=== PATIENT | female | born 1965 | race Caucasian/White ===

== ENCOUNTER 2017-07-18 10:08 | Emergency (ER) | payer SELFPAY ==
[2017-07-18] MEDS ORDERED: OXYCODONE-ACETAMINOPHEN 5-325 MG TABLET PO ONE (10:18)
[2017-07-18] MEDS ORDERED: ONDANSETRON 4 MG TAB.RAPDIS SL ONE (10:18)
--- NOTE | 2017-07-18 10:19 | ER Document Report ---
ED Medical Screen (RME) - General Chief Complaint: Abdominal Pain Stated Complaint: ABDOMINAL PAIN Time Seen by Provider: 07/18/17 10:17 Mode of Arrival: Wheelchair Information source: Patient TRAVEL OUTSIDE OF THE [place] IN LAST 30 DAYS: No - HPI Patient complains to provider of: Lower abdominal pain with vomiting and diarrhea Onset: Last week Notes: 07/18/17 10:19 Patient is a 52-year-old female who presents to the emergency room today complaining of 8 day history of vomiting and diarrhea with crampy abdominal pain in the lower portion of her abdomen, consistent with diverticulitis that she has had in the past which has required hospitalization, only abdominal surgery is gastric bypass approximately 16-17 years ago - Related Data Allergies/Adverse Reactions: morphine [Morphine] Allergy (Severe, Verified 10/21/15 17:16) Heart races, severe headache NSAIDS (Non-Steroidal Anti-Inflamma [Nsaids] Allergy (Severe, Verified 10/21/15 17:16) Severe diarrhea Past Medical History - Past Medical History Cardiac Medical History: Reports: Hx Hypertension Denies: Hx Atrial Fibrillation, Hx Congestive Heart Failure, Hx Coronary Artery Disease, Hx Heart Attack, Hx Hypercholesterolemia, Hx Peripheral Vascular Disease, Hx Pulmonary Embolism, Hx Heart Murmur Pulmonary Medical History: Reports: Hx Asthma, Hx Sleep Apnea Denies: Hx Bronchitis, Hx COPD, Hx Pneumonia, Hx Respiratory Failure, Hx Tuberculosis Neurological Medical History: Denies: Hx Cerebrovascular Accident, Hx Seizures Endocrine Medical History: Denies: Hx Graves' Disease, Hx Hyperthyroidism, Hx Hypothyroidism Renal/ Medical History: Reports: Hx Ovarian Cysts, Hx Pelvic Inflammatory Disease. Denies: Hx End Stage Renal Disease, Hx Kidney Stones, Hx Peritoneal Dialysis Malignancy Medical History: Denies: Hx Breast Cancer, Hx Cervical Cancer, Hx Leukemia, Hx Lung Cancer, Hx Ovarian Cancer GI Medical History: Reports: Hx Gastroesophageal Reflux Disease. 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 Denies: Hx Bowel Surgery, Hx Section, Hx Colostomy, Hx Coronary Artery Bypass Graft, Hx Hysterectomy, Hx Mastectomy, Hx Pacemaker, Hx Tubal Ligation - Immunizations Hx Diphtheria, Pertussis, Tetanus Vaccination: Yes Physical Exam - Vital signs Vitals: Temp Pulse Resp BP Pulse Ox 97.5 F 92 18 134/92 H 97 07/18/17 10:11 07/18/17 10:11 07/18/17 10:11 07/18/17 10:11 07/18/17 10:11 Course - Vital Signs Vital signs: Temp Pulse Resp BP Pulse Ox 97.5 F 92 18 134/92 H 97 07/18/17 10:11 07/18/17 10:11 07/18/17 10:11 07/18/17 10:11 07/18/17 10:11
[2017-07-18 11:14] LABS: ABSOLUTE BASOPHILS # (AUTO) 0.1 10^3/uL (0.0-0.2); ABSOLUTE EOSINOPHILS # (AUTO) 0.2 10^3/uL (0.0-0.6); ABSOLUTE LYMPHOCYTES (AUTO) 1.6 10^3/uL (0.5-4.7); ABSOLUTE MONOCYTES (AUTO) 0.4 10^3/uL (0.1-1.4); ABSOLUTE NEUT (AUTO) 10.2 10^3/uL (1.7-8.2); BASOPHILS % (AUTO) 0.9 % (0-2); EOSINOPHILS % (AUTO) 1.7 % (0-6); HEMOGLOBIN 12.5 g/dL (12.0-15.5); HGB HCT DIFFERENCE -1.5; LYMPHOCYTES % (AUTO) 12.5 % (13-45); MEAN CORPUSCULAR HEMOGLOBIN 30.1 pg (27.0-33.4); MEAN CORPUSCULAR VOLUME 94 fl (80-97); RED BLOOD COUNT 4.15 10^6/uL (3.72-5.28); RED CELL DISTRIBUTION WIDTH 14.5 % (11.5-14.0); SEGMENTED NEUTROPHILS % (AUTO) 81.9 % (42-78); WHITE BLOOD COUNT 12.5 10^3/uL (4.0-10.5)
[2017-07-18 11:15] LABS: APPEARANCE,URINE SLIGHTLY-CLOUDY
[2017-07-18 11:16] LABS: BILIRUBIN,URINE MODERATE (NEGATIVE); GLUCOSE, URINE NEGATIVE (NEGATIVE); KETONES,URINE 25 mg/dL (NEGATIVE)
[2017-07-18 11:18] LABS: URINE SPECIFIC GRAVITY 1.032
[2017-07-18 11:19] LABS: LEUKOCYTE ESTERASE,URINE LARGE (NEGATIVE); NITRITE,URINE NEGATIVE (NEGATIVE); PROTEIN,URINE 100 mg/dL (NEGATIVE); UROBILINOGEN,URINE NEGATIVE mg/dL (<2.0)
[2017-07-18 11:21] LABS: BACTERIA,URINE 1+ /HPF
[2017-07-18 11:27] LABS: ALANINE AMINOTRANSFERASE 14 U/L (9-52); ALBUMIN 4.9 g/dL (3.5-5.0); ALKALINE PHOSPHATASE 157 U/L (38-126); ANION GAP 18 (5-19); ASPARTATE AMINO TRANSFERASE 19 U/L (14-36); BILIRUBIN,DIRECT 0.4 mg/dL (0.0-0.4); BILIRUBIN,TOTAL 0.4 mg/dL (0.2-1.3); BLOOD UREA NITROGEN 30 mg/dL (7-20); CALCIUM 10.4 mg/dL (8.4-10.2); CARBON DIOXIDE 13 mmol/L (22-30); CHLORIDE 108 mmol/L (98-107); CREATININE RESULT 2.41 mg/dL (0.52-1.25); GLUCOSE 107 mg/dL (75-110); LIPASE 155.6 U/L (23-300); POTASSIUM 5.8 mmol/L (3.6-5.0); SODIUM 139.3 mmol/L (137-145); TOTAL PROTEIN 8.4 g/dL (6.3-8.2)
[2017-07-18] MEDS: NORMAL SALINE 1000 ML 1,000 ML IV PRN ×2 (12:22→14:05)
--- NOTE | 2017-07-18 12:25 | RADIOLOGY REPORT (SQ) ---
EXAM DESCRIPTION: CT ABD/PELVIS NO ORAL OR IV COMPLETED DATE/TIME: 07/18/2017 12:04 pm REASON FOR STUDY: lower abd pain COMPARISON: 05/27/2014 TECHNIQUE: CT scan of the abdomen and pelvis performed without intravenous or oral contrast. Images reviewed with lung, soft tissue, and bone windows. Reconstructed coronal and sagittal MPR images revi ewed. All images stored on PACS. All CT scanners at this facility use dose modulation, iterative reconstruction, and/or weight based d osing when appropriate to reduce radiation dose to as low as reasonably achievable (ALARA). [facility]: Dose Right [facility]: CareDose [facility]: Dose Right [facility]: Teradose 4D [facility]: Smart Brain Parade RADIATION DOSE: Up-to-date CT equipment and radiation dose reduction techniques were employed. CTDIv ol: 21.1 mGy. DLP: 1114 mGy-cm.mGy. LIMITATIONS: None. FINDINGS: LOWER CHEST: No significant findings. No nodules or infiltrates. NON-CONTRASTED LIVER, SPLEEN, ADRENALS: Evaluation limited by lack of IV contrast. No identified sign ificant masses. PANCREAS: No masses. No peripancreatic inflammatory changes. GALLBLADDER: Surgically absent. RIGHT KIDNEY AND URETER: No suspicious masses. Assessment limited by lack of IV contrast. No signif icant calcifications. No hydronephrosis or hydroureter. LEFT KIDNEY AND URETER: No suspicious masses. Assessment limited by lack of IV contrast. No signifi cant calcifications. No hydronephrosis or hydroureter. AORTA AND RETROPERITONEUM: No aneurysm. No retroperitoneal masses or adenopathy. BOWEL AND PERITONEAL CAVITY: There are postsurgical changes with evidence of prior gastric bypass. T here are clips in the right lower quadrant. APPENDIX: Surgically absent. PELVIS, BLADDER, AND ABDOMINAL WALL:There are anterior abdominal wall defects containing omental fat only. These are stable from prior study. IUD is in place. BONES: No significant findings. OTHER: No other significant finding. IMPRESSION: Anterior abdominal wall defect containing omental fat only. No acute findings in the ab domen or pelvis. COMMENT: Quality ID # [id number]: Final reports with documentation of one or more dose reduction techniques (e.g., Automated exposure control, adjustment of the mA and/or kV according to patient size, use of iterative reconstruction technique) TECHNICAL DOCUMENTATION: JOB ID: [id number]- All Rights Reserved
[2017-07-18] MEDS ORDERED: ONDANSETRON HCL INJ/PF 4 MG/2 ML SDV IV ONE (13:46)
[2017-07-18] MEDS ORDERED: TRAMADOL HCL 50 MG TABLET PO ONE (13:47)
[2017-07-18] MEDS ORDERED: SODIUM POLYSTYRENE SULFONATE 15 GM/60 ML PO ONE ×2 (13:55→15:51)
[2017-07-18 15:08] LABS: ANION GAP 15 (5-19); BLOOD UREA NITROGEN 28 mg/dL (7-20); CALCIUM 9.2 mg/dL (8.4-10.2); CARBON DIOXIDE 13 mmol/L (22-30); CHLORIDE 109 mmol/L (98-107); CREATININE RESULT 2.05 mg/dL (0.52-1.25); GLUCOSE 101 mg/dL (75-110); POTASSIUM 5.6 mmol/L (3.6-5.0); SODIUM 137.1 mmol/L (137-145)
--- NOTE | 2017-07-18 16:07 | ER Document Report ---
ED General - General Chief Complaint: Abdominal Pain Stated Complaint: ABDOMINAL PAIN Time Seen by Provider: 07/18/17 10:17 Mode of Arrival: Wheelchair TRAVEL OUTSIDE OF THE [place] IN LAST 30 DAYS: No - HPI Patient complains to provider of: Periumbilical abdominal pain tooth pain. Notes: Patient coming in patient is obese complaining of abdominal pain around her bellybutton. Patient states ongoing for a few days. Patient also complaining of tooth pain patient states she was recently placed on Bactrim for tooth pain patient states she just recently finished Bactrim patient thinks her pain is related to diverticulitis. Patient denies any fevers chills she does state that she is having some nausea vomiting and diarrhea at this time. Patient upon my evaluation resting comfortably in no obvious distress. - Related Data Allergies/Adverse Reactions: morphine [Morphine] Allergy (Severe, Verified 10/21/15 17:16) Heart races, severe headache NSAIDS (Non-Steroidal Anti-Inflamma [Nsaids] Allergy (Severe, Verified 10/21/15 17:16) Severe diarrhea Past Medical History - General Information source: Patient - Social History Smoking Status: Never Smoker Chew tobacco use (# tins/day): No Frequency of alcohol use: None Drug Abuse: None Family History: Reviewed & Not Pertinent - Past Medical History Cardiac Medical History: Reports: Hx Hypertension Denies: Hx Atrial Fibrillation, Hx Congestive Heart Failure, Hx Coronary Artery Disease, Hx Heart Attack, Hx Hypercholesterolemia, Hx Peripheral Vascular Disease, Hx Pulmonary Embolism, Hx Heart Murmur Pulmonary Medical History: Reports: Hx Asthma, Hx Sleep Apnea Denies: Hx Bronchitis, Hx COPD, Hx Pneumonia, Hx Respiratory Failure, Hx Tuberculosis Neurological Medical History: Denies: Hx Cerebrovascular Accident, Hx Seizures Endocrine Medical History: Reports: Hx Diabetes Mellitus Type 2 - borderline controlled by diet. Denies: Hx Graves' Disease, Hx Hyperthyroidism, Hx Hypothyroidism Renal/ Medical History: Reports: Hx Ovarian Cysts, Hx Pelvic Inflammatory Disease. Denies: Hx End Stage Renal Disease, Hx Kidney Stones, Hx Peritoneal Dialysis Malignancy Medical History: Denies: Hx Breast Cancer, Hx Cervical Cancer, Hx Leukemia, Hx Lung Cancer, Hx Ovarian Cancer GI Medical History: Reports: Hx Gastroesophageal Reflux Disease. 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 Denies: Hx Bowel Surgery, Hx Section, Hx Colostomy, Hx Coronary Artery Bypass Graft, Hx Hysterectomy, Hx Mastectomy, Hx Pacemaker, Hx Tubal Ligation - Immunizations Hx Diphtheria, Pertussis, Tetanus Vaccination: Yes Hx Pneumococcal Vaccination: 11/07/08 Review of Systems - Review of Systems Constitutional: No symptoms reported EENT: No symptoms reported Cardiovascular: No symptoms reported Respiratory: No symptoms reported Gastrointestinal: Abdominal pain, Nausea, Vomiting Genitourinary: No symptoms reported Female Genitourinary: No symptoms reported Musculoskeletal: No symptoms reported Skin: No symptoms reported Hematologic/Lymphatic: No symptoms reported Neurological/Psychological: No symptoms reported -: Yes All other systems reviewed and negative Physical Exam - Vital signs Vitals: Temp Pulse Resp BP Pulse Ox 97.5 F 92 18 134/92 H 97 07/18/17 10:11 07/18/17 10:11 07/18/17 10:11 07/18/17 10:11 07/18/17 10:11 Interpretation: Normal - General General appearance: Appears well, Alert - HEENT Head: Normocephalic, Atraumatic Eyes: Normal Pupils: PERRL Teeth diagram: 1 - Dental carry without signs of abscess or gingival cellulitis - Respiratory Respiratory status: No respiratory distress Chest status: Nontender Breath sounds: Normal Chest palpation: Normal - Cardiovascular Rhythm: Regular Heart sounds: Normal auscultation Murmur: No - Abdominal Inspection: Normal Distension: No distension Bowel sounds: Normal Tenderness: Nontender Organomegaly: No organomegaly - Back Back: Normal, Nontender - Extremities General upper extremity: Normal inspection, Nontender, Normal color, Normal ROM , Normal temperature General lower extremity: Normal inspection, Nontender, Normal color, Normal ROM , Normal temperature, Normal weight bearing. No: Cole's sign - Neurological Neuro grossly intact: Yes Cognition: Normal Orientation: AAOx4 [place] Coma Scale Eye Opening: Spontaneous [place] Coma Scale Verbal: Oriented [place] Coma Scale Motor: Obeys Commands [place] Coma Scale Total: 15 Speech: Normal Motor strength normal: LUE, RUE, LLE, RLE Sensory: Normal - Psychological Associated symptoms: Normal affect, Normal mood - Skin Skin Temperature: Warm Skin Moisture: Dry Skin Color: Normal Course - Re-evaluation Re-evalutation: 07/18/17 18:30 Patient's lab work shows elevated potassium with elevation in her BUN and creatinine. Patient does have underlying renal insufficiency more than likely the elevation is due to recent Bactrim. Patient was given IV fluids and recheck with decrease in the patient's potassium also a improvement of the renal state. EKG does not show any peaked T waves. Patient was given a dose of lactulose. The explained to the patient that she will need to follow-up in 1 week for repeat results to make sure that she drinks plenty of fluids. No sneeze of antibiotics at this time abdominal pain more likely caused by hernia. - Vital Signs Vital signs: Temp Pulse Resp BP Pulse Ox 97.5 F 104 H 18 154/103 H 97 07/18/17 10:11 07/18/17 16:29 07/18/17 16:29 07/18/17 16:29 07/18/17 16:29 - Laboratory Result Diagrams: 07/18/17 10:42 07/18/17 14:30 Laboratory results interpreted by me: 07/18/17 07/18/17 07/18/17 10:42 10:42 10:42 WBC 12.5 H RDW 14.5 H Plt Count 555 H Seg Neutrophils % 81.9 H Lymphocytes % 12.5 L Absolute Neutrophils 10.2 H Potassium 5.8 H Chloride 108 H Carbon Dioxide 13 L BUN 30 H Creatinine 2.41 H Est GFR ( Amer) 25 L Est GFR (Non-Af Amer) 21 L Calcium 10.4 H Alkaline Phosphatase 157 H Total Protein 8.4 H Urine Protein 100 H Urine Ketones 25 H Urine Bilirubin MODERATE H Ur Leukocyte Esterase LARGE H 07/18/17 14:30 WBC RDW Plt Count Seg Neutrophils % Lymphocytes % Absolute Neutrophils Potassium 5.6 H Chloride 109 H Carbon Dioxide 13 L BUN 28 H Creatinine 2.05 H Est GFR ( Amer) 31 L Est GFR (Non-Af Amer) 25 L Calcium Alkaline Phosphatase Total Protein Urine Protein Urine Ketones Urine Bilirubin Ur Leukocyte Esterase Discharge - Discharge Clinical Impression: Renal insufficiency, Abdominal pain from hernia, Dental caries, Serum potassium elevated, Yeast infection Condition: Good Disposition: HOME, SELF-CARE Instructions: Abdominal Pain ([facility]), Dentist Additional Instructions: Your laboratory studies today show signs of elevation in your potassium and your renal function. After IV hydration your renal function has almost improved to her baseline and your potassium has improved as well. Slightly elevated however at this time we can discharge her home. More likely this is due to the antibiotics that you were recently prescribed. I am going to give you a medication called Kayexalate that will help to eliminate the potassium thru her stool. I would highly recommend following up with your primary care physician local urgent care clinic or return to the ER in 1 week for repeat lab draw to make sure that her potassium has returned to a normal level. Your oral examination does reveal a severe dental carry this tooth does not look to have an abscess and at this time no signs of infection. To aid in the pain he will eventually need to have these teeth removed. He may follow-up with the distal clinics provided. Your abdominal pain is more likely due to a fat-containing hernia in the middle of the stomach. Take pain medication as prescribed Return to the ER symptoms worsen. Prescriptions: Metoclopramide HCl [Reglan] 5 mg PO Q6 #30 tablet Ondansetron [Zofran Odt 4 mg Tablet] 1 - 2 tab PO Q4H PRN #15 tab.rapdis PRN Reason: For Nausea/Vomiting Tramadol HCl [Ultram 50 mg Tablet] 50 mg PO ASDIR PRN #20 tablet PRN Reason: Forms: Follow-Up Laboratory Testing Referrals: SIMONA LARA MD [Primary Care Provider] - Follow up as needed
[2017-07-18] MEDS ORDERED: FLUCONAZOLE 100 MG TABLET PO ONE (16:27)
[2017-07-18 17:36] VITALS: BP 154/103
--- NOTE | 2017-07-18 20:31 | EKG REPORT ---
SEVERITY:- BORDERLINE ECG - SINUS RHYTHM CONSIDER ANTERIOR INFARCT : Confirmed by: Linda Sarah 18-Jul-2017 20:30:26
== END 2017-07-18 16:45 | disposition home or self-care (01) ==
LOC: ER 10:08
DX: N28.9 Disorder of kidney and ureter, unspecified (principal); K46.9 Unspecified abdominal hernia without obstruction or gangrene; E87.5 Hyperkalemia; B37.9 Candidiasis, unspecified; R10.33 Periumbilical pain; K08.89 Other specified disorders of teeth and supporting structures
CPT/HCPCS: 93005; 99284; 96361; 96374; 36415; 87086; 83690; 85025; 80048; 80053; 81001; 74176; 93010; S0119; J2405; J7030

== ENCOUNTER 2017-07-30 09:20 | Emergency (ER) | payer SELFPAY ==
[2017-07-30] MEDS ORDERED: ASPIRIN 81 MG TABLET, CHEWABLE PO ONE (09:32)
--- NOTE | 2017-07-30 09:49 | ER Document Report ---
ED Medical Screen (RME) - General Chief Complaint: Chest Pain Stated Complaint: CHEST PAIN Time Seen by Provider: 07/30/17 09:45 Mode of Arrival: Wheelchair Information source: Patient Notes: 52-year-old female history of hypertension presents with complaints of chest pain that started yesterday, patient notes it is sharp pain initially on the right side rating between her shoulder blades now intermittent sharp pain on left side with occasional twinges down the left arm I have greeted and performed a rapid initial assessment of this patient. A comprehensive ED assessment and evaluation of the patient, analysis of test results and completion of the medical decision making process will be conducted by additional ED providers. PHYSICAL EXAMINATION: GENERAL: Well-appearing, well-nourished and in no acute distress. HEAD: Atraumatic, normocephalic. EYES: Pupils equal round extraocular movements intact, conjunctiva are normal. ENT: Nares patent NECK: Normal range of motion LUNGS: No respiratory distress Musculoskeletal: Normal range of motion NEUROLOGICAL: Normal speech, normal gait. PSYCH: Normal mood, normal affect. SKIN: Warm, Dry, normal turgor, no rashes or lesions noted. TRAVEL OUTSIDE OF THE [place] IN LAST 30 DAYS: No - Related Data Allergies/Adverse Reactions: morphine [Morphine] Allergy (Severe, Verified 07/30/17 09:35) Heart races, severe headache NSAIDS (Non-Steroidal Anti-Inflamma [Nsaids] Allergy (Severe, Verified 07/30/17 09:35) Severe diarrhea Past Medical History - Social History Chew tobacco use (# tins/day): No Frequency of alcohol use: None Drug Abuse: None - Past Medical History Cardiac Medical History: Reports: Hx Hypertension Denies: Hx Atrial Fibrillation, Hx Congestive Heart Failure, Hx Coronary Artery Disease, Hx Heart Attack, Hx Hypercholesterolemia, Hx Peripheral Vascular Disease, Hx Pulmonary Embolism, Hx Heart Murmur Pulmonary Medical History: Reports: Hx Asthma, Hx Sleep Apnea Denies: Hx Bronchitis, Hx COPD, Hx Pneumonia, Hx Respiratory Failure, Hx Tuberculosis Neurological Medical History: Denies: Hx Cerebrovascular Accident, Hx Seizures Endocrine Medical History: Reports: Hx Diabetes Mellitus Type 2 - borderline controlled by diet. Denies: Hx Graves' Disease, Hx Hyperthyroidism, Hx Hypothyroidism Renal/ Medical History: Reports: Hx Ovarian Cysts, Hx Pelvic Inflammatory Disease. Denies: Hx End Stage Renal Disease, Hx Kidney Stones, Hx Peritoneal Dialysis Malignancy Medical History: Denies: Hx Breast Cancer, Hx Cervical Cancer, Hx Leukemia, Hx Lung Cancer, Hx Ovarian Cancer GI Medical History: Reports: Hx Gastroesophageal Reflux Disease. 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 Denies: Hx Bowel Surgery, Hx Section, Hx Colostomy, Hx Coronary Artery Bypass Graft, Hx Hysterectomy, Hx Mastectomy, Hx Pacemaker, Hx Tubal Ligation - Immunizations Hx Diphtheria, Pertussis, Tetanus Vaccination: Yes Physical Exam - Vital signs Vitals: Temp Pulse Resp BP Pulse Ox 97.7 F 74 20 154/95 H 97 07/30/17 09:35 07/30/17 09:35 07/30/17 09:35 07/30/17 09:35 07/30/17 09:35 Course - Vital Signs Vital signs: Temp Pulse Resp BP Pulse Ox 97.7 F 74 20 154/95 H 97 07/30/17 09:35 07/30/17 09:35 07/30/17 09:35 07/30/17 09:35 07/30/17 09:35
[2017-07-30 10:36] LABS: ABSOLUTE BASOPHILS # (AUTO) 0.1 10^3/uL (0.0-0.2); ABSOLUTE EOSINOPHILS # (AUTO) 0.4 10^3/uL (0.0-0.6); ABSOLUTE LYMPHOCYTES (AUTO) 1.4 10^3/uL (0.5-4.7); ABSOLUTE MONOCYTES (AUTO) 0.5 10^3/uL (0.1-1.4); BASOPHILS % (AUTO) 0.7 % (0-2); EOSINOPHILS % (AUTO) 5.2 % (0-6); HEMATOCRIT 30.1 % (36.0-47.0); HGB HCT DIFFERENCE -0.1; LYMPHOCYTES % (AUTO) 16.9 % (13-45); MEAN CORPUSCULAR HEMOGLOBIN 30.4 pg (27.0-33.4); MEAN CORPUSCULAR HGB CONC 33.2 g/dL (32.0-36.0); MEAN CORPUSCULAR VOLUME 92 fl (80-97); MONOCYTES % (AUTO) 5.9 % (3-13); RED BLOOD COUNT 3.28 10^6/uL (3.72-5.28); RED CELL DISTRIBUTION WIDTH 14.6 % (11.5-14.0); SEGMENTED NEUTROPHILS % (AUTO) 71.3 % (42-78); WHITE BLOOD COUNT 8.4 10^3/uL (4.0-10.5)
[2017-07-30 10:56] LABS: ALANINE AMINOTRANSFERASE 13 U/L (9-52); ALBUMIN 3.7 g/dL (3.5-5.0); ALKALINE PHOSPHATASE 111 U/L (38-126); ANION GAP 13 (5-19); ASPARTATE AMINO TRANSFERASE 17 U/L (14-36); BILIRUBIN,DIRECT 0.2 mg/dL (0.0-0.4); BILIRUBIN,TOTAL 0.2 mg/dL (0.2-1.3); BLOOD UREA NITROGEN 13 mg/dL (7-20); CALCIUM 9.3 mg/dL (8.4-10.2); CARBON DIOXIDE 17 mmol/L (22-30); CHLORIDE 111 mmol/L (98-107); CREATINE KINASE 80 U/L (30-135); GLUCOSE 93 mg/dL (75-110); POTASSIUM 4.3 mmol/L (3.6-5.0); SODIUM 141.4 mmol/L (137-145); TOTAL PROTEIN 6.5 g/dL (6.3-8.2)
[2017-07-30 11:07] LABS: CREATINE KINASE MB 1.25 ng/mL (<4.55)
[2017-07-30 11:08] LABS: TROPONIN I < 0.012 ng/mL
--- NOTE | 2017-07-30 11:08 | RADIOLOGY REPORT (SQ) ---
EXAM DESCRIPTION: CHEST SINGLE VIEW COMPLETED DATE/TIME: 07/30/2017 10:43 am REASON FOR STUDY: chest pain COMPARISON: Chest films 07/12/2007, 04/20/2012 EXAM PARAMETERS: NUMBER OF VIEWS: One view. TECHNIQUE: Single frontal radiographic view of the chest acquired. RADIATION DOSE: NA LIMITATIONS: Large patient, AP portable technique FINDINGS: LUNGS AND PLEURA: No opacities, masses or pneumothorax. No pleural effusion. MEDIASTINUM AND HILAR STRUCTURES: No masses. Contour normal. HEART AND VASCULAR STRUCTURES: Heart normal in size. Normal vasculature. BONES: No acute findings. HARDWARE: None in the chest. OTHER: No other significant finding. IMPRESSION: NO ACUTE RADIOGRAPHIC FINDING IN THE CHEST. TECHNICAL DOCUMENTATION: JOB ID: [id number]
[2017-07-30] MEDS ORDERED: IPRATROPIUM/ALBUTEROL 0.5-2.5 MG/3 ML AMPUL NEB ONE (11:41)
[2017-07-30 14:30] LABS: APPEARANCE,URINE SLIGHTLY-CLOUDY; BILIRUBIN,URINE NEGATIVE (NEGATIVE); GLUCOSE, URINE NEGATIVE (NEGATIVE); KETONES,URINE NEGATIVE (NEGATIVE); LEUKOCYTE ESTERASE,URINE TRACE (NEGATIVE); NITRITE,URINE NEGATIVE (NEGATIVE); PROTEIN,URINE 30 mg/dL (NEGATIVE); UROBILINOGEN,URINE NEGATIVE mg/dL (<2.0)
[2017-07-30] MEDS ORDERED: ALBUTEROL SULFATE HFA (90 MCG/PUFF) 8 GM MDI (1 MDI/ER DISP) IH ONE (14:44)
[2017-07-30] MEDS ORDERED: PREDNISONE 20 MG TABLET PO ONE (14:44)
--- NOTE | 2017-07-30 14:49 | ER Document Report ---
ED General - General Chief Complaint: Chest Pain Stated Complaint: CHEST PAIN Time Seen by Provider: 07/30/17 09:45 Mode of Arrival: Wheelchair TRAVEL OUTSIDE OF THE [place] IN LAST 30 DAYS: No - HPI Patient complains to provider of: Chest pain Notes: Patient coming in for evaluation of chest pain. PatientStates ongoing since day prior to arrival. Patient states substernal chest pain that goes to the right side. Patient denies any recent trauma patient states slight shortness of breath. Patient denies any sick contacts denies any recent travel. Patient resting comfortably upon my evaluation. - Related Data Allergies/Adverse Reactions: morphine [Morphine] Allergy (Severe, Verified 07/30/17 09:35) Heart races, severe headache NSAIDS (Non-Steroidal Anti-Inflamma [Nsaids] Allergy (Severe, Verified 07/30/17 09:35) Severe diarrhea Past Medical History - General Information source: Patient - Social History Smoking Status: Never Smoker Chew tobacco use (# tins/day): No Frequency of alcohol use: None Drug Abuse: None Family History: Reviewed & Not Pertinent - Past Medical History Cardiac Medical History: Reports: Hx Hypertension Denies: Hx Atrial Fibrillation, Hx Congestive Heart Failure, Hx Coronary Artery Disease, Hx Heart Attack, Hx Hypercholesterolemia, Hx Peripheral Vascular Disease, Hx Pulmonary Embolism, Hx Heart Murmur Pulmonary Medical History: Reports: Hx Asthma, Hx Sleep Apnea Denies: Hx Bronchitis, Hx COPD, Hx Pneumonia, Hx Respiratory Failure, Hx Tuberculosis Neurological Medical History: Denies: Hx Cerebrovascular Accident, Hx Seizures Endocrine Medical History: Reports: Hx Diabetes Mellitus Type 2 - borderline controlled by diet. Denies: Hx Graves' Disease, Hx Hyperthyroidism, Hx Hypothyroidism Renal/ Medical History: Reports: Hx Ovarian Cysts, Hx Pelvic Inflammatory Disease. Denies: Hx End Stage Renal Disease, Hx Kidney Stones, Hx Peritoneal Dialysis Malignancy Medical History: Denies: Hx Breast Cancer, Hx Cervical Cancer, Hx Leukemia, Hx Lung Cancer, Hx Ovarian Cancer GI Medical History: Reports: Hx Gastroesophageal Reflux Disease. 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 Denies: Hx Bowel Surgery, Hx Section, Hx Colostomy, Hx Coronary Artery Bypass Graft, Hx Hysterectomy, Hx Mastectomy, Hx Pacemaker, Hx Tubal Ligation - Immunizations Hx Diphtheria, Pertussis, Tetanus Vaccination: Yes Hx Pneumococcal Vaccination: 11/07/08 Review of Systems - Review of Systems Constitutional: No symptoms reported EENT: No symptoms reported Cardiovascular: Chest pain Respiratory: No symptoms reported Gastrointestinal: No symptoms reported Genitourinary: No symptoms reported Female Genitourinary: No symptoms reported Musculoskeletal: No symptoms reported Skin: No symptoms reported Hematologic/Lymphatic: No symptoms reported Neurological/Psychological: No symptoms reported -: Yes All other systems reviewed and negative Physical Exam - Vital signs Vitals: Temp Pulse Resp BP Pulse Ox 97.7 F 74 20 154/95 H 97 07/30/17 09:35 07/30/17 09:35 07/30/17 09:35 07/30/17 09:35 07/30/17 09:35 Interpretation: Normal - General General appearance: Appears well, Alert - HEENT Head: Normocephalic, Atraumatic Eyes: Normal Pupils: PERRL - Respiratory Respiratory status: No respiratory distress Chest status: Tender Breath sounds: Wheezing Chest palpation: Normal - Cardiovascular Rhythm: Regular Heart sounds: Normal auscultation Murmur: No - Abdominal Inspection: Normal Distension: No distension Bowel sounds: Normal Tenderness: Nontender Organomegaly: No organomegaly - Back Back: Normal, Nontender - Extremities General upper extremity: Normal inspection, Nontender, Normal color, Normal ROM , Normal temperature General lower extremity: Normal inspection, Nontender, Normal color, Normal ROM , Normal temperature, Normal weight bearing. No: Cole's sign - Neurological Neuro grossly intact: Yes Cognition: Normal Orientation: AAOx4 Jose Coma Scale Eye Opening: Spontaneous Jose Coma Scale Verbal: Oriented [place] Coma Scale Motor: Obeys Commands Jose Coma Scale Total: 15 Speech: Normal Motor strength normal: LUE, RUE, LLE, RLE Sensory: Normal - Psychological Associated symptoms: Normal affect, Normal mood - Skin Skin Temperature: Warm Skin Moisture: Dry Skin Color: Normal Course - Re-evaluation Re-evalutation: 07/30/17 14:46 Patient coming in for evaluation of chest pain. Chest x-ray and laboratory studies are negative for any acute pathology. Patient's wheezing did improve that there are no large treatment. More likely pain could be viral etiology patient's vital signs have remained stable while here in the ER. Will discharge patient home will treat for viral URI. - Vital Signs Vital signs: Temp Pulse Resp BP Pulse Ox 97.7 F 74 9 L 135/60 H 97 07/30/17 09:35 07/30/17 09:35 07/30/17 11:11 07/30/17 11:11 07/30/17 11:11 - Laboratory Result Diagrams: 07/30/17 10:02 07/30/17 10:02 Laboratory results interpreted by me: 07/30/17 07/30/17 07/30/17 10:02 10:02 13:53 RBC 3.28 L Hgb 10.0 L Hct 30.1 L RDW 14.6 H Chloride 111 H Carbon Dioxide 17 L Creatinine 1.30 H Est GFR ( Amer) 52 L Est GFR (Non-Af Amer) 43 L Urine Protein 30 H Ur Leukocyte Esterase TRACE H Discharge - Discharge Clinical Impression: Viral URI, Chest wall pain Condition: Good Disposition: HOME, SELF-CARE Instructions: Anti-Inflammatory Medication ([facility]), Chest Wall Pain ([facility]), Upper Respiratory Illness ([facility]) Additional Instructions: Evaluation today reveals no signs of critical pathology. Laboratory studies are negative forAny signs of cardiac ischemia.Your EKG is also normal. Chest x- ray does not show any signs of infection. I do believe that your symptoms are more likely due to a viral cause causing you to wheeze and have myalgias or muscle pain. Take medications as prescribed follow-up with your primary care physician recommend taking the albuterol inhaler 2 puffs every 4 hours as needed for shortness of breath. Prescriptions: Prednisone [Deltasone] 60 mg PO DAILY #24 tablet Forms: Return to Work
[2017-07-30 15:24] VITALS: BP 148/90
--- NOTE | 2017-07-31 08:17 | EKG REPORT ---
SEVERITY:- DEFECTIVE ECG - REGULAR RHYTHM MINIMAL ST DEPRESSION, LATERAL LEADS : Confirmed by: Cb Talbot MD 31-Jul-2017 08:17:13
== END 2017-07-30 15:24 | disposition home or self-care (01) ==
LOC: ER 09:20
DX: J06.9 Acute upper respiratory infection, unspecified (principal); B34.9 Viral infection, unspecified; R07.89 Other chest pain
CPT/HCPCS: 93005; 94640; 99285; 36415; 82553; 82550; 85025; 80053; 81001; 84484; 71010; 93010; J7512; J3490; J7620

== ENCOUNTER 2017-08-07 10:12 | Emergency (ER) | payer SELFPAY ==
[2017-08-07] MEDS ORDERED: DEXAMETHASONE SOD PHOS INJ 10 MG/1 ML VIAL IM ONE (11:03)
[2017-08-07] MEDS ORDERED: ONDANSETRON 4 MG TAB.RAPDIS PO ONE (11:04)
[2017-08-07] MEDS ORDERED: KETOROLAC TROMETHAMINE 60 MG/2 ML SDV IM ONE (11:04)
--- NOTE | 2017-08-07 11:32 | RADIOLOGY REPORT (SQ) ---
EXAM DESCRIPTION: L SPINE WHOLE COMPLETED DATE/TIME: 08/07/2017 11:25 am REASON FOR STUDY: pain increase with movement COMPARISON: None. NUMBER OF VIEWS: Five views including obliques. TECHNIQUE: AP, lateral, oblique, and sacral radiographic images acquired of the lumbar spine. LIMITATIONS: None. FINDINGS: MINERALIZATION: Normal. SEGMENTATION: Normal. No transitional anatomy. ALIGNMENT: Normal. VERTEBRAE: Maintained height. No fracture or worrisome bone lesion. DISCS: Multilevel disc space narrowing with osteophytes. POSTERIOR ELEMENTS: Pedicles and facets are intact. No pars defect or posterior arch defects. Facet arthropathy is present. HARDWARE: Left hip arthroplasty. PARASPINAL SOFT TISSUES: Normal. PELVIS: Intact as visualized. No fractures or worrisome bone lesions. SI joints intact. OTHER: No other significant finding. IMPRESSION: SPONDYLOSIS WITHOUT BONE LESION OR FRACTURE. TECHNICAL DOCUMENTATION: JOB ID: [id number] [employer]- All Rights Reserved
--- NOTE | 2017-08-07 11:34 | RADIOLOGY REPORT (SQ) ---
EXAM DESCRIPTION: HIP RIGHT AP/LATERAL COMPLETED DATE/TIME: 08/07/2017 11:25 am REASON FOR STUDY: pain increase with movement COMPARISON: None. NUMBER OF VIEWS: Two views. TECHNIQUE: AP pelvis and additional AP and frog-leg view of the right hip. LIMITATIONS: Body habitus. FINDINGS: There is joint space narrowing and osteophyte formation in the right hip status post left hip arthroplasty. No evidence of fracture or dislocation. IMPRESSION: Osteoarthritis. No acute findings. TECHNICAL DOCUMENTATION: JOB ID: [id number]- All Rights Reserved
[2017-08-07] MEDS ORDERED: LIDOCAINE 5% (700 MG) TRANSDERMAL ADH..PATCH TP ONE (11:47)
--- NOTE | 2017-08-07 11:47 | ER Document Report ---
ED Neck/Back Problem - General Chief Complaint: Low Back Pain Stated Complaint: BACK PAIN Time Seen by Provider: 08/07/17 10:51 Mode of Arrival: Ambulatory Information source: Patient Notes: 52-year-old female presents to ED for complaint of back pain for the last several years hip and groin pain for the last several months. She states it is progressively getting worse. She has not no loss control of bowel bladder. No loss control of muscles to the legs. No loss of sensation to the groin. She does have increasing diarrhea and nausea which is her normal. She is awake alert and oriented and able to answer all questions. She has pupils equally react to light and speaks in full sentences. She denies any new onset of weakness. TRAVEL OUTSIDE OF THE [place] IN LAST 30 DAYS: No - HPI Patient complains to provider of: Pain, Lower back. No: Injury Onset: Other - Low back for several years right hip and groin for several months Where: Home Onset: Chronic Timing: Still present, Worse Quality of pain: Sharp Pain Level: 4 Recent injury: No Associated symptoms: Like prior neck/back pain, Radiation to leg, Lower back pain. denies: Constipation, Incontinence, Sensory loss, Unable to urinate Exacerbated by: Movement of trunk, Sitting position Relieved by: Nothing Similar symptoms previously: Yes Recently seen / treated by doctor: No - Related Data Allergies/Adverse Reactions: morphine [Morphine] Allergy (Severe, Verified 08/07/17 10:23) Heart races, severe headache NSAIDS (Non-Steroidal Anti-Inflamma [Nsaids] Allergy (Severe, Verified 08/07/17 10:23) Severe diarrhea Past Medical History - General Information source: Patient - Social History Smoking Status: Never Smoker Cigarette use (# per day): No Chew tobacco use (# tins/day): No Smoking Education Provided: No Frequency of alcohol use: None Drug Abuse: None Occupation: None Lives with: Family Family History: Arthritis, CAD, COPD, DM, Hyperlipidemia, Hypertension, Malignancy. denies: CVA, Thyroid Disfunction Patient has suicidal ideation: No Patient has homicidal ideation: No - Past Medical History Cardiac Medical History: Reports: Hx Hypertension Pulmonary Medical History: Reports: Hx Asthma, Hx Bronchitis, Hx Sleep Apnea Neurological Medical History: Reports: Hx Migraine Endocrine Medical History: Reports: Hx Diabetes Mellitus Type 2 - borderline controlled by diet Renal/ Medical History: Reports: Hx End Stage Renal Disease - Stage III, Hx Ovarian Cysts, Hx Pelvic Inflammatory Disease Malignancy Medical History: Reports: None GI Medical History: Reports: Hx Diverticulitis, Hx Gastritis, Hx Gastroesophageal Reflux Disease, Hx Colonoscopy, Hx Endoscopy Musculoskeltal Medical History: Reports Hx Arthritis - 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, Reports Hx Fibromyalgia, Reports Hx Musculoskeletal Deformity, Reports Hx Musculoskeletal Trauma Skin Medical History: Reports Hx Eczema, Reports Hx MRSA Psychiatric Medical History: Reports: Hx Anxiety, Hx Depression Traumatic Medical History: Reports: Hx Fractures - so ankles, thumb Infectious Medical History: Reports: Hx MRSA Past Surgical History: Reports: Hx Appendectomy, Hx Cholecystectomy, Hx Gastric Bypass Surgery, Hx Herniorrhaphy - umbilical, Hx Orthopedic Surgery - Left hip replaced., Hx Tonsillectomy - Immunizations Hx Diphtheria, Pertussis, Tetanus Vaccination: Yes - 2014 Hx Pneumococcal Vaccination: 11/07/08 Review of Systems - Review of Systems Constitutional: No symptoms reported EENT: No symptoms reported Cardiovascular: No symptoms reported Respiratory: No symptoms reported Gastrointestinal: No symptoms reported Genitourinary: No symptoms reported Female Genitourinary: No symptoms reported Musculoskeletal: Back pain, Muscle pain, Muscle stiffness Skin: No symptoms reported Hematologic/Lymphatic: No symptoms reported Neurological/Psychological: No symptoms reported -: Yes All other systems reviewed and negative Physical Exam - Vital signs Vitals: Temp Pulse Resp BP Pulse Ox 97.9 F 67 20 172/98 H 99 08/07/17 10:17 08/07/17 10:17 08/07/17 10:17 08/07/17 10:17 08/07/17 10:17 Interpretation: Normal - General General appearance: Appears well, Alert - HEENT Head: Normocephalic, Atraumatic Eyes: Normal Pupils: PERRL - Respiratory Respiratory status: No respiratory distress Chest status: Nontender Breath sounds: Normal Chest palpation: Normal - Cardiovascular Rhythm: Regular Heart sounds: Normal auscultation Murmur: No - Abdominal Inspection: Normal Distension: No distension Bowel sounds: Normal Tenderness: Nontender Organomegaly: No organomegaly - Back Back: Normal, Tender. No: Deformity/step-off, CVA tenderness, Vertebra tenderness, Scars, Scoliosis, Wounds - Extremities General upper extremity: Normal inspection, Nontender, Normal color, Normal ROM , Normal temperature General lower extremity: Normal inspection, Nontender, Normal color, Normal ROM , Normal temperature, Normal weight bearing. No: Cole's sign - Neurological Neuro grossly intact: Yes Cognition: Normal Orientation: AAOx4 Jose Coma Scale Eye Opening: Spontaneous Jose Coma Scale Verbal: Oriented [place] Coma Scale Motor: Obeys Commands Jose Coma Scale Total: 15 Speech: Normal Motor strength normal: LUE, RUE, LLE, RLE Sensory: Normal - Psychological Associated symptoms: Normal affect, Normal mood - Skin Skin Temperature: Warm Skin Moisture: Dry Skin Color: Normal Course - Re-evaluation Re-evalutation: 08/07/17 11:46 Denies any loss control of bowel bladder, denies any loss control of the muscles to the legs, denies any loss of sensation to the groin, denies any saddle anesthesia, denies any signs or symptoms of cauda equina. Patient states she has had no increase in weakness. She just has had an increase in her pain. She states she does not get up and move around she sits most of the time. Patient denies any fall or injuries. Discussed x-rays with patient will discharge home patient was treated with Toradol Decadron and Lidoderm patch and will be discharged home with a Lidoderm patch. - Vital Signs Vital signs: Temp Pulse Resp BP Pulse Ox 97.9 F 60 20 170/99 H 100 08/07/17 11:57 08/07/17 11:57 08/07/17 11:57 08/07/17 11:57 08/07/17 11:57 - Diagnostic Test Radiology reviewed: Image reviewed, Reports reviewed Discharge - Discharge Clinical Impression: Low back pain Qualifiers: Chronicity: chronic Back pain laterality: bilateral Sciatica presence: with sciatica Sciatica laterality: bilateral sciatica Qualified Code(s): M54.42 - Lumbago with sciatica, left side Condition: Stable Disposition: HOME, SELF-CARE Instructions: Stretching Exercises for the Back ([facility]) Additional Instructions: LOW BACK PAIN: Three out of every four people will have an episode of disabling back pain during their lifetime. Most commonly the pain is due to straining of the muscles and ligaments in the low back. Usual treatment includes: (1) Rest on a firm surface. Avoid lying on your stomach. (2) Ice pack the painful area. After a few days, gentle heat may be used intermittently to relax the area, or ice packs can be continued. (3) Medication may be needed -- muscle relaxers and antiinflammatory medicines are commonly used. (4) As the back improves, exercises are prescribed to strengthen the back and abdominal muscles. Your doctor will advise you on the proper care for your back at each stage in your recovery. You may be better in a few days -- or healing may take several weeks. If new symptoms of a "herniated disc" (radiation of pain, numbness, or tingling down the back of the leg or weakness in the leg) occur, you should be re-examined. Further testing may be necessary. Chronic Pain Control Stress, inactivity, and depression make pain more severe regardless of the cause of the pain. Stress and poor physical condition can cause pain such as headaches and backache. Relaxation: Rest in a quiet place with your eyes closed for 20 minutes twice daily. Concentrate on a pleasant image, or simply "feel" your breathing. Clear your mind. Stress management: Deal with your "stressors." Either take action, or eliminate the stressor from your life. Don't let things hang over you. Accept those things you can't change. Nutrition: Eat small, balanced meals -- don't skip, don't overeat. Meals should be high-carbohydrate, low-sugar, low-fat. Exercise: Exercise helps painful conditions and eases stress. Get 30 minutes of moderate exercise, five days a week. Do an activity that does not flare your pain. Precautions: Pain which continues to disrupt daily activities, or which changes in nature, requires a medical evaluation. Pain Clinic referral is available. We do not manage chronic pain in the Emergency Department. We will try to appropriately help you through an acute flare of your chronic painful condition , but for on-going chronic pain that does not improve, you will need to see your private doctor or picture painter. We do not provide repeated medication management of chronic painful conditions. If you wish, we can provide the name of local pain management physicians. Toradol Injection You have been given an injection of ketorolac tromethamine (Toradol). This is an excellent, safe drug for pain control. It also has potent antiinflammatory action. You should have significant pain relief within about one hour. Toradol is not addicting and is non-sedating. It does not interfere with driving or work. Call or return if you develop itching, hives, shortness of breath, or rash. STEROID MEDICATION: You have been given an injection of medicine of the cortisone/steroid class. This medication is used to control inflammation or allergy. It is often continued as a pill for a short period of time, until the acute process subsides. There are usually no side effects from short-term use of cortisone-like medications. Some persons feel an increased sense of well-being and are not sleepy at bedtime. Long-term use of cortisone medications is best avoided, unless required for a severe condition. If your condition does not remit, or relapses after the course of corticosteroid medication, you should consult your physician. ICE PACKS: Apply ice packs frequently against the painful area. Many different schedules are recommended, such as "20 minutes on, 20 minutes off" or "one hour ice, two hours rest." If you need to work, you may need to go longer between ice treatments. You should plan to have the area ice packed AT LEAST one fourth of the time. The ice should be applied over the wrap, tape, or splint, or over a layer of cloth -- not directly against the skin. Some ice bags have a built-in cloth and can be put directly on the skin. WARM PACKS: After approximately two days, apply gentle heat (such as a heating pad or hot water bottle) for about 20 to 30 minutes about every two hours -- at least four times daily. Warmth and elevation will help you make a more rapid recovery , and will ease the pain considerably. Do not use HOT heat, and never apply heat for longer than 30 minutes. The continuous heat can invisibly damage skin and muscles -- even when no burn is seen on the surface. Damaged muscles can make you MORE sore. If he cannot afford the Lidoderm patches that I prescribed to use Aspercreme it is a lesser strength that the Lidoderm patches. FOLLOW-UP CARE: If you have been referred to a physician for follow-up care, call the physician s office for an appointment as you were instructed or within the next two days. If you experience worsening or a significant change in your symptoms, notify the physician immediately or return to the Emergency Department at any time for re-evaluation. Prescriptions: Lidocaine [Lidoderm 5% (700 mg) Transdermal Patch] 1 patch TP DAILY #30 adh..patch Forms: Elevated Blood Pressure Referrals: SIMONA LARA MD [Primary Care Provider] - Follow up as needed
[2017-08-07 11:59] VITALS: BP 170/99
== END 2017-08-07 11:57 | disposition home or self-care (01) ==
LOC: ER 10:12
DX: M54.42 Lumbago with sciatica, left side (principal); I12.0 Hypertensive chronic kidney disease with stage 5 chronic kidney disease or end stage renal disease; N18.6 End stage renal disease; Z96.642 Presence of left artificial hip joint; Z88.6 Allergy status to analgesic agent; Z86.14 Personal history of Methicillin resistant Staphylococcus aureus infection; Z90.49 Acquired absence of other specified parts of digestive tract; Z98.84 Bariatric surgery status
CPT/HCPCS: 99283; 96372; 73502; 72110; J1885; S0119; J1100

== ENCOUNTER 2018-05-21 07:02 | Emergency (ER) | payer SELFPAY ==
[2018-05-21] MEDS ORDERED: CLINDAMYCIN HCL 150 MG CAPSULE PO ONE ×2 (08:21→09:54)
[2018-05-21 09:45] VITALS: BP 134/86
--- NOTE | 2018-05-21 09:46 | ER Document Report ---
ED General - General Chief Complaint: Skin Problem Stated Complaint: POSSIBLE INFECTION/ARM AND BACK Time Seen by Provider: 05/21/18 07:57 TRAVEL OUTSIDE OF THE [place] IN LAST 30 DAYS: No - HPI Patient complains to provider of: Abscess Notes: Patient coming in for evaluation of the skin infection. Patient states has an abscess in his left arm and located in the back. Patient states she drainage from both of these. Patient denies any fevers chills nausea vomiting diarrhea. States history of MRSA in the past - Related Data Allergies/Adverse Reactions: morphine [Morphine] Allergy (Severe, Verified 05/21/18 07:29) Heart races, severe headache NSAIDS (Non-Steroidal Anti-Inflamma [Nsaids] Allergy (Severe, Verified 05/21/18 07:29) Severe diarrhea Past Medical History - Social History Smoking Status: Never Smoker Chew tobacco use (# tins/day): No Frequency of alcohol use: None Drug Abuse: None Family History: Arthritis, CAD, COPD, DM, Hyperlipidemia, Hypertension, Malignancy. denies: CVA, Thyroid Disfunction Patient has suicidal ideation: No Patient has homicidal ideation: No - Past Medical History Cardiac Medical History: Reports: Hx Hypertension Denies: Hx Atrial Fibrillation, Hx Congestive Heart Failure, Hx Heart Attack , Hx Hypercholesterolemia Pulmonary Medical History: Reports: Hx Asthma, Hx Bronchitis, Hx Sleep Apnea Denies: Hx COPD, Hx Pneumonia, Hx Tuberculosis Neurological Medical History: Reports: Hx Migraine. Denies: Hx Seizures Endocrine Medical History: Reports: Hx Diabetes Mellitus Type 2 - borderline controlled by diet Renal/ Medical History: Reports: Hx End Stage Renal Disease - Stage III, Hx Ovarian Cysts, Hx Pelvic Inflammatory Disease. Denies: Hx Kidney Stones, Hx Peritoneal Dialysis GI Medical History: Reports: Hx Diverticulitis, Hx Gastritis, Hx Gastroesophageal Reflux Disease, Hx Colonoscopy, Hx Endoscopy. 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 Denies: Hx Bowel Surgery, Hx Section, Hx Hysterectomy, Hx Mastectomy, Hx Tubal Ligation - Immunizations Hx Diphtheria, Pertussis, Tetanus Vaccination: Yes - 2014 Hx Pneumococcal Vaccination: 11/07/08 Review of Systems - Review of Systems Constitutional: No symptoms reported EENT: No symptoms reported Cardiovascular: No symptoms reported Respiratory: No symptoms reported Gastrointestinal: No symptoms reported Genitourinary: No symptoms reported Female Genitourinary: No symptoms reported Musculoskeletal: No symptoms reported Skin: Other - Abscess Hematologic/Lymphatic: No symptoms reported Neurological/Psychological: No symptoms reported -: Yes All other systems reviewed and negative Physical Exam - Vital signs Vitals: Temp Pulse Resp BP Pulse Ox 98.4 F 78 18 136/77 H 100 05/21/18 07:20 05/21/18 07:20 05/21/18 07:20 05/21/18 07:20 05/21/18 07:20 Interpretation: Normal - General General appearance: Appears well, Alert - HEENT Head: Normocephalic, Atraumatic Eyes: Normal Pupils: PERRL - Respiratory Respiratory status: No respiratory distress Chest status: Nontender Breath sounds: Normal Chest palpation: Normal - Cardiovascular Rhythm: Regular Heart sounds: Normal auscultation Murmur: No - Abdominal Inspection: Normal Distension: No distension Bowel sounds: Normal Tenderness: Nontender Organomegaly: No organomegaly - Back Back: Normal, Nontender - Extremities General upper extremity: Nontender, Normal color, Normal ROM, Normal temperature. No: Normal inspection - Underneath the left axilla patient has a large area of induration with abscess formation fluctuance with signs of early having some drainage. Patient has a smaller abscess that has a scab on this abscess is not indurated nor is there any fluctuance but there is a erythema possible infectious component that measures approximately 2 cm x 2 cm. General lower extremity: Normal inspection, Nontender, Normal color, Normal ROM , Normal temperature, Normal weight bearing. No: Cole's sign - Neurological Neuro grossly intact: Yes Cognition: Normal Orientation: AAOx4 [place] Coma Scale Eye Opening: Spontaneous Jose Coma Scale Verbal: Oriented [place] Coma Scale Motor: Obeys Commands [place] Coma Scale Total: 15 Speech: Normal Motor strength normal: LUE, RUE, LLE, RLE Sensory: Normal - Psychological Associated symptoms: Normal affect, Normal mood - Skin Skin Temperature: Warm Skin Moisture: Dry Skin Color: Normal Course - Re-evaluation Re-evalutation: 05/21/18 13:49 Bedside ultrasound confirmed no drainable abscess of the small area on the back. Patient does have a large fluid collection on bedside ultrasound underneath the left axilla. Patient underwent I&D. Copious amounts of yellow pus was expressed out packing was applied a noticeable skin defect was made to allow for drainage. Patient records that showed MRSA in the past sensitive to clindamycin will put the patient on clindamycin and wound culture was sent patient will be discharged home - Vital Signs Vital signs: Temp Pulse Resp BP Pulse Ox 98.6 F 74 18 134/86 H 98 05/21/18 09:44 05/21/18 09:44 05/21/18 07:20 05/21/18 09:44 05/21/18 09:44 Procedures - Incision and Drainage Left Arm Type: Simple Anesthetic type: 1% Lidocaine mL's of anesthetic: 3 Blade size: 11 I&D procedure: Betadine prep applied Incision Method: Incision made by scalpel Amount/type of drainage: Approximately 5 cc of pus Notes: 05/21/18 13:52 Wound was flushed to clear with approximately 30 cc of sterile saline packing was placed Discharge - Discharge Clinical Impression: abscess with cellulitis Condition: Good Disposition: HOME, SELF-CARE Admitting Provider: Pediatric Hospitalist Instructions: Abscess ([facility]), Clindamycin ([facility]), Post Incision and Drainage Additional Instructions: Your seen today and underwent incision and drainage of a large abscess underneath her left arm. Please make sure that she take antibiotics as prescribed. Return to ER symptoms worsen follow-up with your primary care physician. Take Tylenol Motrin for pain control the Buckner for severe pain. Prescriptions: Clindamycin HCl [Cleocin HCl] 150 mg PO Q6 #40 capsule Hydrocodone/Acetaminophen [Buckner 5-325 mg Tablet] 1 tab PO Q6 #10 tablet Forms: Return to Work
== END 2018-05-21 10:03 | disposition home or self-care (01) ==
LOC: ER 07:02
PROC: 0H9CXZZ Drainage of Left Upper Arm Skin, External Approach (ICD-10-PCS; principal; 2018-05-21)
DX: L02.414 Cutaneous abscess of left upper limb (principal); I10 Essential (primary) hypertension; L03.114 Cellulitis of left upper limb; J45.909 Unspecified asthma, uncomplicated; E11.9 Type 2 diabetes mellitus without complications
CPT/HCPCS: 87070; 87077; 87186; 87205; 99283

== ENCOUNTER 2018-07-08 08:56 | Inpatient (IN) | payer SELFPAY ==
[2018-07-08] MEDS ORDERED: ACETAMINOPHEN 325 MG TABLET PO ONE (09:40)
[2018-07-08] MEDS ORDERED: PIPERACILLIN/TAZOBACTAM 4.5 GM VIAL IV ONE (09:40)
[2018-07-08] MEDS ORDERED: VANCOMYCIN HCL INJ 1000 MG VIAL IV ONE (09:40)
[2018-07-08] MEDS ORDERED: LIDOCAINE 1%/EPINEPHRINE INJ 20 ML VIAL INJ ONE (09:41)
[2018-07-08] MEDS ORDERED: HYDROMORPHONE HCL INJ/PF 2 MG/ML AMPULE IV ONE (09:41)
[2018-07-08] MEDS ORDERED: ONDANSETRON HCL INJ/PF 4 MG/2 ML SDV IV ONE (09:54)
[2018-07-08] MEDS ORDERED: PIPERACILLIN SODIUM/TAZOBACTAM 4.5 GM in NORMAL SALINE 100 ML IV ONE (10:00)
[2018-07-08 10:31] LABS: INTERNATIONAL RATION (INR) 1.14; PROTHROMBIN TIME 15.2 SEC (11.4-15.4)
[2018-07-08 10:33] LABS: VENOUS BLOOD BASE EXCESS -16.2 mmol/L; VENOUS BLOOD HCO3 10.4 mmol/L (20-32); VENOUS BLOOD PCO2 27.5 mmHg (35-63); VENOUS BLOOD PH 7.2 (7.30-7.42)
[2018-07-08 11:15] LABS: HEMATOCRIT 31.8 % (36.0-47.0); HEMOGLOBIN 10.3 g/dL (12.0-15.5); MEAN CORPUSCULAR HEMOGLOBIN 28.9 pg (27.0-33.4); MEAN CORPUSCULAR HGB CONC 32.3 g/dL (32.0-36.0); MEAN CORPUSCULAR VOLUME 89 fl (80-97); PLATELET COUNT 922 10^3/uL (150-450); RED BLOOD COUNT 3.56 10^6/uL (3.72-5.28); RED CELL DISTRIBUTION WIDTH 16.2 % (11.5-14.0); WHITE BLOOD COUNT 20.2 10^3/uL (4.0-10.5)
--- NOTE | 2018-07-08 11:15 | ER Document Report ---
ED General - General Chief Complaint: Wound Infection Stated Complaint: GENERAL WEAKNESS Time Seen by Provider: 07/08/18 09:39 TRAVEL OUTSIDE OF THE [place] IN LAST 30 DAYS: No - HPI Patient complains to provider of: Abscess Onset: Other - This 53-year-old female presents for evaluation of an abscess which is developed over the last several days between the back shoulder blades with associated fevers malaise at home. She notes that her previously was treated for MRSA and she is concerned that this may represent MRSA. She has not had any abscesses in the past which required any drainage, she does have diabetes which is diet controlled primarily notes she is otherwise fairly healthy. Nothing is seemed to make the swelling any better, she has been placing heat on it to try and help with it and has been actively draining she and her have been trying to squeeze out the pus. On arrival EMS notes that her blood pressure was in the low 70s systolic they initiated treatment with fluids and she was also febrile and tachycardic. - Related Data Allergies/Adverse Reactions: NSAIDS (Non-Steroidal Anti-Inflamma [Nsaids] Allergy (Severe, Verified 05/21/18 07:29) Severe diarrhea Past Medical History - General Information source: Patient, Relative - Social History Smoking Status: Never Smoker Chew tobacco use (# tins/day): No Drug Abuse: None Family History: Arthritis, CAD, COPD, DM, Hyperlipidemia, Hypertension, Malignancy. denies: CVA, Thyroid Disfunction Patient has suicidal ideation: No Patient has homicidal ideation: No - Past Medical History Cardiac Medical History: Reports: Hx Hypertension Denies: Hx Atrial Fibrillation, Hx Congestive Heart Failure, Hx Heart Attack , Hx Hypercholesterolemia Pulmonary Medical History: Reports: Hx Asthma, Hx Bronchitis, Hx Sleep Apnea Denies: Hx COPD, Hx Pneumonia, Hx Tuberculosis Neurological Medical History: Reports: Hx Migraine. Denies: Hx Seizures Endocrine Medical History: Reports: Hx Diabetes Mellitus Type 2 - borderline controlled by diet Renal/ Medical History: Reports: Hx End Stage Renal Disease - Stage III, Hx Ovarian Cysts, Hx Pelvic Inflammatory Disease. Denies: Hx Kidney Stones, Hx Peritoneal Dialysis GI Medical History: Reports: Hx Diverticulitis, Hx Gastritis, Hx Gastroesophageal Reflux Disease, Hx Colonoscopy, Hx Endoscopy. 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 Denies: Hx Bowel Surgery, Hx Section, Hx Hysterectomy, Hx Mastectomy, Hx Tubal Ligation - Immunizations Hx Diphtheria, Pertussis, Tetanus Vaccination: Yes - 2014 Hx Pneumococcal Vaccination: 11/07/08 Review of Systems - Review of Systems -: Yes All other systems reviewed and negative Physical Exam - Vital signs Vitals: Temp Resp BP Pulse Ox 97.2 F 13 111/77 96 07/08/18 09:06 07/08/18 09:06 07/08/18 09:06 07/08/18 09:06 - General General appearance: Anxious In distress: Mild - HEENT Head: Normocephalic Eyes: Normal Conjunctiva: Normal Cornea: Normal Extraocular movements intact: Yes Eyelashes: Normal Pupils: PERRL - Respiratory Respiratory status: No respiratory distress Chest status: Nontender Breath sounds: Normal Chest palpation: Normal - Cardiovascular Rhythm: Regular Heart sounds: Normal auscultation Murmur: No - Abdominal Inspection: Normal Distension: No distension Tenderness: Nontender - Back Back: Other - There is a large erythematous fluctuant region primarily on the left side of the back overlying the scapula in addition it extends medially to the level of the midline with active drainage from 2 purulent pockets - Extremities General upper extremity: Normal inspection, Normal strength General lower extremity: Normal inspection, Normal strength - Neurological Neuro grossly intact: Yes Cognition: Normal Orientation: AAOx4 [place] Coma Scale Eye Opening: Spontaneous [place] Coma Scale Verbal: Oriented [place] Coma Scale Motor: Obeys Commands [place] Coma Scale Total: 15 Speech: Normal Cranial nerves: Normal - Psychological Associated symptoms: Normal affect Course - Re-evaluation Re-evalutation: 07/08/18 16:46 This 53-year-old woman presents for evaluation of abscess on the back, she has been developing this over the last several days until her family finally was concerned and called for an ambulance. She notes that it was worsening and she and her have been draining until she began to feel so ill and fatigued that they had to call for help. On examination she does have an obvious large abscess in between the shoulder blades, initially was contacted by EMS in relation of this patient which time her blood pressure was diminished in the 70 systolic range with some resultant tachycardia. Initiated fluid resuscitation, patient received 2 L of normal saline, initiated broad-spectrum antibiotic treatment including vancomycin as well as Zosyn for this patient. On examination because there is an active large abscess in the posterior back will I&D for source control. Following incision and drainage had copious return of purulent material, debrided region with necrotic fatty tissue. There was a reasonable amount of undermining, there was appreciable D loculating and packing with iodoform gauze. At this time the patient demonstrates a marked leukocytosis however her lactic acid is within a reasonable normal range. We will continue to monitor will defer administration of vasopressors at this time as she has responded well to fluids. Current plan will be for this patient undergo admission to the hospital for continued monitoring and IV antibiotics as well as wound checks. Deferred surgical incision and drainage as this wound was well deloculated and drained at the bedside. - Vital Signs Vital signs: Temp Pulse Resp BP Pulse Ox 97.6 F 97 17 116/75 98 07/08/18 15:38 07/08/18 15:38 07/08/18 15:38 07/08/18 15:38 07/08/18 15:38 - Laboratory Result Diagrams: 07/08/18 09:05 07/08/18 11:42 Laboratory results interpreted by me: 07/08/18 07/08/18 07/08/18 09:05 09:05 09:05 WBC 20.2 H RBC 3.56 L Hgb 10.3 L Hct 31.8 L RDW 16.2 H Plt Count 922 H Seg Neuts % (Manual) 90 H Lymphocytes % (Manual) 8 L Monocytes % (Manual) 2 L Abs Neuts (Manual) 18.2 H VBG pH 7.20 L VBG pCO2 27.5 L VBG HCO3 10.4 L Sodium Potassium Carbon Dioxide Anion Gap BUN Creatinine Est GFR ( Amer) Est GFR (Non-Af Amer) Glucose Hemoglobin A1c % 7.3 H Direct Bilirubin Alkaline Phosphatase Albumin 07/08/18 11:42 WBC RBC Hgb Hct RDW Plt Count Seg Neuts % (Manual) Lymphocytes % (Manual) Monocytes % (Manual) Abs Neuts (Manual) VBG pH VBG pCO2 VBG HCO3 Sodium 135.6 L Potassium 5.1 H Carbon Dioxide 8 L* Anion Gap 21 H BUN 41 H Creatinine 2.09 H Est GFR ( Amer) 30 L Est GFR (Non-Af Amer) 25 L Glucose 123 H Hemoglobin A1c % Direct Bilirubin 0.7 H Alkaline Phosphatase 157 H Albumin 3.1 L Procedures - Incision and Drainage Back Type: Complex Anesthetic type: 1% Lidocaine w/epi mL's of anesthetic: 16 Blade size: 11 I&D procedure: Betadine prep applied, Iodoform packing placed Incision Method: Incision made by scalpel Amount/type of drainage: copious purulent Notes: 07/08/18 11:15 100cc Discharge - Discharge Clinical Impression: Abscess, MRSA (methicillin resistant Staphylococcus aureus) Fever Qualifiers: Fever type: unspecified Qualified Code(s): R50.9 - Fever, unspecified Condition: Stable Disposition: ADMITTED INPATIENT Admitting Provider: Hospitalist
[2018-07-08 11:17] LABS: ABSOLUTE LYMPHOCYTES# (MANUAL) 1.6 10^3/uL (0.5-4.7); ABSOLUTE MONOCYTES # (MANUAL) 0.4 10^3/uL (0.1-1.4); ABSOLUTE NEUTROPHILS# (MANUAL) 18.2 10^3/uL (1.7-8.2); BASOPHILS % (MANUAL) 0 % (0-2); EOSINOPHILS % (MANUAL) 0 % (0-6); LYMPHOCYTES % (MANUAL) 8 % (13-45); MONOCYTES % (MANUAL) 2 % (3-13); SEGMENTED NEUTROPHILS % (MAN) 90 % (42-78); TOTAL CELLS COUNTED 100
[2018-07-08 11:19] LABS: ANISOCYTOSIS 1+; PLATELET COMMENT INCREASED; TOXIC GRANULATION 1+
[2018-07-08 12:14] LABS: ALANINE AMINOTRANSFERASE 14 U/L (9-52); ALBUMIN 3.1 g/dL (3.5-5.0); ALKALINE PHOSPHATASE 157 U/L (38-126); ASPARTATE AMINO TRANSFERASE 21 U/L (14-36); BILIRUBIN,DIRECT 0.7 mg/dL (0.0-0.4); BILIRUBIN,TOTAL 0.7 mg/dL (0.2-1.3); BLOOD UREA NITROGEN 41 mg/dL (7-20); CALCIUM 8.4 mg/dL (8.4-10.2); GLUCOSE 123 mg/dL (75-110); POTASSIUM 5.1 mmol/L (3.6-5.0); TOTAL PROTEIN 6.4 g/dL (6.3-8.2)
[2018-07-08 12:19] LABS: CHLORIDE 107 mmol/L (98-107); SODIUM 135.6 mmol/L (137-145)
[2018-07-08 12:27] LABS: ANION GAP 21 (5-19)
[2018-07-08 12:29] LABS: CARBON DIOXIDE 8 mmol/L (22-30)
[2018-07-08] MEDS ORDERED: VANCOMYCIN HCL 0 MG in DEXTROSE 5%-WATER 250 ML IV NR (12:30)
--- NOTE | 2018-07-08 13:44 | RADIOLOGY REPORT (SQ) ---
EXAM DESCRIPTION: CHEST SINGLE VIEW COMPLETED DATE/TIME: 07/08/2018 1:05 pm REASON FOR STUDY: cough COMPARISON: Chest film 07/30/2017, 04/20/2012, 07/12/2007 EXAM PARAMETERS: NUMBER OF VIEWS: One view. TECHNIQUE: Single frontal radiographic view of the chest acquired. RADIATION DOSE: NA LIMITATIONS: Obese patient, portable technique. FINDINGS: LUNGS AND PLEURA: No opacities, masses or pneumothorax. No pleural effusion. MEDIASTINUM AND HILAR STRUCTURES: No masses. Contour normal. HEART AND VASCULAR STRUCTURES: Heart normal in size. Normal vasculature. BONES: No acute findings. HARDWARE: None in the chest. OTHER: Small amount of left supraclavicular soft tissue air of uncertain clinical significance. IMPRESSION: No acute infiltrates or pleural effusion. Left supraclavicular soft tissue air of uncertain clinical significance. TECHNICAL DOCUMENTATION: JOB ID: [id number] [employer]- All Rights Reserved Reading location - IP/workstation name: [email or web address]
[2018-07-08] MEDS: HEPARIN SOD (PORCINE) 5,000 UNIT/ML 1 ML SYRINGE SUBCUT SCH ×2 (15:05→21:17)
[2018-07-08] MEDS: VANCOMYCIN HCL 1,000 MG in DEXTROSE 5%-WATER 250 ML IV SCH (15:06)
[2018-07-08] MEDS: OXYCODONE HCL IR 5 MG TABLET PO PRN ×2 (15:07→21:16)
[2018-07-08] MEDS: NORMAL SALINE 1000 ML 1,000 ML IV PRN ×2 (15:09→21:23)
[2018-07-08] MEDS ORDERED: DEXTROSE 40% GEL 15 GM TUBE PO PRN (15:43)
[2018-07-08] MEDS ORDERED: DEXTROSE 50%-WATER SYRINGE 12.5 GM/25 ML DOSE IV PRN (15:43)
[2018-07-08] MEDS ORDERED: DEXTROSE 50%-WATER SYRINGE 25 GM/50 ML DOSE IV PRN (15:43)
[2018-07-08] MEDS ORDERED: DEXTROSE 40% GEL 15 GM TUBE X 2 PO PRN (15:43)
[2018-07-08] MEDS ORDERED: GLUCAGON,HUMAN RECOMB 1 MG INJ IM PRN (15:43)
[2018-07-08] MEDS ORDERED: ALBUTEROL SULFATE HFA (90 MCG/PUFF) 200 PUFF/8.5 GM MDI IH PRN (16:02)
[2018-07-08] MEDS ORDERED: TIZANIDINE HCL 4 MG TABLET PO PRN (16:02)
--- NOTE | 2018-07-08 16:24 | PDOC H&P ---
History of Present Illness Admission Date/PCP: SIMONA LARA MD Patient complains of: fever History of Present Illness: REBECCA BRITT is a 53 year old female with a past medical history of diet- controlled diabetes mellitus, history of MRSA colonization, hypertension, asthma , osteoarthritis, depression, GERD and CKD 2 who presented with fever and chills. Patient says that 10 days ago, she initially had 2 pimple-like lesions on the mid upper back and then over the next few days the started to increase in size and started to coalesce to form a big lump. She says the lesion started becoming tender and started oozing purulent discharge. Over the past week, she started having fever and chills. She says that she also started having generalized weakness and was getting easily winded. She says she had chronic on and off shortness of breath and this has also been worsening in the past week. She says her had a recent bad MRSA infection on the thigh muscle. She denies any other sick contacts. Denies recent travel. In the ER, patient was noted to have a large abscess of the left mid upper back. This was incised and drained by the ER physician. Past Medical History Cardiac Medical History: Reports: Hypertension Denies: Atrial Fibrillation, Congestive Heart Failure, Myocardial Infarction , Hyperlipidema Pulmonary Medical History: Reports: Asthma, Bronchitis, Sleep Apnea Denies: Chronic Obstructive Pulmonary Disease (COPD), Pneumonia, Tuberculosis Neurological Medical History: Reports: Migraine Denies: Seizures Endocrine Medical History: Reports: Diabetes Mellitus Type 2 - borderline controlled by diet Renal/ Medical History: Reports: End Stage Renal Disease - Stage III GI Medical History: Reports: Diverticulitis, Gastroesophageal Reflux Disease Denies: Hiatal Hernia Musculoskeltal Medical History: Reports: Arthritis - 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, Fibromyalgia Skin Medical History: Reports: Eczema Psychiatric Medical History: Reports: Depression Denies: Bipolar Disorder Hematology: Reports: Anemia Denies: Hemophilia, Sickle Cell Disease Infectious Medical History: Reports: Methicillin-Resistant Staph Aureus Past Surgical History Past Surgical History: Reports: Appendectomy, Cholecystectomy, Gastric Bypass Surgery, Herniorrhaphy - umbilical, Orthopedic Surgery - Left hip replaced., Tonsillectomy Denies: Amputation, Section, Hysterectomy, Mastectomy, Tubal Ligation Social History Smoking Status: Never Smoker Frequency of Alcohol Use: None Hx Recreational Drug Use: No Hx Prescription Drug Abuse: No Family History Family History: Arthritis, CAD - dad from [place] at 40 yrs old, COPD, DM, Hyperlipidemia, Hypertension, Malignancy. denies: CVA, Thyroid Disfunction Parental Family History Reviewed: Yes - Premature CAD in father who from [place] at 41 years old Children Family History Reviewed: Yes Sibling(s) Family History Reviewed.: Yes Medication/Allergy Home Medications: Albuterol Sulfate [Proair Hfa Inhalation Aerosol 8.5 gm Mdi] 1 puff IH Q6HP PRN 07/08/18 Aspirin [Aspirin EC] 81 mg PO DAILY 07/08/18 Duloxetine HCl [Cymbalta] 60 mg PO Q12 07/08/18 Estazolam [Prosom] 2 mg PO QHS MDD LAST FILLED 04-19-18 07/08/18 Metoprolol Tartrate [Lopressor 100 mg Tablet] 100 mg PO Q12 07/08/18 Omeprazole 20 mg PO DAILY 07/08/18 Tizanidine HCl [Zanaflex 4 Mg Tablet] 4 mg PO Q8HP PRN 07/08/18 Allergies/Adverse Reactions: NSAIDS (Non-Steroidal Anti-Inflamma [Nsaids] Allergy (Severe, Verified 05/21/18 07:29) Severe diarrhea Review of Systems All systems: reviewed and no additional remarkable complaints except as stated - As mentioned in HPI Physical Exam Vital Signs: Temp Pulse Resp BP Pulse Ox 97.2 F 21 H 122/77 100 07/08/18 09:06 07/08/18 09:16 07/08/18 09:16 07/08/18 09:16 Intake & Output 07/07/18 07/08/18 07/09/18 06:59 06:59 06:59 Intake Total 100 Balance 100 General appearance: PRESENT: no acute distress, well-developed, well-nourished Head exam: PRESENT: atraumatic, normocephalic Eye exam: PRESENT: conjunctiva pink, EOMI, PERRLA. ABSENT: scleral icterus Ear exam: PRESENT: normal external ear exam Neck exam: ABSENT: carotid bruit, JVD, lymphadenopathy, thyromegaly Respiratory exam: PRESENT: clear to auscultation so. ABSENT: rales, rhonchi, wheezes Pulses: PRESENT: normal dorsalis pedis pul GI/Abdominal exam: PRESENT: normal bowel sounds, soft. ABSENT: distended, guarding, mass, organolmegaly, rebound, tenderness Rectal exam: PRESENT: deferred Musculoskeletal exam: PRESENT: other - Noted recently drained and incised mass on the left upper back with minimal bloody and lightly yellowish discharge. Neurological exam: PRESENT: alert, awake, oriented to person, oriented to place , oriented to time, oriented to situation, CN II-XII grossly intact. ABSENT: motor sensory deficit Results Laboratory Results: 07/08/18 09:05 07/08/18 07/08/18 07/08/18 09:05 09:05 09:05 WBC 20.2 H RBC 3.56 L Hgb 10.3 L Hct 31.8 L MCV 89 MCH 28.9 MCHC 32.3 RDW 16.2 H Plt Count 922 H Seg Neutrophils % Not Reportable Lymphocytes % Not Reportable Monocytes % Not Reportable Eosinophils % Not Reportable Basophils % Not Reportable Absolute Neutrophils Not Reportable Absolute Lymphocytes Not Reportable Absolute Monocytes Not Reportable Absolute Eosinophils Not Reportable Absolute Basophils Not Reportable VBG pH VBG pCO2 VBG HCO3 VBG Base Excess Sodium Cancelled Potassium Cancelled Chloride Cancelled Carbon Dioxide Cancelled Anion Gap Cancelled BUN Cancelled Creatinine Cancelled Est GFR ( Amer) Cancelled Est GFR (Non-Af Amer) Cancelled Glucose Cancelled Lactic Acid 1.3 Calcium Cancelled Total Bilirubin Cancelled AST Cancelled ALT Cancelled Alkaline Phosphatase Cancelled Total Protein Cancelled Albumin Cancelled 07/08/18 09:05 WBC RBC Hgb Hct MCV MCH MCHC RDW Plt Count Seg Neutrophils % Lymphocytes % Monocytes % Eosinophils % Basophils % Absolute Neutrophils Absolute Lymphocytes Absolute Monocytes Absolute Eosinophils Absolute Basophils VBG pH 7.20 L VBG pCO2 27.5 L VBG HCO3 10.4 L VBG Base Excess -16.2 Sodium Potassium Chloride Carbon Dioxide Anion Gap BUN Creatinine Est GFR ( Amer) Est GFR (Non-Af Amer) Glucose Lactic Acid Calcium Total Bilirubin AST ALT Alkaline Phosphatase Total Protein Albumin Assessment & Plan - Diagnosis (1) Severe sepsis Is this a current diagnosis for this admission?: Yes Plan: Patient reportedly had low systolic blood pressure in the 80s systolic in route to the ER. Upon presentation in the ED, patient's blood pressure was as low as 90 over 60s. She was initially slightly tachypneic at 23. She also presented with significant leukocytosis with a WBC count of 20,000. Sepsis is secondary to left upper back abscess. Continue broad-spectrum IV antibiotics at this time. Will await final results of cultures. Patient has received 2 L of fluid bolus in the ER. Continue IV fluids. (2) Abscess Is this a current diagnosis for this admission?: Yes Plan: Left upper back abscess was incised and drained in the ER. Continue daily dressing as recommended by surgery. (3) MRSA (methicillin resistant Staphylococcus aureus) Is this a current diagnosis for this admission?: Yes Plan: Patient says that she has a history of MRSA infection of the skin. She says that all her family members had to have MRSA. Her was recently discharged from [facility] for MRSA related infection of the thigh and reportedly had a recent debridement of the thigh. We will do an MRSA surveillance patient will likely need decolonization. (4) High anion gap metabolic acidosis Is this a current diagnosis for this admission?: Yes Plan: This is likely secondary to sepsis and acute renal failure. Continue IV fluids. Will continue to monitor renal functions. (5) Acute renal failure Is this a current diagnosis for this admission?: Yes Plan: Patient's creatinine is elevated at 2.09. She is obese in the 1.3-1.4. This is possibly secondary to septic ATN. Continue IV fluids and antibiotics for sepsis. Recheck BMP tomorrow. (6) Diabetes mellitus Qualifiers: Diabetes mellitus type: type 2 Plan: Patient does not take medications for diabetes has been controlled with diet. Will recheck hemoglobin A1c. Continue to monitor blood sugars. We will do sliding scale at the moment. (7) Chronic kidney disease, stage 2, mildly decreased GFR Is this a current diagnosis for this admission?: Yes Plan: Patient has AKA on top of CKD 2. Continue IV fluids. Avoid nephrotoxic agents. Vancomycin being dosed by pharmacy. (8) Thrombocytopenia Is this a current diagnosis for this admission?: Yes Plan: Acute thrombocytopenia is likely reactive secondary to severe sepsis. - Time Time Spent: 30 to 50 Minutes
--- NOTE | 2018-07-08 17:31 | EKG REPORT ---
SEVERITY:- ABNORMAL ECG - SINUS RHYTHM PROBABLE INFERIOR INFARCT, AGE INDETERMINATE : Confirmed by: Cb Talbot MD 08-Jul-2018 17:31:28
[2018-07-08 17:58] LABS: BLOOD UREA NITROGEN 44 mg/dL (7-20); CALCIUM 8.8 mg/dL (8.4-10.2); CHLORIDE 106 mmol/L (98-107); GLUCOSE 120 mg/dL (75-110); POTASSIUM 5.4 mmol/L (3.6-5.0); SODIUM 134.4 mmol/L (137-145)
[2018-07-08 18:04] LABS: ANION GAP 18 (5-19)
[2018-07-08 18:08] LABS: CARBON DIOXIDE 10 mmol/L (22-30)
[2018-07-08] MEDS ORDERED: NORMAL SALINE 1000 ML 1,000 ML IV ONE (18:30)
[2018-07-08] MEDS: ACETAMINOPHEN 325 MG TABLET PO PRN (18:30)
[2018-07-08] MEDS: PIPERACILLIN SODIUM/TAZOBACTAM 3.375 GM in NORMAL SALINE 100 ML IV SCH ×2 (18:30→23:32)
[2018-07-08] MEDS ORDERED: IPRATROPIUM/ALBUTEROL 0.5-2.5 MG/3 ML AMPUL NEB PRN (19:08)
[2018-07-08 20:07] LABS: APPEARANCE,URINE CLOUDY; BILIRUBIN,URINE MODERATE (NEGATIVE); COLOR,URINE YELLOW; GLUCOSE, URINE NEGATIVE (NEGATIVE); KETONES,URINE TRACE mg/dL (NEGATIVE); LEUKOCYTE ESTERASE,URINE NEGATIVE (NEGATIVE); NITRITE,URINE NEGATIVE (NEGATIVE); PROTEIN,URINE 30 mg/dL (NEGATIVE); URINE SPECIFIC GRAVITY 1.027; UROBILINOGEN,URINE NEGATIVE mg/dL (<2.0)
[2018-07-08 20:11] LABS: URINE CREATININE 129.1 mg/dL (15-278)
--- NOTE | 2018-07-08 20:52 | RADIOLOGY REPORT (SQ) ---
EXAM DESCRIPTION: U/S RETROPERITON LTD COMPLETED DATE/TIME: 07/08/2018 6:57 pm REASON FOR STUDY: Assess rising creatinine level COMPARISON: 04/06/2016 bilateral renal ultrasound TECHNIQUE: Dynamic and static grayscale images acquired of the kidneys and bladder and recorded on P ACS. Additional selected color Doppler and spectral images recorded. LIMITATIONS: Morbid obesity. Very limited visualization of the kidneys FINDINGS: Morbid obesity. Very limited visualization of the kidneys. No gross hydronephrosis. Bladder not well seen. IMPRESSION: Morbid obesity. Very limited visualization of the kidneys with ultrasound. No gross hy dronephrosis TECHNICAL DOCUMENTATION: JOB ID: [id number] [employer]- All Rights Reserved Reading location - IP/workstation name: [email or web address]
[2018-07-08] MEDS: DULOXETINE HCL 30 MG CAPSULE.DR PO SCH (21:17)
[2018-07-08] MEDS: METOPROLOL TARTRATE 100 MG TABLET PO SCH (21:35)
[2018-07-08] MEDS: HYDROMORPHONE HCL INJ/PF 2 MG/ML AMPULE IV PRN (23:36)
[2018-07-09] MEDS: HEPARIN SOD (PORCINE) 5,000 UNIT/ML 1 ML SYRINGE SUBCUT SCH ×3 (05:24→21:27)
[2018-07-09] MEDS: LANSOPRAZOLE 15 MG TAB.RAP.DR PO SCH (05:25)
[2018-07-09] MEDS: PIPERACILLIN SODIUM/TAZOBACTAM 3.375 GM in NORMAL SALINE 100 ML IV SCH ×3 (05:25→18:04)
[2018-07-09] MEDS: OXYCODONE HCL IR 5 MG TABLET PO PRN (05:29)
[2018-07-09] MEDS: ACETAMINOPHEN 325 MG TABLET PO PRN (05:30)
[2018-07-09 06:48] LABS: ABSOLUTE BASOPHILS # (AUTO) 0.1 10^3/uL (0.0-0.2); ABSOLUTE EOSINOPHILS # (AUTO) 0.1 10^3/uL (0.0-0.6); ABSOLUTE LYMPHOCYTES (AUTO) 1.3 10^3/uL (0.5-4.7); ABSOLUTE MONOCYTES (AUTO) 0.8 10^3/uL (0.1-1.4); ABSOLUTE NEUT (AUTO) 8.9 10^3/uL (1.7-8.2); BASOPHILS % (AUTO) 0.8 % (0-2); EOSINOPHILS % (AUTO) 1.3 % (0-6); HEMATOCRIT 27.2 % (36.0-47.0); HEMOGLOBIN 8.7 g/dL (12.0-15.5); LYMPHOCYTES % (AUTO) 11.7 % (13-45); MEAN CORPUSCULAR HEMOGLOBIN 28.3 pg (27.0-33.4); MEAN CORPUSCULAR HGB CONC 32.1 g/dL (32.0-36.0); MEAN CORPUSCULAR VOLUME 88 fl (80-97); PLATELET COUNT 619 10^3/uL (150-450); RED BLOOD COUNT 3.08 10^6/uL (3.72-5.28); RED CELL DISTRIBUTION WIDTH 15.6 % (11.5-14.0); SEGMENTED NEUTROPHILS % (AUTO) 79.2 % (42-78); TOTAL CELLS COUNTED % (AUTO) 100 %; WHITE BLOOD COUNT 11.3 10^3/uL (4.0-10.5)
[2018-07-09 06:55] LABS: ANION GAP 16 (5-19); BLOOD UREA NITROGEN 42 mg/dL (7-20); CALCIUM 9.4 mg/dL (8.4-10.2); CARBON DIOXIDE 11 mmol/L (22-30); CHLORIDE 109 mmol/L (98-107); GLUCOSE 121 mg/dL (75-110); POTASSIUM 4.8 mmol/L (3.6-5.0); SODIUM 136.1 mmol/L (137-145)
[2018-07-09] MEDS: NORMAL SALINE 1000 ML 1,000 ML IV PRN ×2 (08:30→18:57)
--- NOTE | 2018-07-09 09:38 | EKG REPORT ---
SEVERITY:- NORMAL ECG - SINUS RHYTHM : Confirmed by: Cb Talbot MD 09-Jul-2018 09:38:04
[2018-07-09] MEDS: METOPROLOL TARTRATE 100 MG TABLET PO SCH (09:51)
[2018-07-09] MEDS: DULOXETINE HCL 30 MG CAPSULE.DR PO SCH ×2 (09:51→21:25)
[2018-07-09] MEDS: ASPIRIN 81 MG TABLET, ENT COATED PO SCH (09:51)
[2018-07-09] MEDS: HYDROMORPHONE HCL INJ/PF 2 MG/ML AMPULE IV PRN ×2 (11:20→16:56)
--- NOTE | 2018-07-09 13:07 | RADIOLOGY REPORT (SQ) ---
EXAM DESCRIPTION: CT ABD/PELVIS NO ORAL OR IV COMPLETED DATE/TIME: 07/09/2018 11:59 am REASON FOR STUDY: Assess for possible kidney obstruction COMPARISON: CT abdomen pelvis 07/18/2017, 05/27/2014 TECHNIQUE: CT scan of the abdomen and pelvis performed without intravenous or oral contrast. Images reviewed with lung, soft tissue, and bone windows. Reconstructed coronal and sagittal MPR images revi ewed. All images stored on PACS. All CT scanners at this facility use dose modulation, iterative reconstruction, and/or weight based d osing when appropriate to reduce radiation dose to as low as reasonably achievable (ALARA). [facility]: Dose Right [facility]: CareDose [facility]: Dose Right [facility]: Teradose 4D [facility]: Smart [employer] RADIATION DOSE: CT Rad equipment meets quality standard of care and radiation dose reduction techniq ues were employed. CTDIvol: 21.1 mGy. DLP: 1148 mGy-cm.mGy. LIMITATIONS: None. FINDINGS: LOWER CHEST: No significant findings. No nodules or infiltrates. NON-CONTRASTED LIVER, SPLEEN, ADRENALS: Evaluation limited by lack of IV contrast. No identified sign ificant masses. PANCREAS: No masses. No peripancreatic inflammatory changes. GALLBLADDER: Surgically absent RIGHT KIDNEY AND URETER: No suspicious masses. Assessment limited by lack of IV contrast. No signif icant calcifications. No hydronephrosis or hydroureter. LEFT KIDNEY AND URETER: No suspicious masses. Assessment limited by lack of IV contrast. No signifi cant calcifications. No hydronephrosis or hydroureter. AORTA AND RETROPERITONEUM: No aneurysm. No retroperitoneal masses or adenopathy. BOWEL AND PERITONEAL CAVITY: Post gastric bypass. No bowel obstruction. No free intraperitoneal air or fluid APPENDIX: Surgically absent PELVIS, BLADDER, AND ABDOMINAL WALL:No abnormal masses. No free fluid. Bladder normal. IUD in the ut erus. There are 2 ventral hernias containing fat along the umbilical and infraumbilical midline abdominal w all. The umbilical hernia is 2.2 cm in greatest diameter. Infraumbilical hernia is 2.3 cm in diamet er. BONES: Degenerative changes lumbar spine, left total hip replacement OTHER: No other significant finding. IMPRESSION: NO SIGNIFICANT OR ACUTE PROCESS IN THE ABDOMEN OR PELVIS. COMMENT: Quality ID # [id number]: Final reports with documentation of one or more dose reduction techniques (e.g., Automated exposure control, adjustment of the mA and/or kV according to patient size, use of iterative reconstruction technique) TECHNICAL DOCUMENTATION: JOB ID: [id number] [employer]- All Rights Reserved Reading location - IP/workstation name: [email or web address]
[2018-07-09] MEDS: VANCOMYCIN HCL 1,000 MG in DEXTROSE 5%-WATER 250 ML IV SCH (14:05)
[2018-07-09] MEDS ORDERED: FENTANYL CITRATE INJ/PF 100 MCG/2 ML AMPUL ONE (14:37)
[2018-07-09] MEDS ORDERED: MIDAZOLAM 2 MG/2 ML INJ ONE (14:38)
[2018-07-09] MEDS ORDERED: ONDANSETRON HCL INJ/PF 4 MG/2 ML SDV ONE (14:38)
[2018-07-09] MEDS ORDERED: PROPOFOL INJ 200 MG/20 ML VIAL IV ONE (14:38)
[2018-07-09] MEDS ORDERED: MORPHINE SULFATE 10 MG/ML INJ ONE (14:38)
[2018-07-09] MEDS: BUPIVACAINE HCL 0.5 % INJ/PF 30 ML SDV ONE ×2 (14:53→15:07)
[2018-07-09] MEDS ORDERED: DIPHENHYDRAMINE HCL 50 MG/ML VIAL IV PRN (15:12)
[2018-07-09] MEDS ORDERED: FENTANYL CITRATE INJ/PF 100 MCG/2 ML AMPUL IV PRN ×3 (15:12)
[2018-07-09] MEDS ORDERED: PROMETHAZINE HCL INJ 25 MG/1 ML VIAL IV PRN ×2 (15:12)
--- NOTE | 2018-07-09 15:40 | Operative Report ---
Operative Report DATE OF SURGERY: 07/09/18 PREOPERATIVE DIAGNOSIS: Large subcutaneous back abscess, status post limited I&D POSTOPERATIVE DIAGNOSIS: Same with large undermined cavity abscess OPERATION: Excisional debridement of skin subcutaneous tissue, fibrotic tissue from upper back abscess SURGEON: ARMANI MERINO ANESTHESIA: LMAC TISSUE REMOVED OR ALTERED: Clot, skin, infected subcutaneous tissue COMPLICATIONS: None ESTIMATED BLOOD LOSS: 1 50 cc INTRAOPERATIVE FINDINGS: See below PROCEDURE: The patient was taken from the holding area to the main operating room where LMAC anesthesia was induced. She was placed in the right lateral decubitus position. The existing mid upper back incision and drainage hole was exposed, and the surrounding tissue prepped and draped in sterile fashion Surgical plan and surgical timeout was conducted The skin at the site of the debridement hole was Tiara 1% plain lidocaine. The 2 x 2 centimeter debridement hole was excised to approximately 3 x 5 cm. We used this as an entry point to excisional debridement subcutaneous tissue and necrotic fat infected fat, and fibrotic tissue all underlying the differential skin flap. This debridement required mechanical manual breakup of loculations, suction irrigation, and electrocautery. At the conclusion of the debridement there was a massive subcutaneous tissue about 12 x 14 cm. We irrigated the wound copiously with saline, and cauterize bleeders as encountered. I did not believe additional counterincisions or debridement was necessary. The wound was packed with 1 Betadine soaked Kerlix roll. 4 x 4's applied and tape. Patient tolerated procedure well. She was taken to recovery room stable condition.
[2018-07-09] MEDS ORDERED: NORMAL SALINE 1000 ML 1,000 ML IV PRN (16:48)
--- NOTE | 2018-07-09 16:55 | PDOC PROGRESS REPORT ---
Subjective Progress Note for:: 07/09/18 Subjective:: This is a 53-year-old female who was admitted for severe sepsis secondary to a large back abscess. Patient says that she is still having some back pain. Per RN, patient had significant slightly bloody and purulent discharge from the wound overnight. Provider was paged by RN to check a recent discharge and patient did have significant purulent material coming out of the incised wound. No recurrence of fever chills. Consulted surgery. Patient is in OR for possible redebridement. Reason For Visit: SEVERE SEPSIS,BACK ABSCESS Physical Exam Vital Signs: Temp Pulse Resp BP Pulse Ox 97.3 F 90 17 116/63 100 07/09/18 14:15 07/09/18 14:15 07/09/18 14:15 07/09/18 14:15 07/09/18 14:15 Intake & Output 07/08/18 07/09/18 07/10/18 06:59 06:59 06:59 Intake Total 2030 2100 Output Total 0 1000 Balance 2030 1100 Weight 290 lb 12.635 oz General appearance: PRESENT: no acute distress, well-developed, well-nourished Head exam: PRESENT: atraumatic, normocephalic Eye exam: PRESENT: conjunctiva pink, EOMI, PERRLA. ABSENT: scleral icterus Ear exam: PRESENT: normal external ear exam Mouth exam: PRESENT: moist, tongue midline Neck exam: ABSENT: carotid bruit, JVD, lymphadenopathy, thyromegaly Respiratory exam: PRESENT: clear to auscultation so. ABSENT: rales, rhonchi, wheezes Cardiovascular exam: PRESENT: RRR. ABSENT: diastolic murmur, rubs, systolic murmur Pulses: PRESENT: normal dorsalis pedis pul GI/Abdominal exam: PRESENT: normal bowel sounds, soft. ABSENT: distended, guarding, mass, organolmegaly, rebound, tenderness Rectal exam: PRESENT: deferred Extremities exam: PRESENT: other - Noted recently drained and incised mass on the left upper back with moderate yellowish, non-bloody discharge. Musculoskeletal exam: PRESENT: ambulatory Neurological exam: PRESENT: alert, awake, oriented to person, oriented to place , oriented to time, oriented to situation, CN II-XII grossly intact. ABSENT: motor sensory deficit Results Laboratory Results: 07/09/18 06:27 07/09/18 06:27 07/08/18 07/08/18 07/09/18 17:40 19:28 06:27 WBC 11.3 H RBC 3.08 L Hgb 8.7 L Hct 27.2 L MCV 88 MCH 28.3 MCHC 32.1 RDW 15.6 H Plt Count 619 H Seg Neutrophils % 79.2 H Lymphocytes % 11.7 L Monocytes % 7.0 Eosinophils % 1.3 Basophils % 0.8 Absolute Neutrophils 8.9 H Absolute Lymphocytes 1.3 Absolute Monocytes 0.8 Absolute Eosinophils 0.1 Absolute Basophils 0.1 Sodium 134.4 L Potassium 5.4 H Chloride 106 Carbon Dioxide 10 L* Anion Gap 18 BUN 44 H Creatinine 2.20 H Est GFR ( Amer) 28 L Est GFR (Non-Af Amer) 23 L Glucose 120 H Calcium 8.8 Urine Color YELLOW Urine Appearance CLOUDY Urine pH 5.0 Ur Specific Surrency 1.027 Urine Protein 30 H Urine Glucose (UA) NEGATIVE Urine Ketones TRACE H Urine Blood NEGATIVE Urine Nitrite NEGATIVE Ur Leukocyte Esterase NEGATIVE Urine WBC (Auto) 2 Urine RBC (Auto) 2 Blood Type Antibody Screen 07/09/18 07/09/18 06:27 14:06 WBC RBC Hgb Hct MCV MCH MCHC RDW Plt Count Seg Neutrophils % Lymphocytes % Monocytes % Eosinophils % Basophils % Absolute Neutrophils Absolute Lymphocytes Absolute Monocytes Absolute Eosinophils Absolute Basophils Sodium 136.1 L Potassium 4.8 Chloride 109 H Carbon Dioxide 11 L Anion Gap 16 BUN 42 H Creatinine 2.67 H Est GFR ( Amer) 22 L Est GFR (Non-Af Amer) 19 L Glucose 121 H Calcium 9.4 Urine Color Urine Appearance Urine pH Ur Specific Surrency Urine Protein Urine Glucose (UA) Urine Ketones Urine Blood Urine Nitrite Ur Leukocyte Esterase Urine WBC (Auto) Urine RBC (Auto) Blood Type O POSITIVE Antibody Screen NEGATIVE Impressions: Chest X-Ray 07/08/18 00:00 IMPRESSION: No acute infiltrates or pleural effusion. Left supraclavicular soft tissue air of uncertain clinical significance. Renal Ultrasound 07/08/18 00:00 IMPRESSION: Morbid obesity. Very limited visualization of the kidneys with ultrasound. No gross hydronephrosis Abdomen/Pelvis CT 07/09/18 00:00 IMPRESSION: NO SIGNIFICANT OR ACUTE PROCESS IN THE ABDOMEN OR PELVIS. Assessment & Plan - Diagnosis (1) Severe sepsis Is this a current diagnosis for this admission?: Yes Plan: Patient reportedly had low systolic blood pressure in the 80s systolic in route to the ER. Upon presentation in the ED, patient's blood pressure was as low as 90 over 60s. She was initially slightly tachypneic at 23. She also presented with significant leukocytosis with a WBC count of 20,000. Sepsis is secondary to left upper back abscess. Continue broad-spectrum IV antibiotics at this time. Final results of cultures are pending. Patient has received 2 L of fluid bolus in the ER. Continue IV fluids. (2) Abscess Is this a current diagnosis for this admission?: Yes Plan: Left upper back abscess was incised and drained in the ER. Surgery consulted and patient is currently in OR for possible re-debridement. (3) MRSA (methicillin resistant Staphylococcus aureus) Is this a current diagnosis for this admission?: Yes Plan: Patient says that she has a history of MRSA infection of the skin. She says that all her family members had MRSA. Her was recently discharged from [facility] for MRSA related infection of the thigh and reportedly had a recent debridement of the thigh. MRSA surveillance pending. Patient will likely need decolonization. (4) High anion gap metabolic acidosis Is this a current diagnosis for this admission?: Yes Plan: Slightly improved. This is likely secondary to severe sepsis and acute renal failure. Continue IV fluids. Will continue to monitor renal functions. (5) Acute renal failure Is this a current diagnosis for this admission?: Yes Plan: Patient's creatinine has trended up to 2.2. She has a baseline creatinine of 1.3-1.4. FENA is 0.4% which suggest pre renal IVORY. But this is likely more of a combination of pre renal IVORY from dehydration, severe sepsis and septic ATN. Imaging has ruled out obstructive uropathy. Continue IV fluids and antibiotics for sepsis. Will give another bolus of normal saline. Caution with vancomycin due to acute renal failure. Pharmacy dosing vanco. Will consult nephrology for further recommendations. (6) Diabetes mellitus Qualifiers: Diabetes mellitus type: type 2 Is this a current diagnosis for this admission?: Yes Plan: Hemoglobin A1c is 7.3. Continue to monitor blood sugars. Continue sliding scale at the moment. (7) Thrombocytosis Is this a current diagnosis for this admission?: Yes Plan: Platelet count is improved today. Thrombocytosis is likely reactive secondary to severe sepsis. (8) Chronic kidney disease, stage 3 Is this a current diagnosis for this admission?: Yes Plan: Patient has CKD 3 possibly from diabetes mellitus. She currently has acute renal failure on top of CKD. We will continue to closely monitor monitor renal functions. Await recommendations from nephrology. - Time Time Spent with patient: 35 or more minutes
[2018-07-09 17:10] LABS: BLOOD UREA NITROGEN 41 mg/dL (7-20); CALCIUM 8.8 mg/dL (8.4-10.2); CHLORIDE 110 mmol/L (98-107); GLUCOSE 128 mg/dL (75-110); POTASSIUM 4.8 mmol/L (3.6-5.0); SODIUM 136.4 mmol/L (137-145)
[2018-07-09 17:16] LABS: ANION GAP 16 (5-19)
[2018-07-09 17:22] LABS: CARBON DIOXIDE 10 mmol/L (22-30)
[2018-07-09] MEDS ORDERED: RINGERS SOLUTION,LACTATED 1,000 ML IV PRN (17:55)
[2018-07-09] MEDS ORDERED: DAPTOMYCIN INJ 500 MG VIAL IV SCH (18:00)
[2018-07-09] MEDS ORDERED: DAPTOMYCIN INJ 500 MG VIAL ONE (18:36)
[2018-07-09 18:43] LABS: ARTERIAL BLOOD BASE EXCESS -16.5 mmol/L; ARTERIAL BLOOD H2CO3 0.91 mmol/L (1.05-1.35); ARTERIAL BLOOD HCO3 10.7 mmol/L (20-24); ARTERIAL BLOOD PCO2 30.1 mmHg (35-45); ARTERIAL BLOOD PO2 100.2 mmHg (80-100); ARTERIAL BLOOD TOTAL CO2 11.6 mmol/L (21-25)
[2018-07-09 18:44] LABS: ARTERIAL BLOOD FIO2 21%
[2018-07-09 18:46] LABS: ARTERIAL BLOOD PH 7.17 (7.35-7.45)
[2018-07-09] MEDS ORDERED: DEXTROSE 5%-WATER 1000 ML 1,000 ML with SODIUM BICARBONATE 150 MEQ IV PRN ×2 (20:10)
[2018-07-09] MEDS ORDERED: SODIUM BICARBONATE 8.4% INJ 50 MEQ/50 ML DISP.SYRIN ONE ×3 (20:48→20:51)
[2018-07-09] MEDS: OXYCODONE HCL SR 40 MG TABLET PO SCH (21:25)
[2018-07-09] MEDS: INSULIN LISPRO 100 UNIT/ML 3 ML VIAL SUBCUT PRN (23:39)
[2018-07-10] MEDS: PIPERACILLIN SODIUM/TAZOBACTAM 3.375 GM in NORMAL SALINE 100 ML IV SCH ×5 (00:41→23:30)
[2018-07-10] MEDS: HEPARIN SOD (PORCINE) 5,000 UNIT/ML 1 ML SYRINGE SUBCUT SCH ×3 (05:09→21:28)
[2018-07-10] MEDS: LANSOPRAZOLE 15 MG TAB.RAP.DR PO SCH (05:10)
[2018-07-10 05:31] LABS: ABSOLUTE BASOPHILS # (AUTO) 0.1 10^3/uL (0.0-0.2); ABSOLUTE EOSINOPHILS # (AUTO) 0.1 10^3/uL (0.0-0.6); ABSOLUTE LYMPHOCYTES (AUTO) 1.3 10^3/uL (0.5-4.7); ABSOLUTE MONOCYTES (AUTO) 0.7 10^3/uL (0.1-1.4); ABSOLUTE NEUT (AUTO) 7.1 10^3/uL (1.7-8.2); BASOPHILS % (AUTO) 0.9 % (0-2); EOSINOPHILS % (AUTO) 1.5 % (0-6); HEMATOCRIT 21.4 % (36.0-47.0); LYMPHOCYTES % (AUTO) 13.8 % (13-45); MEAN CORPUSCULAR HEMOGLOBIN 29.6 pg (27.0-33.4); MEAN CORPUSCULAR HGB CONC 33.9 g/dL (32.0-36.0); MEAN CORPUSCULAR VOLUME 87 fl (80-97); MONOCYTES % (AUTO) 7.3 % (3-13); PLATELET COUNT 514 10^3/uL (150-450); RED BLOOD COUNT 2.46 10^6/uL (3.72-5.28); RED CELL DISTRIBUTION WIDTH 15.6 % (11.5-14.0); SEGMENTED NEUTROPHILS % (AUTO) 76.5 % (42-78); TOTAL CELLS COUNTED % (AUTO) 100 %; WHITE BLOOD COUNT 9.3 10^3/uL (4.0-10.5)
[2018-07-10 05:34] LABS: HEMOGLOBIN 7.3 g/dL (12.0-15.5)
[2018-07-10 05:47] LABS: ANION GAP 18 (5-19); BLOOD UREA NITROGEN 40 mg/dL (7-20); CALCIUM 8.5 mg/dL (8.4-10.2); CARBON DIOXIDE 11 mmol/L (22-30); CHLORIDE 109 mmol/L (98-107); CREATINE KINASE 48 U/L (30-135); GLUCOSE 140 mg/dL (75-110); POTASSIUM 4.1 mmol/L (3.6-5.0); SODIUM 137.9 mmol/L (137-145)
[2018-07-10] MEDS ORDERED: NORMAL SALINE 1000 ML 1,000 ML IV ONE (06:07)
[2018-07-10] MEDS ORDERED: CLINDAMYCIN 900 MG/D5W RTU 900 MG/50 ML RTUPB IV ONE ×2 (06:15→06:21)
[2018-07-10 06:25] LABS: ABSOLUTE RETICS # 0.034 10^6/uL (0.028-0.122)
[2018-07-10 07:06] LABS: IRON(TIBC) 63.7 ug/dL (37-170)
--- NOTE | 2018-07-10 08:05 | RADIOLOGY REPORT (SQ) ---
EXAM DESCRIPTION: CHEST SINGLE VIEW COMPLETED DATE/TIME: 07/10/2018 7:56 am REASON FOR STUDY: reassess volume status COMPARISON: AP chest 07/08/2018, AP chest 07/30/2017 EXAM PARAMETERS: NUMBER OF VIEWS: One view. TECHNIQUE: Single frontal radiographic view of the chest acquired. RADIATION DOSE: NA LIMITATIONS: None. FINDINGS: LUNGS AND PLEURA: No opacities, masses or pneumothorax. No pleural effusion. MEDIASTINUM AND HILAR STRUCTURES: No masses. Contour normal. HEART AND VASCULAR STRUCTURES: Heart normal in size. Normal vasculature. BONES: No acute findings. HARDWARE: None in the chest. OTHER: Abnormal soft tissue gas is seen over the left supraclavicular and axillary region, similar co mpared to 03/07/2018, of uncertain etiology. IMPRESSION: Abnormal soft tissue gas is seen over the left supraclavicular and axillary region. Otherwise unremarkable study TECHNICAL DOCUMENTATION: JOB ID: [id number] [employer]- All Rights Reserved Reading location - IP/workstation name: [email or web address]
[2018-07-10 08:16] LABS: FOLATE 7.33 ng/mL (>2.76)
[2018-07-10] MEDS: NORMAL SALINE 1000 ML 1,000 ML IV PRN ×2 (08:31→17:39)
[2018-07-10] MEDS: INSULIN LISPRO 100 UNIT/ML 3 ML VIAL SUBCUT PRN ×3 (08:31→21:29)
[2018-07-10 08:36] LABS: ARTERIAL BLOOD H2CO3 0.86 mmol/L (1.05-1.35); ARTERIAL BLOOD HCO3 12.8 mmol/L (20-24); ARTERIAL BLOOD O2 SATURATION 97.3 % (94-98); ARTERIAL BLOOD PCO2 28.7 mmHg (35-45); ARTERIAL BLOOD PH 7.27 (7.35-7.45); ARTERIAL BLOOD PO2 107.2 mmHg (80-100); ARTERIAL BLOOD TOTAL CO2 13.6 mmol/L (21-25)
[2018-07-10 08:39] LABS: ARTERIAL BLOOD FIO2 ROOM AIR
--- NOTE | 2018-07-10 09:55 | PDOC PROGRESS REPORT ---
Subjective Progress Note for:: 07/10/18 Subjective:: Pains at the I&D site Reason For Visit: SEVERE SEPSIS,BACK ABSCESS Physical Exam Vital Signs: Temp Pulse Resp BP Pulse Ox 98.1 F 116 H 18 105/70 100 07/10/18 07:14 07/10/18 08:40 07/10/18 08:40 07/10/18 07:14 07/10/18 08:40 Intake & Output 07/09/18 07/10/18 07/11/18 06:59 06:59 06:59 Intake Total 1 5508 1999 Output Total 0 1525 Balance 1 3983 1999 Weight 131.9 kg 133.2 kg Exam: Packing was removed. It is a big abscess cavity but no more drainge . Results Laboratory Results: 07/10/18 05:08 07/10/18 05:08 07/09/18 07/09/18 07/09/18 14:06 16:29 18:20 WBC RBC Hgb Hct MCV MCH MCHC RDW Plt Count Seg Neutrophils % Lymphocytes % Monocytes % Eosinophils % Basophils % Absolute Neutrophils Absolute Lymphocytes Absolute Monocytes Absolute Eosinophils Absolute Basophils Retic Count (auto) Absolute Retic Carbonic Acid HCO3/H2CO3 Ratio ABG pH ABG pCO2 ABG pO2 ABG HCO3 ABG O2 Saturation ABG Base Excess FiO2 Sodium 136.4 L Potassium 4.8 Chloride 110 H Carbon Dioxide 10 L* Anion Gap 16 BUN 41 H Creatinine 2.70 H Est GFR ( Amer) 22 L Est GFR (Non-Af Amer) 18 L Glucose 128 H Lactic Acid 1.4 Calcium 8.8 Iron TIBC % Saturation Ferritin Vitamin B12 Folate Blood Type O POSITIVE Antibody Screen NEGATIVE 07/09/18 07/10/18 07/10/18 18:26 05:08 05:08 WBC 9.3 RBC 2.46 L Hgb 7.3 L Hct 21.4 L MCV 87 MCH 29.6 MCHC 33.9 RDW 15.6 H Plt Count 514 H Seg Neutrophils % 76.5 Lymphocytes % 13.8 Monocytes % 7.3 Eosinophils % 1.5 Basophils % 0.9 Absolute Neutrophils 7.1 Absolute Lymphocytes 1.3 Absolute Monocytes 0.7 Absolute Eosinophils 0.1 Absolute Basophils 0.1 Retic Count (auto) Absolute Retic Carbonic Acid 0.91 L HCO3/H2CO3 Ratio 11:1 ABG pH 7.17 L* ABG pCO2 30.1 L ABG pO2 100.2 H ABG HCO3 10.7 L ABG O2 Saturation 96.0 ABG Base Excess -16.5 FiO2 21% Sodium 137.9 Potassium 4.1 Chloride 109 H Carbon Dioxide 11 L Anion Gap 18 BUN 40 H Creatinine 3.34 H Est GFR ( Amer) 17 L Est GFR (Non-Af Amer) 14 L Glucose 140 H Lactic Acid Calcium 8.5 Iron TIBC % Saturation Ferritin Vitamin B12 Folate Blood Type Antibody Screen 07/10/18 07/10/18 07/10/18 05:08 05:08 08:11 WBC RBC Hgb Hct MCV MCH MCHC RDW Plt Count Seg Neutrophils % Lymphocytes % Monocytes % Eosinophils % Basophils % Absolute Neutrophils Absolute Lymphocytes Absolute Monocytes Absolute Eosinophils Absolute Basophils Retic Count (auto) 1.40 Absolute Retic 0.034 Carbonic Acid 0.86 L HCO3/H2CO3 Ratio 14:1 ABG pH 7.27 L ABG pCO2 28.7 L ABG pO2 107.2 H ABG HCO3 12.8 L ABG O2 Saturation 97.3 ABG Base Excess -13.0 FiO2 ROOM AIR Sodium Potassium Chloride Carbon Dioxide Anion Gap BUN Creatinine Est GFR ( Amer) Est GFR (Non-Af Amer) Glucose Lactic Acid Calcium Iron 63.7 TIBC 290 % Saturation 22 Ferritin 550.00 H Vitamin B12 821.0 Folate 7.33 Blood Type Antibody Screen 07/09/18 07/10/18 18:20 05:08 Creatine Kinase 44 48 Impressions: Renal Ultrasound 07/08/18 00:00 IMPRESSION: Morbid obesity. Very limited visualization of the kidneys with ultrasound. No gross hydronephrosis Abdomen/Pelvis CT 07/09/18 00:00 IMPRESSION: NO SIGNIFICANT OR ACUTE PROCESS IN THE ABDOMEN OR PELVIS. Chest X-Ray 07/10/18 06:00 IMPRESSION: Abnormal soft tissue gas is seen over the left supraclavicular and axillary region. Otherwise unremarkable study Assessment & Plan - Time Time Spent with patient: 15-24 minutes - Inpatient Certification Medical Necessity: Need for Pain Control, Need for IV Antibiotics - Plan Summary Plan Summary: A new packing using whole bottle of 1/4 inch iodoform gauze was placed. Continue IV antibiotics and daily packing changes. Maybe discharge in 24-48 hrs once C/S obtained for appropriate antibiotics. Follow up with visiting nurse for daily wound check and packing. Arrange follow up at the surgical clinic in 2 weeks
[2018-07-10] MEDS: DULOXETINE HCL 30 MG CAPSULE.DR PO SCH ×2 (10:04→21:29)
[2018-07-10] MEDS: ASPIRIN 81 MG TABLET, ENT COATED PO SCH (10:05)
[2018-07-10] MEDS: OXYCODONE HCL SR 40 MG TABLET PO SCH ×2 (10:05→21:29)
[2018-07-10] MEDS: SENNOSIDES/DOCUSATE 8.6-50 MG 1 EACH TABLET PO SCH (10:05)
[2018-07-10] MEDS: DEXTROSE 5%-WATER 1000 ML 1,000 ML with SODIUM BICARBONATE 150 MEQ IV PRN ×2 (11:28)
--- NOTE | 2018-07-10 13:34 | PDOC PROGRESS REPORT ---
Subjective Progress Note for:: 07/10/18 Subjective:: This is a 53-year-old female who was admitted for severe sepsis secondary to a large back abscess which was initially drained in the ER upon admission.. Patient underwent a repeat debridement on 07/09/18 by surgery. Patient came in with severe metabolic acidosis likely from severe sepsis and acute on chronic renal failure. Patient has received multiple fluid boluses. She was persistently having severe metabolic acidosis and was eventually started on bicarb drip yesterday. She did have initially acidotic breathing but these appeared to improve overnight. No acute event overnight. No significant purulent discharge from the incised wound. No fever or chills. She is breathing more comfortably today she denies any chest pain or shortness of breath. Reason For Visit: SEVERE SEPSIS,BACK ABSCESS Physical Exam Vital Signs: Temp Pulse Resp BP Pulse Ox 98.2 F 126 H 20 133/66 H 99 07/10/18 11:54 07/10/18 11:54 07/10/18 11:54 07/10/18 11:54 07/10/18 11:54 Intake & Output 07/09/18 07/10/18 07/11/18 06:59 06:59 06:59 Intake Total 2031 5508 2100 Output Total 0 1525 Balance 2031 3983 2100 Weight 290 lb 12.635 oz 293 lb 10.491 oz General appearance: PRESENT: no acute distress, well-developed, well-nourished Head exam: PRESENT: atraumatic, normocephalic Eye exam: PRESENT: conjunctiva pink, EOMI, PERRLA. ABSENT: scleral icterus Ear exam: PRESENT: normal external ear exam Mouth exam: PRESENT: moist, tongue midline Neck exam: ABSENT: carotid bruit, JVD, lymphadenopathy, thyromegaly Respiratory exam: PRESENT: clear to auscultation so. ABSENT: rales, rhonchi, wheezes Cardiovascular exam: PRESENT: RRR. ABSENT: diastolic murmur, rubs, systolic murmur Pulses: PRESENT: normal dorsalis pedis pul GI/Abdominal exam: PRESENT: normal bowel sounds, soft. ABSENT: distended, guarding, mass, organolmegaly, rebound, tenderness Rectal exam: PRESENT: deferred Musculoskeletal exam: PRESENT: other - Packed and recently re-debrided wound from abscess on the left upper back with no significant discharge Neurological exam: PRESENT: alert, awake, oriented to person, oriented to place , oriented to time, oriented to situation, CN II-XII grossly intact. ABSENT: motor sensory deficit Results Laboratory Results: 07/10/18 05:08 07/10/18 05:08 07/09/18 07/09/18 07/09/18 14:06 16:29 18:20 WBC RBC Hgb Hct MCV MCH MCHC RDW Plt Count Seg Neutrophils % Lymphocytes % Monocytes % Eosinophils % Basophils % Absolute Neutrophils Absolute Lymphocytes Absolute Monocytes Absolute Eosinophils Absolute Basophils Retic Count (auto) Absolute Retic Carbonic Acid HCO3/H2CO3 Ratio ABG pH ABG pCO2 ABG pO2 ABG HCO3 ABG O2 Saturation ABG Base Excess FiO2 Sodium 136.4 L Potassium 4.8 Chloride 110 H Carbon Dioxide 10 L* Anion Gap 16 BUN 41 H Creatinine 2.70 H Est GFR ( Amer) 22 L Est GFR (Non-Af Amer) 18 L Glucose 128 H Lactic Acid 1.4 Calcium 8.8 Iron TIBC % Saturation Ferritin Vitamin B12 Folate Blood Type O POSITIVE Antibody Screen NEGATIVE 07/09/18 07/10/18 07/10/18 18:26 05:08 05:08 WBC 9.3 RBC 2.46 L Hgb 7.3 L Hct 21.4 L MCV 87 MCH 29.6 MCHC 33.9 RDW 15.6 H Plt Count 514 H Seg Neutrophils % 76.5 Lymphocytes % 13.8 Monocytes % 7.3 Eosinophils % 1.5 Basophils % 0.9 Absolute Neutrophils 7.1 Absolute Lymphocytes 1.3 Absolute Monocytes 0.7 Absolute Eosinophils 0.1 Absolute Basophils 0.1 Retic Count (auto) Absolute Retic Carbonic Acid 0.91 L HCO3/H2CO3 Ratio 11:1 ABG pH 7.17 L* ABG pCO2 30.1 L ABG pO2 100.2 H ABG HCO3 10.7 L ABG O2 Saturation 96.0 ABG Base Excess -16.5 FiO2 21% Sodium 137.9 Potassium 4.1 Chloride 109 H Carbon Dioxide 11 L Anion Gap 18 BUN 40 H Creatinine 3.34 H Est GFR ( Amer) 17 L Est GFR (Non-Af Amer) 14 L Glucose 140 H Lactic Acid Calcium 8.5 Iron TIBC % Saturation Ferritin Vitamin B12 Folate Blood Type Antibody Screen 07/10/18 07/10/18 07/10/18 05:08 05:08 08:11 WBC RBC Hgb Hct MCV MCH MCHC RDW Plt Count Seg Neutrophils % Lymphocytes % Monocytes % Eosinophils % Basophils % Absolute Neutrophils Absolute Lymphocytes Absolute Monocytes Absolute Eosinophils Absolute Basophils Retic Count (auto) 1.40 Absolute Retic 0.034 Carbonic Acid 0.86 L HCO3/H2CO3 Ratio 14:1 ABG pH 7.27 L ABG pCO2 28.7 L ABG pO2 107.2 H ABG HCO3 12.8 L ABG O2 Saturation 97.3 ABG Base Excess -13.0 FiO2 ROOM AIR Sodium Potassium Chloride Carbon Dioxide Anion Gap BUN Creatinine Est GFR ( Amer) Est GFR (Non-Af Amer) Glucose Lactic Acid Calcium Iron 63.7 TIBC 290 % Saturation 22 Ferritin 550.00 H Vitamin B12 821.0 Folate 7.33 Blood Type Antibody Screen 07/09/18 07/10/18 18:20 05:08 Creatine Kinase 44 48 Impressions: Renal Ultrasound 07/08/18 00:00 IMPRESSION: Morbid obesity. Very limited visualization of the kidneys with ultrasound. No gross hydronephrosis Abdomen/Pelvis CT 07/09/18 00:00 IMPRESSION: NO SIGNIFICANT OR ACUTE PROCESS IN THE ABDOMEN OR PELVIS. Chest X-Ray 07/10/18 06:00 IMPRESSION: Abnormal soft tissue gas is seen over the left supraclavicular and axillary region. Otherwise unremarkable study Assessment & Plan - Diagnosis (1) Severe sepsis Is this a current diagnosis for this admission?: Yes Plan: Patient reportedly had low systolic blood pressure in the 80s systolic in route to the ER. Upon presentation in the ED, patient's blood pressure was as low as 90 over 60s. She was initially slightly tachypneic at 23. She also presented with significant leukocytosis with a WBC count of 20,000. Sepsis is secondary to a large left upper back abscess. Continue broad-spectrum IV antibiotics at this time. Culture from the abscess grew MRSA. Blood culture initially grew gram positive cocci in clusters. Patient has received a total of 5 L of fluid bolus. Vancomycin was switched to daptomycin on 07/09/18 due to worsening renal functions. Baseline CPK has been obtained prior to daptomycin administration. Will discontinue Zosyn today. (2) Abscess Is this a current diagnosis for this admission?: Yes Plan: Left upper back abscess was incised and drained in the ER. Patient underwent re -debridement by surgery on 07/09/18. Appreciate surgery recommendations. (3) MRSA (methicillin resistant Staphylococcus aureus) Is this a current diagnosis for this admission?: Yes Plan: Patient says that she has a history of MRSA infection of the skin. She says that all her family members had MRSA. Her was recently discharged from [facility] for MRSA related infection of the thigh and reportedly had a recent debridement of the thigh. MRSA surveillance pending. Patient will likely need decolonization. Will consult ID for further recommendations. (4) High anion gap metabolic acidosis Is this a current diagnosis for this admission?: Yes Plan: Slightly improved. This is likely secondary to severe sepsis and acute on chronic renal failure. Continue IV fluids. Patient was started on bicarb drip yesterday. Conferred with nephrology today who recommended continuing bicarb for another day. Repeat ABG today has shown improvement of metabolic acidosis. Creatinine continues to significantly trend up. We will follow-up on further nephro recommendations. Will continue to closely monitor renal functions. (5) Acute renal failure Is this a current diagnosis for this admission?: Yes Plan: Patient's creatinine continues to trend up and is up to 3.34 today. She has a baseline creatinine of 1.3-1.4. FENA is 0.4% which suggest pre renal IVORY. But this is likely more of a combination of pre renal IVORY from dehydration, severe sepsis and septic ATN. Imaging has ruled out obstructive uropathy. Continue IV fluids and antibiotics for sepsis. Patient has received a total of 5 L of fluid boluses so far. Continue IV fluids. Currently on bicarb drip. Will follow -up on further nephro recommendations. Will continue to closely monitor renal functions. (6) Diabetes mellitus Qualifiers: Diabetes mellitus type: type 2 Is this a current diagnosis for this admission?: Yes Plan: Hemoglobin A1c is 7.3. Continue to monitor blood sugars. Continue sliding scale at the moment. (7) Thrombocytosis Is this a current diagnosis for this admission?: Yes Plan: Improving. Thrombocytosis is likely reactive secondary to severe sepsis. (8) Chronic kidney disease, stage 3 Is this a current diagnosis for this admission?: Yes Plan: Patient has CKD 3 possibly from chronic hypertension and diabetes mellitus. She currently has acute renal failure on top of CKD. We will continue to closely monitor monitor renal functions. Await further recommendations from nephrology. - Time Time Spent with patient: 35 or more minutes
[2018-07-10] MEDS ORDERED: CLINDAMYCIN 900 MG/D5W RTU 900 MG/50 ML RTUPB IV SCH (14:00)
[2018-07-10] MEDS ORDERED: DEXTROSE 5%-WATER 1000 ML 1,000 ML with SODIUM BICARBONATE 50 MEQ IV ONE ×2 (14:00)
--- NOTE | 2018-07-10 16:44 | PDOC CONSULTATION ---
Consultation Consult Date: 07/10/18 Consult reason:: IVORY on CKD 2/3, Severe gap metabolic acidosis. History of Present Illness Admission Date/PCP: 07/08/18 12:31 SIMONA LARA MD History of Present Illness: REBECCA BRITT is a 53 year old female with a history of long-standing diabetes mellitus apparently poorly controlled now currently on diet as she has no primary care physician to manage her diabetes now that she has lost insurance , hypertension COPD and CKD stage II/III with base creatinine between 1.5-2 admitted with history of large abscess on the back with fever chills in septic shock. She was found to have a large abscess with MRSA that was has been incised and drained. Blood pressure has been stabilized with introduction of IV antibiotics along with the surgical procedure. Patient currently feeling a whole lot better. She has been known to have recurrent abscess in the past with MRSA. Unfortunately her blood sugars have been improperly controlled because she has no insurance to take care of her doctor visits and medications. She is making good amounts of urine output. She denies any such chest pain or shortness of breath. No more fever or chills. Labs and medications were reviewed with the patient. Past Medical History Cardiac Medical History: Reports: Hypertension-primary Denies: Atrial Fibrillation, Hyperlipidemia, Myocardial Infarction Pulmonary Medical History: Reports: Asthma, Bronchitis, Sleep Apnea Denies: Chronic Obstructive Pulmonary Disease (COPD), Pneumonia, Tuberculosis Neurological Medical History: Reports: Migraine Denies: Seizures Endocrine Medical History: Reports: Diabetes Mellitus Type 2 - borderline controlled by diet Renal/ Medical History: Reports: Chronic Kidney Disease Stage III Denies: Benign Prostatic Hyperplasia GI Medical History: Reports: Diverticulitis, Gastroesophageal Reflux Disease Denies: Hiatal Hernia Musculoskeltal Medical History: Reports: Arthritis - 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, Fibromyalgia Denies: Rheumatoid Arthritis, Systemic Lupus Erythematosus Skin Medical History: Reports: Eczema Psychiatric Medical History: Reports: Depression Denies: Bipolar Disorder Infectious Medical History: Reports: Methicillin-resist Staph Aureus Past Surgical History Past Surgical History: Reports: Appendectomy, Cholecystectomy, Gastric Bypass Surgery, Herniorrhaphy - umbilical, Orthopedic Surgery - Left hip replaced., Tonsillectomy Denies: Section, Hysterectomy, Mastectomy, Tubal Ligation Social History Smoking Status: Never Smoker Number of Years Smokin Frequency of Alcohol Use: None Hx Recreational Drug Use: No Drugs: None Hx Prescription Drug Abuse: No - Advance Directive Resuscitation Status: Full Code Family History Parental Family History Reviewed: Yes - Denies any history of ESRD. Children Family History Reviewed: No Sibling(s) Family History Reviewed.: No Medication/Allergy Home Medications: Albuterol Sulfate [Proair Hfa Inhalation Aerosol 8.5 gm Mdi] 1 puff IH Q6HP PRN 07/08/18 Aspirin [Aspirin EC] 81 mg PO DAILY 07/08/18 Duloxetine HCl [Cymbalta] 60 mg PO Q12 07/08/18 Estazolam [Prosom] 2 mg PO QHS MDD LAST FILLED 04-19-18 07/08/18 Metoprolol Tartrate [Lopressor 100 mg Tablet] 100 mg PO Q12 07/08/18 Omeprazole 20 mg PO DAILY 07/08/18 Tizanidine HCl [Zanaflex 4 Mg Tablet] 4 mg PO Q8HP PRN 07/08/18 Allergies/Adverse Reactions: NSAIDS (Non-Steroidal Anti-Inflamma [Nsaids] Allergy (Severe, Verified 05/21/18 07:29) Severe diarrhea Review of Systems Constitutional: PRESENT: chills, fatigue, fever(s), weakness. ABSENT: anorexia , headache(s), night sweats Nose, Mouth, and Throat: ABSENT: mouth pain, sore throat Cardiovascular: PRESENT: edema. ABSENT: chest pain, orthropnea Respiratory: PRESENT: dyspnea - on and off and chronic.. ABSENT: cough Gastrointestinal: ABSENT: abdominal pain, diarrhea, dysphagia, heartburn, hematemesis, hematochezia, nausea, vomiting Integumentary: PRESENT: lesions. ABSENT: pruritus Neurological: ABSENT: abnormal movements, abnormal speech, focal weakness, frequent falls Psychiatric: PRESENT: anxiety, depression. ABSENT: homidical ideation, suicidal ideation Hematologic/Lymphatic: ABSENT: easy bleeding, easy bruising, lymphadenopathy Physical Exam Vital Signs: Temp Pulse Resp BP Pulse Ox 97.4 F 122 H 16 112/85 95 07/10/18 15:30 07/10/18 15:30 07/10/18 15:30 07/10/18 15:30 07/10/18 15:30 Intake & Output 07/09/18 07/10/18 07/11/18 06:59 06:59 06:59 Intake Total 2030 5508 3700 Output Total 0 1525 Balance 2031 3983 3700 Weight 131.9 kg 133.2 kg General appearance: PRESENT: no acute distress Eye exam: PRESENT: conjunctiva pink, EOMI, PERRLA. ABSENT: scleral icterus Mouth exam: PRESENT: moist, neck supple Neck exam: ABSENT: lymphadenopathy, meningismus, tenderness, thyromegaly, tracheal deviation Respiratory exam: PRESENT: clear to auscultation so. ABSENT: crackles Cardiovascular exam: PRESENT: +S1, +S2 GI/Abdominal exam: PRESENT: normal bowel sounds, soft. ABSENT: organomegaly, tenderness Extremities exam: PRESENT: pedal edema Neurological exam: PRESENT: alert, awake, oriented to person, oriented to place Skin exam: ABSENT: rash Results Laboratory Results: 07/10/18 05:08 07/10/18 05:08 07/09/18 07/09/18 07/09/18 16:29 18:20 18:26 WBC RBC Hgb Hct MCV MCH MCHC RDW Plt Count Seg Neutrophils % Lymphocytes % Monocytes % Eosinophils % Basophils % Absolute Neutrophils Absolute Lymphocytes Absolute Monocytes Absolute Eosinophils Absolute Basophils Retic Count (auto) Absolute Retic Carbonic Acid 0.91 L HCO3/H2CO3 Ratio 11:1 ABG pH 7.17 L* ABG pCO2 30.1 L ABG pO2 100.2 H ABG HCO3 10.7 L ABG O2 Saturation 96.0 ABG Base Excess -16.5 FiO2 21% Sodium 136.4 L Potassium 4.8 Chloride 110 H Carbon Dioxide 10 L* Anion Gap 16 BUN 41 H Creatinine 2.70 H Est GFR ( Amer) 22 L Est GFR (Non-Af Amer) 18 L Glucose 128 H Lactic Acid 1.4 Calcium 8.8 Iron TIBC % Saturation Ferritin Vitamin B12 Folate 07/10/18 07/10/18 07/10/18 05:08 05:08 05:08 WBC 9.3 RBC 2.46 L Hgb 7.3 L Hct 21.4 L MCV 87 MCH 29.6 MCHC 33.9 RDW 15.6 H Plt Count 514 H Seg Neutrophils % 76.5 Lymphocytes % 13.8 Monocytes % 7.3 Eosinophils % 1.5 Basophils % 0.9 Absolute Neutrophils 7.1 Absolute Lymphocytes 1.3 Absolute Monocytes 0.7 Absolute Eosinophils 0.1 Absolute Basophils 0.1 Retic Count (auto) 1.40 Absolute Retic 0.034 Carbonic Acid HCO3/H2CO3 Ratio ABG pH ABG pCO2 ABG pO2 ABG HCO3 ABG O2 Saturation ABG Base Excess FiO2 Sodium 137.9 Potassium 4.1 Chloride 109 H Carbon Dioxide 11 L Anion Gap 18 BUN 40 H Creatinine 3.34 H Est GFR ( Amer) 17 L Est GFR (Non-Af Amer) 14 L Glucose 140 H Lactic Acid Calcium 8.5 Iron TIBC % Saturation Ferritin Vitamin B12 Folate 07/10/18 07/10/18 05:08 08:11 WBC RBC Hgb Hct MCV MCH MCHC RDW Plt Count Seg Neutrophils % Lymphocytes % Monocytes % Eosinophils % Basophils % Absolute Neutrophils Absolute Lymphocytes Absolute Monocytes Absolute Eosinophils Absolute Basophils Retic Count (auto) Absolute Retic Carbonic Acid 0.86 L HCO3/H2CO3 Ratio 14:1 ABG pH 7.27 L ABG pCO2 28.7 L ABG pO2 107.2 H ABG HCO3 12.8 L ABG O2 Saturation 97.3 ABG Base Excess -13.0 FiO2 ROOM AIR Sodium Potassium Chloride Carbon Dioxide Anion Gap BUN Creatinine Est GFR ( Amer) Est GFR (Non-Af Amer) Glucose Lactic Acid Calcium Iron 63.7 TIBC 290 % Saturation 22 Ferritin 550.00 H Vitamin B12 821.0 Folate 7.33 07/08/18 19:28 Clean Catch Midstream Urine Culture - Final Yeast, Not Patti Albicans 07/09/18 07/10/18 18:20 05:08 Creatine Kinase 44 48 Impressions: Renal Ultrasound 07/08/18 00:00 IMPRESSION: Morbid obesity. Very limited visualization of the kidneys with ultrasound. No gross hydronephrosis Abdomen/Pelvis CT 07/09/18 00:00 IMPRESSION: NO SIGNIFICANT OR ACUTE PROCESS IN THE ABDOMEN OR PELVIS. Chest X-Ray 07/10/18 06:00 IMPRESSION: Abnormal soft tissue gas is seen over the left supraclavicular and axillary region. Otherwise unremarkable study Assessment & Plan - Diagnosis (1) Acute renal failure Is this a current diagnosis for this admission?: Yes Plan: Nonoliguric. Septic ATN. Electrolytes stable but for gap acidosis. Patient on bicarb infusion. We will also add bolus bicarb. Otherwise continue rest of current medical management. (2) High anion gap metabolic acidosis Is this a current diagnosis for this admission?: Yes Plan: Secondary to AK I with additional involvement from septic shock. Lactic acid was normal though. Continue bicarb infusion along with the bolus and monitoring. We will monitor. No indications for renal replacements. (3) Septic shock Plan: Resolved and stable now. (4) MRSA (methicillin resistant Staphylococcus aureus) Is this a current diagnosis for this admission?: Yes Plan: Acute on top of chronic and recurrent. Has had a history of recurrent abscesses in the past. Apparently multiple family members are carriers of MRSA. (5) Chronic kidney disease, stage 3 Is this a current diagnosis for this admission?: Yes (6) Diabetes mellitus Qualifiers: Diabetes mellitus type: type 2 Is this a current diagnosis for this admission?: Yes Plan: Advised him the need for tight diabetic control.
[2018-07-10 18:05] LABS: ANION GAP 16 (5-19); BLOOD UREA NITROGEN 37 mg/dL (7-20); CARBON DIOXIDE 13 mmol/L (22-30); CHLORIDE 106 mmol/L (98-107); GLUCOSE 127 mg/dL (75-110); POTASSIUM 3.5 mmol/L (3.6-5.0); SODIUM 135.4 mmol/L (137-145)
[2018-07-10] MEDS: ACETAMINOPHEN 325 MG TABLET PO PRN (18:22)
[2018-07-10] MEDS ORDERED: POTASSIUM CHLORIDE 10 MEQ CAPSULE.ER PO ONE (19:00)
[2018-07-11] MEDS ORDERED: METOPROLOL TARTRATE PF/INJ 5 MG/5 ML SDV IV ONE (03:00)
[2018-07-11] MEDS: NORMAL SALINE 1000 ML 1,000 ML IV PRN ×2 (04:18→12:28)
[2018-07-11] MEDS: HEPARIN SOD (PORCINE) 5,000 UNIT/ML 1 ML SYRINGE SUBCUT SCH ×3 (06:05→21:51)
[2018-07-11] MEDS: LANSOPRAZOLE 15 MG TAB.RAP.DR PO SCH (06:05)
[2018-07-11] MEDS: PIPERACILLIN SODIUM/TAZOBACTAM 3.375 GM in NORMAL SALINE 100 ML IV SCH (06:06)
[2018-07-11 06:31] LABS: ARTERIAL BLOOD BASE EXCESS -9.1 mmol/L; ARTERIAL BLOOD FIO2 ROOM AIR; ARTERIAL BLOOD H2CO3 1.02 mmol/L (1.05-1.35); ARTERIAL BLOOD HCO3 16.4 mmol/L (20-24); ARTERIAL BLOOD O2 SATURATION 96.8 % (94-98); ARTERIAL BLOOD PCO2 33.8 mmHg (35-45); ARTERIAL BLOOD TOTAL CO2 17.4 mmol/L (21-25)
[2018-07-11] MEDS: DEXTROSE 5%-WATER 1000 ML 1,000 ML with SODIUM BICARBONATE 150 MEQ IV PRN ×2 (07:42)
[2018-07-11] MEDS: INSULIN LISPRO 100 UNIT/ML 3 ML VIAL SUBCUT PRN ×3 (08:21→23:44)
[2018-07-11] MEDS: METOPROLOL TARTRATE 100 MG TABLET PO SCH ×2 (09:01→21:52)
[2018-07-11] MEDS: ASPIRIN 81 MG TABLET, ENT COATED PO SCH (09:01)
[2018-07-11] MEDS: OXYCODONE HCL SR 40 MG TABLET PO SCH ×2 (09:01→21:51)
[2018-07-11] MEDS: DULOXETINE HCL 30 MG CAPSULE.DR PO SCH ×2 (09:01→21:52)
[2018-07-11] MEDS: SENNOSIDES/DOCUSATE 8.6-50 MG 1 EACH TABLET PO SCH (09:02)
--- NOTE | 2018-07-11 10:00 | PDOC PROGRESS REPORT ---
Subjective Reason For Visit: SEVERE SEPSIS,BACK ABSCESS Physical Exam Vital Signs: Temp Pulse Resp BP Pulse Ox 97.9 F 117 H 17 121/69 99 07/11/18 07:43 07/11/18 07:43 07/11/18 07:43 07/11/18 07:43 07/11/18 07:43 Intake & Output 07/10/18 07/11/18 07/12/18 06:59 06:59 06:59 Intake Total 5508 7580 100 Output Total 1525 0 Balance 3983 7580 100 Weight 133.2 kg 133 kg Results Laboratory Results: 07/10/18 05:08 07/10/18 17:24 07/10/18 07/11/18 17:24 06:20 Carbonic Acid 1.02 L HCO3/H2CO3 Ratio 16:1 ABG pH 7.30 L ABG pCO2 33.8 L ABG pO2 96.0 ABG HCO3 16.4 L ABG O2 Saturation 96.8 ABG Base Excess -9.1 FiO2 ROOM AIR Sodium 135.4 L Potassium 3.5 L Chloride 106 Carbon Dioxide 13 L Anion Gap 16 BUN 37 H Creatinine 3.24 H Est GFR ( Amer) 18 L Est GFR (Non-Af Amer) 15 L Glucose 127 H Calcium 8.0 L 07/08/18 19:28 Clean Catch Midstream Urine Culture - Final Yeast, Not Patti Albicans 07/09/18 07/10/18 18:20 05:08 Creatine Kinase 44 48 Impressions: Renal Ultrasound 07/08/18 00:00 IMPRESSION: Morbid obesity. Very limited visualization of the kidneys with ultrasound. No gross hydronephrosis Abdomen/Pelvis CT 07/09/18 00:00 IMPRESSION: NO SIGNIFICANT OR ACUTE PROCESS IN THE ABDOMEN OR PELVIS. Chest X-Ray 07/10/18 06:00 IMPRESSION: Abnormal soft tissue gas is seen over the left supraclavicular and axillary region. Otherwise unremarkable study Assessment & Plan - Diagnosis (1) Abscess Is this a current diagnosis for this admission?: Yes - Plan Summary Plan Summary: This is a 53-year-old female status post incision and drainage of a back abscess. I have changed the packing today. There is still fibrino-purulent discharge. Damp to dry dressing changes twice daily. Continue antibiotics.
[2018-07-11 11:02] LABS: ALANINE AMINOTRANSFERASE 23 U/L (9-52); ALBUMIN 3.1 g/dL (3.5-5.0); ALKALINE PHOSPHATASE 104 U/L (38-126); ANION GAP 16 (5-19); ASPARTATE AMINO TRANSFERASE 20 U/L (14-36); BILIRUBIN,DIRECT 0.4 mg/dL (0.0-0.4); BILIRUBIN,TOTAL 0.4 mg/dL (0.2-1.3); BLOOD UREA NITROGEN 34 mg/dL (7-20); CALCIUM 8.1 mg/dL (8.4-10.2); CARBON DIOXIDE 14 mmol/L (22-30); CHLORIDE 105 mmol/L (98-107); GLUCOSE 166 mg/dL (75-110); POTASSIUM 3.7 mmol/L (3.6-5.0); SODIUM 134.6 mmol/L (137-145); TOTAL PROTEIN 6.3 g/dL (6.3-8.2)
[2018-07-11 11:06] LABS: ABSOLUTE BASOPHILS # (AUTO) 0.1 10^3/uL (0.0-0.2); ABSOLUTE EOSINOPHILS # (AUTO) 0.2 10^3/uL (0.0-0.6); ABSOLUTE LYMPHOCYTES (AUTO) 1.4 10^3/uL (0.5-4.7); ABSOLUTE MONOCYTES (AUTO) 0.9 10^3/uL (0.1-1.4); ABSOLUTE NEUT (AUTO) 7.3 10^3/uL (1.7-8.2); BASOPHILS % (AUTO) 0.8 % (0-2); EOSINOPHILS % (AUTO) 2.2 % (0-6); HEMATOCRIT 19.4 % (36.0-47.0); LYMPHOCYTES % (AUTO) 14.1 % (13-45); MEAN CORPUSCULAR HEMOGLOBIN 29.2 pg (27.0-33.4); MEAN CORPUSCULAR HGB CONC 33.7 g/dL (32.0-36.0); MEAN CORPUSCULAR VOLUME 87 fl (80-97); MONOCYTES % (AUTO) 8.8 % (3-13); PLATELET COUNT 497 10^3/uL (150-450); RED BLOOD COUNT 2.24 10^6/uL (3.72-5.28); SEGMENTED NEUTROPHILS % (AUTO) 74.1 % (42-78); TOTAL CELLS COUNTED % (AUTO) 100 %; WHITE BLOOD COUNT 9.9 10^3/uL (4.0-10.5)
[2018-07-11 11:12] LABS: HEMOGLOBIN 6.5 g/dL (12.0-15.5)
--- NOTE | 2018-07-11 12:55 | PDOC PROGRESS REPORT ---
Subjective Progress Note for:: 07/11/18 Subjective:: This is a 53-year-old female who was admitted for severe sepsis secondary to a large back abscess which was initially drained in the ER upon admission, status post I&D 07/09/2018. Patient came in with severe metabolic acidosis likely from severe sepsis and acute on chronic renal failure. She was persistently having severe metabolic acidosis and was eventually started on bicarb drip 07/10/2018. Patient states she has multiple family members who has had abscesses caused by MRSA. Acute events overnight patient states she is feeling better than yesterday. She denies fever, chills, shortness of breath, chest pain, abdominal pain, nausea, vomiting, diarrhea, constipation, or any urinary symptoms Reason For Visit: SEVERE SEPSIS,BACK ABSCESS Physical Exam Vital Signs: Temp Pulse Resp BP Pulse Ox 97.2 F 91 18 91/53 L 95 07/11/18 11:13 07/11/18 11:13 07/11/18 11:13 07/11/18 11:13 07/11/18 11:13 Intake & Output 07/10/18 07/11/18 07/12/18 06:59 06:59 06:59 Intake Total 5508 7580 100 Output Total 1525 0 Balance 3983 7580 100 Weight 133.2 kg 133 kg General appearance: PRESENT: no acute distress, morbidly obese, well-developed, well-nourished Head exam: PRESENT: atraumatic, normocephalic Eye exam: PRESENT: conjunctiva pink, EOMI, PERRLA. ABSENT: scleral icterus Ear exam: PRESENT: normal external ear exam Mouth exam: PRESENT: moist, tongue midline Neck exam: ABSENT: carotid bruit, JVD, lymphadenopathy, thyromegaly Respiratory exam: PRESENT: clear to auscultation so. ABSENT: rales, rhonchi, wheezes Cardiovascular exam: PRESENT: RRR. ABSENT: diastolic murmur, rubs, systolic murmur Pulses: PRESENT: normal dorsalis pedis pul Vascular exam: PRESENT: normal capillary refill GI/Abdominal exam: PRESENT: normal bowel sounds, soft. ABSENT: distended, guarding, mass, organolmegaly, rebound, tenderness Rectal exam: PRESENT: deferred Extremities exam: PRESENT: full ROM. ABSENT: calf tenderness, clubbing, pedal edema Musculoskeletal exam: PRESENT: other - Status post I&D of right upper back abscess. Dressing intact. No tenderness. Surgery following Neurological exam: PRESENT: alert, awake, oriented to person, oriented to place , oriented to time, oriented to situation, CN II-XII grossly intact. ABSENT: motor sensory deficit Psychiatric exam: PRESENT: appropriate affect, normal mood. ABSENT: homicidal ideation, suicidal ideation Skin exam: PRESENT: dry, intact, warm. ABSENT: cyanosis, rash Results Laboratory Results: 07/11/18 09:55 07/11/18 09:55 07/09/18 07/10/18 07/11/18 14:06 17:24 06:20 WBC RBC Hgb Hct MCV MCH MCHC RDW Plt Count Seg Neutrophils % Lymphocytes % Monocytes % Eosinophils % Basophils % Absolute Neutrophils Absolute Lymphocytes Absolute Monocytes Absolute Eosinophils Absolute Basophils Carbonic Acid 1.02 L HCO3/H2CO3 Ratio 16:1 ABG pH 7.30 L ABG pCO2 33.8 L ABG pO2 96.0 ABG HCO3 16.4 L ABG O2 Saturation 96.8 ABG Base Excess -9.1 FiO2 ROOM AIR Sodium 135.4 L Potassium 3.5 L Chloride 106 Carbon Dioxide 13 L Anion Gap 16 BUN 37 H Creatinine 3.24 H Est GFR ( Amer) 18 L Est GFR (Non-Af Amer) 15 L Glucose 127 H Calcium 8.0 L Total Bilirubin AST ALT Alkaline Phosphatase Total Protein Albumin Blood Type O POSITIVE Antibody Screen NEGATIVE 07/11/18 07/11/18 09:55 09:55 WBC 9.9 RBC 2.24 L Hgb 6.5 L Hct 19.4 L MCV 87 MCH 29.2 MCHC 33.7 RDW 15.0 H Plt Count 497 H Seg Neutrophils % 74.1 Lymphocytes % 14.1 Monocytes % 8.8 Eosinophils % 2.2 Basophils % 0.8 Absolute Neutrophils 7.3 Absolute Lymphocytes 1.4 Absolute Monocytes 0.9 Absolute Eosinophils 0.2 Absolute Basophils 0.1 Carbonic Acid HCO3/H2CO3 Ratio ABG pH ABG pCO2 ABG pO2 ABG HCO3 ABG O2 Saturation ABG Base Excess FiO2 Sodium 134.6 L Potassium 3.7 Chloride 105 Carbon Dioxide 14 L Anion Gap 16 BUN 34 H Creatinine 2.86 H Est GFR ( Amer) 21 L Est GFR (Non-Af Amer) 17 L Glucose 166 H Calcium 8.1 L Total Bilirubin 0.4 AST 20 ALT 23 Alkaline Phosphatase 104 Total Protein 6.3 Albumin 3.1 L Blood Type Antibody Screen 07/08/18 19:28 Clean Catch Midstream Urine Culture - Final Yeast, Not Patti Albicans 07/09/18 07/10/18 18:20 05:08 Creatine Kinase 44 48 Impressions: Renal Ultrasound 07/08/18 00:00 IMPRESSION: Morbid obesity. Very limited visualization of the kidneys with ultrasound. No gross hydronephrosis Abdomen/Pelvis CT 07/09/18 00:00 IMPRESSION: NO SIGNIFICANT OR ACUTE PROCESS IN THE ABDOMEN OR PELVIS. Chest X-Ray 07/10/18 06:00 IMPRESSION: Abnormal soft tissue gas is seen over the left supraclavicular and axillary region. Otherwise unremarkable study Assessment & Plan - Diagnosis (1) Sepsis Is this a current diagnosis for this admission?: Yes Plan: Improving. Sepsis is likely secondary to a large left upper back abscess. Culture from the abscess grew MRSA. Blood culture positive for staph epidermidis. Patient has received a total of 5 L of fluid bolus. Vancomycin was switched to daptomycin on 07/09/18 due to worsening renal functions. Baseline CPK has been obtained prior to daptomycin administration. DC [employer] today (2) Staphylococcus epidermidis bacteremia Is this a current diagnosis for this admission?: Yes Plan: Continue daptomycin. Pending ID recommendations. (3) Abscess Is this a current diagnosis for this admission?: Yes Plan: Status post I&D on 07/09/2018. Cultures growing MRSA. Continue daptomycin. Pending nasal swab for staph aureus. Positive will start decolonization with mupirocin. Surgery on board (4) High anion gap metabolic acidosis Is this a current diagnosis for this admission?: Yes Plan: Improving pH 7.3 anion gap 16. This is likely secondary to severe sepsis and acute on chronic renal failure. Continue bicarb drip. ABG tomorrow. Continue treatment for underlying sepsis. (5) Acute renal failure Is this a current diagnosis for this admission?: Yes Plan: Creatinine improving electrolytes within normal limits. Baseline creatinine of 1.3-1.4. FENA is 0.4% which suggest pre renal IVORY. But this is likely more of a combination of pre renal IVORY from dehydration, severe sepsis and septic ATN. Imaging has ruled out obstructive uropathy. Continue IV fluids and antibiotics for sepsis and. Currently on bicarb drip. Nephrology following. CMP tomorrow (6) Chronic kidney disease, stage 3 Is this a current diagnosis for this admission?: Yes Plan: Possibly from chronic hypertension and diabetes mellitus. We will continue to closely monitor monitor renal functions. Nephrology following (7) Diabetes mellitus Qualifiers: Diabetes mellitus type: type 2 Is this a current diagnosis for this admission?: Yes Plan: Hemoglobin A1c is 7.3. Continue to monitor blood sugars. Continue sliding scale. Diabetic diet. 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 Her was recently discharged from [facility] for MRSA related infection of the thigh and reportedly had a recent debridement of the thigh. MRSA surveillance pending. Patient will likely need decolonization. Will consult ID for further recommendations. (9) Thrombocytosis Is this a current diagnosis for this admission?: Yes Plan: Likely due to underlying sepsis. Improving. (10) Anemia Is this a current diagnosis for this admission?: Yes Plan: Likely hemodiluted. Patient has 6 L of IV fluids since admission. Admission hemoglobin 10.3 which suggest that patient may have had chronic anemia due to her underlying kidney disease. Pending guaiac and iron panel vitamin B12 and folic acid levels. Transfuse 1 PRBC, H&H 2 hours post transfusion. CBC tomorrow
[2018-07-11] MEDS: ACETAMINOPHEN 325 MG TABLET PO PRN (14:35)
[2018-07-11] MEDS ORDERED: NORMAL SALINE 500 ML IV ONE (15:15)
--- NOTE | 2018-07-11 16:29 | PDOC PROGRESS REPORT ---
Subjective Progress Note for:: 07/11/18 Subjective:: patient was sitting up in bed at the time of examination. Hemoglobin is rapidly dropping and she is set to have a blood transfusion. She denies blood in her stool or dark tarry stools. At the time she denied chest pain or SOB. Reason For Visit: SEVERE SEPSIS,BACK ABSCESS Physical Exam Vital Signs: Temp Pulse Resp BP Pulse Ox 98.2 F 83 20 104/58 L 100 07/11/18 15:45 07/11/18 15:45 07/11/18 15:45 07/11/18 15:45 07/11/18 15:45 Intake & Output 07/10/18 07/11/18 07/12/18 06:59 06:59 06:59 Intake Total 5508 7580 1175 Output Total 1525 0 Balance 3983 7580 1175 Weight 133.2 kg 133 kg General appearance: PRESENT: no acute distress, well-developed, well-nourished Mouth exam: PRESENT: moist, neck supple Neck exam: PRESENT: full ROM. ABSENT: JVD Respiratory exam: PRESENT: clear to auscultation so. ABSENT: accessory muscle use, crackles, rales, stridor, wheezes Cardiovascular exam: PRESENT: RRR, +S1, +S2 GI/Abdominal exam: PRESENT: normal bowel sounds, soft. ABSENT: tenderness Extremities exam: ABSENT: pedal edema, tenderness, +1 edema, +2 edema Musculoskeletal exam: PRESENT: normal inspection. ABSENT: tenderness Neurological exam: PRESENT: alert, awake, oriented to person, oriented to place , oriented to time, oriented to situation Psychiatric exam: PRESENT: appropriate affect, normal mood Skin exam: PRESENT: dry, erythema, intact, warm Results Laboratory Results: 07/11/18 09:55 07/11/18 09:55 07/09/18 07/10/18 07/11/18 14:06 17:24 06:20 WBC RBC Hgb Hct MCV MCH MCHC RDW Plt Count Seg Neutrophils % Lymphocytes % Monocytes % Eosinophils % Basophils % Absolute Neutrophils Absolute Lymphocytes Absolute Monocytes Absolute Eosinophils Absolute Basophils Carbonic Acid 1.02 L HCO3/H2CO3 Ratio 16:1 ABG pH 7.30 L ABG pCO2 33.8 L ABG pO2 96.0 ABG HCO3 16.4 L ABG O2 Saturation 96.8 ABG Base Excess -9.1 FiO2 ROOM AIR Sodium 135.4 L Potassium 3.5 L Chloride 106 Carbon Dioxide 13 L Anion Gap 16 BUN 37 H Creatinine 3.24 H Est GFR ( Amer) 18 L Est GFR (Non-Af Amer) 15 L Glucose 127 H Calcium 8.0 L Total Bilirubin AST ALT Alkaline Phosphatase Total Protein Albumin Blood Type O POSITIVE Antibody Screen NEGATIVE 07/11/18 07/11/18 09:55 09:55 WBC 9.9 RBC 2.24 L Hgb 6.5 L Hct 19.4 L MCV 87 MCH 29.2 MCHC 33.7 RDW 15.0 H Plt Count 497 H Seg Neutrophils % 74.1 Lymphocytes % 14.1 Monocytes % 8.8 Eosinophils % 2.2 Basophils % 0.8 Absolute Neutrophils 7.3 Absolute Lymphocytes 1.4 Absolute Monocytes 0.9 Absolute Eosinophils 0.2 Absolute Basophils 0.1 Carbonic Acid HCO3/H2CO3 Ratio ABG pH ABG pCO2 ABG pO2 ABG HCO3 ABG O2 Saturation ABG Base Excess FiO2 Sodium 134.6 L Potassium 3.7 Chloride 105 Carbon Dioxide 14 L Anion Gap 16 BUN 34 H Creatinine 2.86 H Est GFR ( Amer) 21 L Est GFR (Non-Af Amer) 17 L Glucose 166 H Calcium 8.1 L Total Bilirubin 0.4 AST 20 ALT 23 Alkaline Phosphatase 104 Total Protein 6.3 Albumin 3.1 L Blood Type Antibody Screen 07/08/18 19:28 Clean Catch Midstream Urine Culture - Final Yeast, Not Patti Albicans 07/09/18 07/10/18 18:20 05:08 Creatine Kinase 44 48 Impressions: Renal Ultrasound 07/08/18 00:00 IMPRESSION: Morbid obesity. Very limited visualization of the kidneys with ultrasound. No gross hydronephrosis Abdomen/Pelvis CT 07/09/18 00:00 IMPRESSION: NO SIGNIFICANT OR ACUTE PROCESS IN THE ABDOMEN OR PELVIS. Chest X-Ray 07/10/18 06:00 IMPRESSION: Abnormal soft tissue gas is seen over the left supraclavicular and axillary region. Otherwise unremarkable study Assessment & Plan - Diagnosis (1) Acute renal failure Is this a current diagnosis for this admission?: Yes Plan: continuing normal saline at current rate, patient had slight improvement in her creatinine. Also continue bicarb at current rate. No indication for TRANSPLANT IMMUNOLOGIST. (2) Abscess Is this a current diagnosis for this admission?: Yes Plan: currently being treated with clindamycin (3) Anemia Is this a current diagnosis for this admission?: Yes Plan: per hospitalist services (4) High anion gap metabolic acidosis Is this a current diagnosis for this admission?: Yes Plan: continue bicarb drip at current rate, currently trending up. (5) Chronic kidney disease, stage 3 Is this a current diagnosis for this admission?: Yes Plan: continue with IV fluids, baseline is 1.3 to 1.4 (6) Diabetes mellitus Qualifiers: Diabetes mellitus type: type 2 Is this a current diagnosis for this admission?: Yes (7) MRSA (methicillin resistant Staphylococcus aureus) Is this a current diagnosis for this admission?: Yes Plan: on clindamycin - Notes Notes: case was discussed with Dr. Leggett
[2018-07-11] MEDS ORDERED: DAPTOMYCIN 500 MG in NORMAL SALINE 50 ML IV SCH (18:00)
--- NOTE | 2018-07-11 18:04 | Progress Note ---
Provider Note Provider Note: ID Consult Note Asked to review patient's chart and discussed via telephone with Dr Rocha. Pt not seen or examined. Ms. Rhodes is a 53 year old woman with morbid obesity, DM, HTN, COPD, and CKD who was admitted on 07/08/18 for skin abscess that developed on her back between her shoulder blades, associated with fevers, chills and malaise at home. This began as two pimple-like lesions that coalesced to form a big lump, became tender and started to drain pus. Pt was noted to be febrile, tachycardic and hypotensive per EMS. On presentation to [facility] pt was afebrile. On ED provider's exam, she had large erythematous fluctuant region L side of back overlying scapula and extending medially with active drainage, which was incised at bedside with return of purulent material and some necrotic fatty tissue encountered. A culture from the wound was sent, which grew 4+ MRSA (sensitive to clindamycin, daptomycin, vancomycin, Bactrim, tetracycline). Her labs revealed leukocytosis of 20k initially with reactive thrombocytosis and elevated serum creatinine of around 2.1. Blood cultures drawn on admission ultimately yielded no growth from 1 set (x3 days) and Staphylococcus epidermidis from the other set. Pt was seen in consultation by Surgery and taken to the OR for adequate source control with excisional debridement of the large subcutaneous back abscess on 07/09/18. Empiric vancomycin and Zosyn was changed in light of culture results and worsening IVORY to daptomycin IV on 07/09/18. Pt has some fibrino-purulent discharge on wound change but endorses improvement overall. WBC count has normalized. Creatinine continues to be elevated at 2.9 but improved from the day prior. She has had no recurrent fever. Impression/Recommendations 1. large skin/subcutaneous abscess due to MRSA, s/p I&D - continue IV daptomycin; if creatinine clearance improves to >30, adjust frequency from q48h to daily - duration of therapy should be individualized depending on severity of infection, adequacy of drainage/debridement and overall response to treatment; generally, duration of antibiotics is in the range of 5-10 days, consider up to 14 days if extensive and slow response. - transition to PO antibiotics when pt has improved and is ready for discharge home is acceptable as pt has no MRSA bacteremia, only skin/soft tissue infection - Options for PO transition when pt is ready for discharge include Bactrim ( consult Pharmacy for renal dose adjustment based on creatinine when ready for discharge home) or clindamycin (suggest higher end of dosing range considering patient's obesity, such as 450 mg TID or QID clindamycin PO) - Pt has hx of prior purulent skin infections with MRSA documented over the years. Although the nose is the highest colonization site, Sometimes patients can be colonized at other sites (e.g. axilla or groin) or only intermittently have nasal colonization. Sensitivity of culture is lower than that of PCR and potentially could be hampered also by antibiotic therapy that started the day prior to culture. How effective is decolonization in real life over the moth exterminator (vs in hospital, preoperative) is not well established, but considering that the patient and her have had recurrent MRSA skin/soft tissue infections, I think that standard decolonization methods (involving mupirocin BID intranasal ointment topically and concurrent daily CHG washes for 5-7 days) could be considered to try to reduce future risk. Household contacts like pt's should also also attempt decolonization with the patient if this is attempted to try to avoid spread within the family. 2. Pseudobacteremia with Staphylococcus epidermidis - Growth from a single set of blood cultures drawn emergently in pt whose presentation with sepsis is entirely explained by large MRSA skin/soft tissue infection. Pt lacks endovascular/cardiac device, indwelling CVL or prosthetic valve to suggest greater risk for true infection. She lacks repeated isolation of the organism to suggest true bacteremia. Coagulase negative Staph are frequent skin contaminants of blood cultures and clinically the scenario is not consistent with true bacteremia with this organism. - This is likely contamination rather than actual bloodstream infection. No intervention required. Constantin Hyatt MD [facility] Infectious Diseases pager [phone]
[2018-07-11 19:18] LABS: ARTERIAL BLOOD BASE EXCESS -8.3 mmol/L; ARTERIAL BLOOD H2CO3 1.08 mmol/L (1.05-1.35); ARTERIAL BLOOD HCO3 17.3 mmol/L (20-24); ARTERIAL BLOOD O2 SATURATION 98.1 % (94-98); ARTERIAL BLOOD PCO2 35.8 mmHg (35-45); ARTERIAL BLOOD PO2 122.9 mmHg (80-100); ARTERIAL BLOOD TOTAL CO2 18.4 mmol/L (21-25)
[2018-07-11 19:20] LABS: ARTERIAL BLOOD FIO2 ROOM AIR
[2018-07-11 20:17] LABS: HEMATOCRIT 22.1 % (36.0-47.0); MEAN CORPUSCULAR HGB CONC 33.9 g/dL (32.0-36.0); MEAN CORPUSCULAR VOLUME 85 fl (80-97); PLATELET COUNT 512 10^3/uL (150-450); RED BLOOD COUNT 2.59 10^6/uL (3.72-5.28); RED CELL DISTRIBUTION WIDTH 14.5 % (11.5-14.0); WHITE BLOOD COUNT 6.9 10^3/uL (4.0-10.5)
[2018-07-11 20:24] LABS: HEMOGLOBIN 7.5 g/dL (12.0-15.5)
[2018-07-12] MEDS: DEXTROSE 5%-WATER 1000 ML 1,000 ML with SODIUM BICARBONATE 150 MEQ IV PRN ×2 (02:43)
[2018-07-12 03:56] LABS: ABSOLUTE BASOPHILS # (AUTO) 0.1 10^3/uL (0.0-0.2); ABSOLUTE EOSINOPHILS # (AUTO) 0.2 10^3/uL (0.0-0.6); ABSOLUTE LYMPHOCYTES (AUTO) 1.8 10^3/uL (0.5-4.7); ABSOLUTE MONOCYTES (AUTO) 0.8 10^3/uL (0.1-1.4); ABSOLUTE NEUT (AUTO) 5.4 10^3/uL (1.7-8.2); BASOPHILS % (AUTO) 0.9 % (0-2); EOSINOPHILS % (AUTO) 2.9 % (0-6); HEMATOCRIT 25.5 % (36.0-47.0); HEMOGLOBIN 8.5 g/dL (12.0-15.5); MEAN CORPUSCULAR HEMOGLOBIN 29.1 pg (27.0-33.4); MEAN CORPUSCULAR HGB CONC 33.4 g/dL (32.0-36.0); MEAN CORPUSCULAR VOLUME 87 fl (80-97); MONOCYTES % (AUTO) 9.8 % (3-13); PLATELET COUNT 544 10^3/uL (150-450); RED BLOOD COUNT 2.93 10^6/uL (3.72-5.28); SEGMENTED NEUTROPHILS % (AUTO) 64.4 % (42-78); TOTAL CELLS COUNTED % (AUTO) 100 %; WHITE BLOOD COUNT 8.4 10^3/uL (4.0-10.5)
[2018-07-12] MEDS: ACETAMINOPHEN 325 MG TABLET PO PRN ×2 (04:24→21:18)
[2018-07-12] MEDS: HEPARIN SOD (PORCINE) 5,000 UNIT/ML 1 ML SYRINGE SUBCUT SCH ×3 (05:06→21:18)
[2018-07-12] MEDS: LANSOPRAZOLE 15 MG TAB.RAP.DR PO SCH (05:07)
[2018-07-12] MEDS: OXYCODONE HCL SR 40 MG TABLET PO SCH (10:10)
[2018-07-12] MEDS: ASPIRIN 81 MG TABLET, ENT COATED PO SCH (10:10)
[2018-07-12] MEDS: DULOXETINE HCL 30 MG CAPSULE.DR PO SCH ×2 (10:10→21:19)
[2018-07-12] MEDS: SENNOSIDES/DOCUSATE 8.6-50 MG 1 EACH TABLET PO SCH (10:11)
[2018-07-12] MEDS: METOPROLOL TARTRATE 100 MG TABLET PO SCH ×2 (10:15→21:19)
[2018-07-12] MEDS: NORMAL SALINE 1000 ML 1,000 ML IV PRN (10:15)
--- NOTE | 2018-07-12 11:08 | XCELERA REPORT ---
[address] [address] Transthoracic Echocardiogram Report Name: REBECCA BRITT Age: 53 yrs Gender: Female : 1965 Patient Status: Inpatient Patient Location: [address] [place] [address] Study Date: 07/11/2018 09:04 AM Procedure: A complete two-dimensional transthoracic echocardiogram was performed (2D, M-mode, spectral and color flow Doppler). The study was technically difficult with many images being suboptimal in quality. Reason For Study: chronic SOB Ordering Physician: JANINE MCCARTHY Performed By: Belgica Uribe Interpretation Summary The study was technically difficult with many images being suboptimal in quality. The left ventricular ejection fraction is preserved. Consider additional methods to assess LVEF such as MUGA scan, CTA heart, cardiac MRI, KELLEY, etc. if clinically indicated. There is mild concentric left ventricular hypertrophy. The left ventricle is grossly normal size. LV diastolic function could not be adequately assessed. Right ventricular function cannot be assessed due to poor image quality. The left atrium is mildly dilated. The right atrium is normal in size There is a trace amount of mitral regurgitation There is no mitral valve stenosis. No aortic regurgitation is present. There is no aortic valve stenosis The aortic root is not well visualized. The inferior vena cava was not well visualized Minimal pericardial effusion. Consider alternative methods to evaluate LVEF such as MUGA scan, cardiac MRI, or cardiac CTA. MMode/2D Measurements & Calculations RVDd: 3.6 cm LVIDd: 5.4 cm FS: 37.7 % Ao root diam: 3.2 cm IVSd: 1.1 cm LVIDs: 3.4 cm EDV(Teich): 142.1 ml Ao root area: 8.2 cm2 LVPWd: 1.0 cm ESV(Teich): 46.5 ml EF(Teich): 67.3 % Doppler Measurements & Calculations Ao V2 max: 191.5 cm/sec LV V1 max P.8 mmHg PA V2 max: 155.4 cm/sec Ao max P.7 mmHg LV V1 max: 164.1 cm/sec PA max P.7 mmHg Left Ventricle The left ventricle is grossly normal size. There is mild concentric left ventricular hypertrophy. The left ventricular ejection fraction is preserved. Consider additional methods to assess LVEF such as MUGA scan, CTA heart, cardiac MRI, KELLEY, etc. if clinically indicated. LV diastolic function could not be adequately assessed. Right Ventricle The right ventricle is grossly normal size. Right ventricular function cannot be assessed due to poor image quality. Atria The right atrium is normal in size. The left atrium is mildly dilated. Mitral Valve The mitral valve is grossly normal. There is no mitral valve stenosis. There is a trace amount of mitral regurgitation. Aortic Valve The aortic valve opens well. The aortic valve is not well visualized secondary to technical limitations. There is no aortic valve stenosis. No aortic regurgitation is present. Tricuspid Valve The tricuspid valve is not well visualized secondary to technical limitations. Pulmonic Valve The pulmonic valve is not well visualized. Great Vessels The aortic root is not well visualized. The inferior vena cava was not well visualized. Effusions Minimal pericardial effusion. Incidental Findings Consider alternative methods to evaluate LVEF such as MUGA scan, cardiac MRI, or cardiac CTA. : JANINE MCCARTHY > Linda Sarah
[2018-07-12 12:47] LABS: ANION GAP 18 (5-19); BLOOD UREA NITROGEN 29 mg/dL (7-20); CALCIUM 7.7 mg/dL (8.4-10.2); CARBON DIOXIDE 15 mmol/L (22-30); CHLORIDE 103 mmol/L (98-107); GLUCOSE 127 mg/dL (75-110); POTASSIUM 3.3 mmol/L (3.6-5.0); SODIUM 136.2 mmol/L (137-145)
[2018-07-12] MEDS ORDERED: POTASSIUM CHLORIDE 10 MEQ CAPSULE.ER PO ONE (13:33)
--- NOTE | 2018-07-12 13:44 | PDOC PROGRESS REPORT ---
Subjective Progress Note for:: 07/12/18 Subjective:: This is a 53-year-old female who was admitted for severe sepsis secondary to a large back abscess which was initially drained in the ER upon admission, status post I&D 07/09/2018. Patient came in with severe metabolic acidosis likely from severe sepsis and acute on chronic renal failure. She was persistently having severe metabolic acidosis and was eventually started on bicarb drip 07/10/2018. Patient states she has multiple family members who has had abscesses caused by MRSA. No acute events overnight yesterday patient was mildly lethargic and sleepy which could have been due to narcotics that she received for pain here. Today she is alert oriented x3 she is sitting on the bed with supplemental oxygen does not show any sign of acute distress. Denies any fever chills nausea vomiting shortness of breath chest pain diarrhea constipation or any urinary symptoms Reason For Visit: SEVERE SEPSIS,BACK ABSCESS Physical Exam Vital Signs: Temp Pulse Resp BP Pulse Ox 97.8 F 100 17 116/72 96 07/12/18 11:16 07/12/18 11:16 07/12/18 11:16 07/12/18 11:16 07/12/18 11:16 Intake & Output 07/11/18 07/12/18 07/13/18 06:59 06:59 06:59 Intake Total 7580 4825 550 Output Total 0 Balance 7580 4825 550 Weight 133 kg 144.1 kg General appearance: PRESENT: no acute distress, morbidly obese, well-developed, well-nourished Head exam: PRESENT: atraumatic, normocephalic Eye exam: PRESENT: conjunctiva pink, EOMI, PERRLA. ABSENT: scleral icterus Ear exam: PRESENT: normal external ear exam Mouth exam: PRESENT: moist, tongue midline Neck exam: ABSENT: carotid bruit, JVD, lymphadenopathy, thyromegaly Respiratory exam: PRESENT: clear to auscultation so. ABSENT: rales, rhonchi, wheezes Cardiovascular exam: PRESENT: RRR. ABSENT: diastolic murmur, rubs, systolic murmur Pulses: PRESENT: normal dorsalis pedis pul Vascular exam: PRESENT: normal capillary refill GI/Abdominal exam: PRESENT: normal bowel sounds, soft. ABSENT: distended, guarding, mass, organolmegaly, rebound, tenderness Rectal exam: PRESENT: deferred Extremities exam: PRESENT: full ROM, +1 edema. ABSENT: calf tenderness, clubbing, pedal edema Musculoskeletal exam: PRESENT: other - Right upper back abscess status post I& D. Wound looks clean no sign of active infection or drainage no tenderness to palpation. Neurological exam: PRESENT: alert, awake, oriented to person, oriented to place , oriented to time, oriented to situation, CN II-XII grossly intact. ABSENT: motor sensory deficit Psychiatric exam: PRESENT: appropriate affect, normal mood. ABSENT: homicidal ideation, suicidal ideation Skin exam: PRESENT: dry, intact, warm. ABSENT: cyanosis, rash Results Laboratory Results: 07/12/18 03:30 07/12/18 12:10 07/09/18 07/11/18 07/11/18 14:06 18:55 20:09 WBC 6.9 RBC 2.59 L Hgb 7.5 L Hct 22.1 L MCV 85 MCH 29.0 MCHC 33.9 RDW 14.5 H Plt Count 512 H Seg Neutrophils % Lymphocytes % Monocytes % Eosinophils % Basophils % Absolute Neutrophils Absolute Lymphocytes Absolute Monocytes Absolute Eosinophils Absolute Basophils Carbonic Acid 1.08 HCO3/H2CO3 Ratio 16:1 ABG pH 7.30 L ABG pCO2 35.8 ABG pO2 122.9 H ABG HCO3 17.3 L ABG O2 Saturation 98.1 H ABG Base Excess -8.3 FiO2 ROOM AIR Sodium Potassium Chloride Carbon Dioxide Anion Gap BUN Creatinine Est GFR ( Amer) Est GFR (Non-Af Amer) Glucose Calcium Blood Type O POSITIVE Antibody Screen NEGATIVE 07/12/18 07/12/18 03:30 12:10 WBC 8.4 RBC 2.93 L Hgb 8.5 L Hct 25.5 L MCV 87 MCH 29.1 MCHC 33.4 RDW 15.0 H Plt Count 544 H Seg Neutrophils % 64.4 Lymphocytes % 22.0 Monocytes % 9.8 Eosinophils % 2.9 Basophils % 0.9 Absolute Neutrophils 5.4 Absolute Lymphocytes 1.8 Absolute Monocytes 0.8 Absolute Eosinophils 0.2 Absolute Basophils 0.1 Carbonic Acid HCO3/H2CO3 Ratio ABG pH ABG pCO2 ABG pO2 ABG HCO3 ABG O2 Saturation ABG Base Excess FiO2 Sodium 136.2 L Potassium 3.3 L Chloride 103 Carbon Dioxide 15 L Anion Gap 18 BUN 29 H Creatinine 2.56 H Est GFR ( Amer) 24 L Est GFR (Non-Af Amer) 19 L Glucose 127 H Calcium 7.7 L Blood Type Antibody Screen 07/09/18 19:15 Nasophary (Mrsa Only) MRSA Surveillance Culture - Final MRSA RECOVERED 07/09/18 07/10/18 18:20 05:08 Creatine Kinase 44 48 Impressions: Renal Ultrasound 07/08/18 00:00 IMPRESSION: Morbid obesity. Very limited visualization of the kidneys with ultrasound. No gross hydronephrosis Abdomen/Pelvis CT 07/09/18 00:00 IMPRESSION: NO SIGNIFICANT OR ACUTE PROCESS IN THE ABDOMEN OR PELVIS. Chest X-Ray 07/10/18 06:00 IMPRESSION: Abnormal soft tissue gas is seen over the left supraclavicular and axillary region. Otherwise unremarkable study Assessment & Plan - Diagnosis (1) Sepsis Is this a current diagnosis for this admission?: Yes Plan: Improving. Sepsis is likely secondary to a large left upper back abscess. Culture from the abscess grew MRSA. Blood culture positive for staph epidermidis. Vancomycin was switched to daptomycin on 07/09/18 due to worsening renal functions. Baseline CPK has been obtained prior to daptomycin administration. Zosyn was DC'd yesterday. We will continue daptomycin and switch to p.o. once clinically appropriate. As per ID note positive blood cultures for staph epidermidis may have been a contamination. (2) Staphylococcus epidermidis bacteremia Is this a current diagnosis for this admission?: Yes Plan: Most likely contamination. Please refer to ID note (3) Abscess Is this a current diagnosis for this admission?: Yes Plan: Status post I&D on 07/09/2018. Cultures growing MRSA. Continue daptomycin. Negative nasal swab for staph aureus. We will continue decolonization with topical mupirocin over the anterior nares bilateral groin and axilla. Even though nasal swab was negative patient may still benefit from decolonization due to the fact that all her family has history of MRSA abscesses. (4) High anion gap metabolic acidosis Is this a current diagnosis for this admission?: Yes Plan: This is likely secondary to severe sepsis and acute on chronic renal failure. Continue bicarb drip. ABG tomorrow. Continue treatment for underlying sepsis. (5) Acute renal failure Is this a current diagnosis for this admission?: Yes Plan: Creatinine improving electrolytes within normal limits. Baseline creatinine of 1.3-1.4. FENA is 0.4% which suggest pre renal IVORY. But this is likely more of a combination of pre renal IVORY from dehydration, severe sepsis and septic ATN. Imaging has ruled out obstructive uropathy. Hold IV fluids to volume overload, continue bicarb drip and ntibiotics for sepsis. Currently on bicarb drip. Nephrology following. CMP tomorrow (6) Chronic kidney disease, stage 3 Is this a current diagnosis for this admission?: Yes Plan: Possibly from chronic hypertension and diabetes mellitus. We will continue to closely monitor monitor renal functions. Nephrology following (7) Diabetes mellitus Qualifiers: Diabetes mellitus type: type 2 Is this a current diagnosis for this admission?: Yes Plan: Hemoglobin A1c is 7.3. Continue to monitor blood sugars. Continue sliding scale. Diabetic diet. 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 Her was recently discharged from [facility] for MRSA related infection of the thigh and reportedly had a recent debridement of the thigh. MRSA surveillance pending. Started on mupirocin decolonization (9) Thrombocytosis Is this a current diagnosis for this admission?: Yes Plan: Likely due to underlying sepsis. CBC tomorrow (10) Anemia Is this a current diagnosis for this admission?: Yes Plan: Likely hemodiluted due to aggressive volume resuscitation for underlying sepsis. Admission hemoglobin 10.3 which suggest that patient may have had chronic anemia due to her underlying kidney disease. Hemoglobin 8.5 today. Normal iron stores, folic acid and vitamin B12 levels. Pending guaiac. CBC tomorrow. (11) Morbid obesity Is this a current diagnosis for this admission?: Yes Plan: Diet and lifestyle modification. Outpatient PCP follow-up. Patient may benefit from gastric bypass due to her BMI 56.3
--- NOTE | 2018-07-12 13:47 | PDOC PROGRESS REPORT ---
Subjective Progress Note for:: 07/12/18 Subjective:: Patient was seen today sitting in her chair. At the time she was denied chest pain, SOB, fevers, chills, n/v/d/c. She ended up receive 2L of packed red blood cells yesterday. Reason For Visit: SEVERE SEPSIS,BACK ABSCESS Physical Exam Vital Signs: Temp Pulse Resp BP Pulse Ox 97.8 F 100 17 116/72 96 07/12/18 11:16 07/12/18 11:16 07/12/18 11:16 07/12/18 11:16 07/12/18 11:16 Intake & Output 07/11/18 07/12/18 07/13/18 06:59 06:59 06:59 Intake Total 7580 4825 550 Output Total 0 Balance 7580 4825 550 Weight 133 kg 144.1 kg General appearance: PRESENT: no acute distress, well-developed, well-nourished Mouth exam: PRESENT: moist, neck supple Neck exam: PRESENT: full ROM. ABSENT: JVD Respiratory exam: PRESENT: clear to auscultation so. ABSENT: accessory muscle use, crackles, rales, rhonchi, wheezes Cardiovascular exam: PRESENT: RRR, +S1, +S2 Extremities exam: PRESENT: pedal edema - -trace+. ABSENT: +1 edema, +2 edema Musculoskeletal exam: PRESENT: normal inspection. ABSENT: tenderness Neurological exam: PRESENT: alert, awake, oriented to person, oriented to place , oriented to time, oriented to situation Psychiatric exam: PRESENT: appropriate affect, normal mood Skin exam: PRESENT: dry, intact, warm. ABSENT: cyanosis Results Laboratory Results: 07/12/18 03:30 07/12/18 12:10 07/09/18 07/11/18 07/11/18 14:06 18:55 20:09 WBC 6.9 RBC 2.59 L Hgb 7.5 L Hct 22.1 L MCV 85 MCH 29.0 MCHC 33.9 RDW 14.5 H Plt Count 512 H Seg Neutrophils % Lymphocytes % Monocytes % Eosinophils % Basophils % Absolute Neutrophils Absolute Lymphocytes Absolute Monocytes Absolute Eosinophils Absolute Basophils Carbonic Acid 1.08 HCO3/H2CO3 Ratio 16:1 ABG pH 7.30 L ABG pCO2 35.8 ABG pO2 122.9 H ABG HCO3 17.3 L ABG O2 Saturation 98.1 H ABG Base Excess -8.3 FiO2 ROOM AIR Sodium Potassium Chloride Carbon Dioxide Anion Gap BUN Creatinine Est GFR ( Amer) Est GFR (Non-Af Amer) Glucose Calcium Blood Type O POSITIVE Antibody Screen NEGATIVE 07/12/18 07/12/18 03:30 12:10 WBC 8.4 RBC 2.93 L Hgb 8.5 L Hct 25.5 L MCV 87 MCH 29.1 MCHC 33.4 RDW 15.0 H Plt Count 544 H Seg Neutrophils % 64.4 Lymphocytes % 22.0 Monocytes % 9.8 Eosinophils % 2.9 Basophils % 0.9 Absolute Neutrophils 5.4 Absolute Lymphocytes 1.8 Absolute Monocytes 0.8 Absolute Eosinophils 0.2 Absolute Basophils 0.1 Carbonic Acid HCO3/H2CO3 Ratio ABG pH ABG pCO2 ABG pO2 ABG HCO3 ABG O2 Saturation ABG Base Excess FiO2 Sodium 136.2 L Potassium 3.3 L Chloride 103 Carbon Dioxide 15 L Anion Gap 18 BUN 29 H Creatinine 2.56 H Est GFR ( Amer) 24 L Est GFR (Non-Af Amer) 19 L Glucose 127 H Calcium 7.7 L Blood Type Antibody Screen 07/09/18 19:15 Nasophary (Mrsa Only) MRSA Surveillance Culture - Final MRSA RECOVERED 07/09/18 07/10/18 18:20 05:08 Creatine Kinase 44 48 Impressions: Renal Ultrasound 07/08/18 00:00 IMPRESSION: Morbid obesity. Very limited visualization of the kidneys with ultrasound. No gross hydronephrosis Abdomen/Pelvis CT 07/09/18 00:00 IMPRESSION: NO SIGNIFICANT OR ACUTE PROCESS IN THE ABDOMEN OR PELVIS. Chest X-Ray 07/10/18 06:00 IMPRESSION: Abnormal soft tissue gas is seen over the left supraclavicular and axillary region. Otherwise unremarkable study Assessment & Plan - Diagnosis (1) Acute renal failure Is this a current diagnosis for this admission?: Yes Plan: continuing stopping normal saline to prevent fluid overload, patient had slight improvement in her creatinine. Will try transitioning to PO bicarb. 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 (2) Abscess Is this a current diagnosis for this admission?: Yes Plan: currently being treated with clindamycin (3) Anemia Is this a current diagnosis for this admission?: Yes Plan: Anemia could be due to CKD, will need to get a couple more labs before determining if Procrit is what the patient needs. If baseline is around 1.2 to 1.3 then it is less likely to be do to CKD. Recommend checking for occult blood in stool. (4) High anion gap metabolic acidosis Is this a current diagnosis for this admission?: Yes Plan: transitioning to PO bicarb (5) Chronic kidney disease, stage 3 Is this a current diagnosis for this admission?: Yes Plan: continue with oral rehydration, baseline is 1.2 to 1.3 (6) Diabetes mellitus Qualifiers: Diabetes mellitus type: type 2 Is this a current diagnosis for this admission?: Yes (7) MRSA (methicillin resistant Staphylococcus aureus) Is this a current diagnosis for this admission?: Yes Plan: on clindamycin
[2018-07-12] MEDS: SODIUM BICARBONATE 650 MG TABLET PO SCH ×2 (14:04→21:19)
[2018-07-12] MEDS: MUPIROCIN 2% OINTMENT 22 GM TP SCH (17:42)
[2018-07-12] MEDS: INSULIN LISPRO 100 UNIT/ML 3 ML VIAL SUBCUT PRN (17:43)
[2018-07-12] MEDS ORDERED: DAPTOMYCIN 500 MG in NORMAL SALINE 50 ML IV SCH (18:00)
--- NOTE | 2018-07-12 21:31 | PDOC PROGRESS REPORT ---
Subjective Progress Note for:: 07/12/18 Subjective:: pains at the operative site on the back Reason For Visit: SEVERE SEPSIS,BACK ABSCESS Physical Exam Vital Signs: Temp Pulse Resp BP Pulse Ox 97.2 F 114 H 18 121/64 100 07/12/18 19:46 07/12/18 19:46 07/12/18 19:46 07/12/18 19:46 07/12/18 19:46 Intake & Output 07/11/18 07/12/18 07/13/18 06:59 06:59 06:59 Intake Total 7580 4825 1337 Output Total 0 Balance 7580 4825 1337 Weight 133 kg 144.1 kg Exam: Dressings are intact and dry. Changed by the nurses today.Dressings were soaked with clear fluids according to nurses. Results Laboratory Results: 07/12/18 03:30 07/12/18 12:10 07/09/18 07/12/18 07/12/18 14:06 03:30 12:10 WBC 8.4 RBC 2.93 L Hgb 8.5 L Hct 25.5 L MCV 87 MCH 29.1 MCHC 33.4 RDW 15.0 H Plt Count 544 H Seg Neutrophils % 64.4 Lymphocytes % 22.0 Monocytes % 9.8 Eosinophils % 2.9 Basophils % 0.9 Absolute Neutrophils 5.4 Absolute Lymphocytes 1.8 Absolute Monocytes 0.8 Absolute Eosinophils 0.2 Absolute Basophils 0.1 Sodium 136.2 L Potassium 3.3 L Chloride 103 Carbon Dioxide 15 L Anion Gap 18 BUN 29 H Creatinine 2.56 H Est GFR ( Amer) 24 L Est GFR (Non-Af Amer) 19 L Glucose 127 H Calcium 7.7 L Blood Type O POSITIVE Antibody Screen NEGATIVE 07/09/18 19:15 Nasophary (Mrsa Only) MRSA Surveillance Culture - Final MRSA RECOVERED 07/09/18 07/10/18 18:20 05:08 Creatine Kinase 44 48 Impressions: Renal Ultrasound 07/08/18 00:00 IMPRESSION: Morbid obesity. Very limited visualization of the kidneys with ultrasound. No gross hydronephrosis Abdomen/Pelvis CT 07/09/18 00:00 IMPRESSION: NO SIGNIFICANT OR ACUTE PROCESS IN THE ABDOMEN OR PELVIS. Chest X-Ray 07/10/18 06:00 IMPRESSION: Abnormal soft tissue gas is seen over the left supraclavicular and axillary region. Otherwise unremarkable study Assessment & Plan - Time Time Spent with patient: 15-24 minutes - Plan Summary Plan Summary: Continue IV antibiotics and BID wet to dry dressings. If drainage slows down may consider wound vac placement.
[2018-07-13] MEDS: ACETAMINOPHEN 325 MG TABLET PO PRN ×3 (03:09→20:42)
[2018-07-13 09:19] LABS: ABSOLUTE BASOPHILS # (AUTO) 0.1 10^3/uL (0.0-0.2); ABSOLUTE EOSINOPHILS # (AUTO) 0.3 10^3/uL (0.0-0.6); ABSOLUTE LYMPHOCYTES (AUTO) 1.4 10^3/uL (0.5-4.7); ABSOLUTE MONOCYTES (AUTO) 0.7 10^3/uL (0.1-1.4); ABSOLUTE NEUT (AUTO) 4.9 10^3/uL (1.7-8.2); BASOPHILS % (AUTO) 0.8 % (0-2); EOSINOPHILS % (AUTO) 4.2 % (0-6); HEMATOCRIT 24.9 % (36.0-47.0); HEMOGLOBIN 8.2 g/dL (12.0-15.5); LYMPHOCYTES % (AUTO) 19.5 % (13-45); MEAN CORPUSCULAR HEMOGLOBIN 28.2 pg (27.0-33.4); MEAN CORPUSCULAR HGB CONC 33.1 g/dL (32.0-36.0); MEAN CORPUSCULAR VOLUME 85 fl (80-97); MONOCYTES % (AUTO) 9.5 % (3-13); PLATELET COUNT 481 10^3/uL (150-450); RED BLOOD COUNT 2.92 10^6/uL (3.72-5.28); RED CELL DISTRIBUTION WIDTH 14.9 % (11.5-14.0); TOTAL CELLS COUNTED % (AUTO) 100 %; WHITE BLOOD COUNT 7.4 10^3/uL (4.0-10.5)
[2018-07-13] MEDS: LANSOPRAZOLE 15 MG TAB.RAP.DR PO SCH (09:21)
[2018-07-13] MEDS: HEPARIN SOD (PORCINE) 5,000 UNIT/ML 1 ML SYRINGE SUBCUT SCH ×3 (09:21→21:38)
[2018-07-13] MEDS: DULOXETINE HCL 30 MG CAPSULE.DR PO SCH ×2 (09:29→21:35)
[2018-07-13] MEDS: SODIUM BICARBONATE 650 MG TABLET PO SCH ×2 (09:29→21:37)
[2018-07-13] MEDS: ASPIRIN 81 MG TABLET, ENT COATED PO SCH (09:30)
[2018-07-13] MEDS: MUPIROCIN 2% OINTMENT 22 GM TP SCH ×2 (09:30→17:28)
[2018-07-13 09:31] LABS: ALANINE AMINOTRANSFERASE 28 U/L (9-52); ALBUMIN 3.2 g/dL (3.5-5.0); ALKALINE PHOSPHATASE 99 U/L (38-126); ANION GAP 13 (5-19); ASPARTATE AMINO TRANSFERASE 29 U/L (14-36); BILIRUBIN,DIRECT 0.4 mg/dL (0.0-0.4); BILIRUBIN,TOTAL 0.5 mg/dL (0.2-1.3); BLOOD UREA NITROGEN 27 mg/dL (7-20); CALCIUM 7.6 mg/dL (8.4-10.2); CARBON DIOXIDE 19 mmol/L (22-30); CHLORIDE 104 mmol/L (98-107); GLUCOSE 105 mg/dL (75-110); POTASSIUM 3.2 mmol/L (3.6-5.0); SODIUM 135.8 mmol/L (137-145); TOTAL PROTEIN 6.3 g/dL (6.3-8.2)
[2018-07-13] MEDS: SENNOSIDES/DOCUSATE 8.6-50 MG 1 EACH TABLET PO SCH (09:31)
[2018-07-13] MEDS: METOPROLOL TARTRATE 100 MG TABLET PO SCH ×2 (09:31→21:36)
[2018-07-13 10:00] LABS: ARTERIAL BLOOD BASE EXCESS -5.9 mmol/L; ARTERIAL BLOOD H2CO3 1.13 mmol/L (1.05-1.35); ARTERIAL BLOOD HCO3 19.4 mmol/L (20-24); ARTERIAL BLOOD O2 SATURATION 88.2 % (94-98); ARTERIAL BLOOD PCO2 37.4 mmHg (35-45); ARTERIAL BLOOD PH 7.33 (7.35-7.45); ARTERIAL BLOOD PO2 57.3 mmHg (80-100); ARTERIAL BLOOD TOTAL CO2 20.6 mmol/L (21-25)
[2018-07-13 10:02] LABS: ARTERIAL BLOOD FIO2 ROOM AIR
[2018-07-13] MEDS ORDERED: POTASSIUM CHLORIDE 10 MEQ CAPSULE.ER PO ONE (14:15)
--- NOTE | 2018-07-13 15:31 | PDOC PROGRESS REPORT ---
Subjective Progress Note for:: 07/13/18 Subjective:: Patient was found laying in bed at the time of examination. She had no complaints at the time. She denied chest pain, SOB, n/v/d/c. She has had increased urine out put. She denies blood in her stool or dark tarry stools. Reason For Visit: SEVERE SEPSIS,BACK ABSCESS Physical Exam Vital Signs: Temp Pulse Resp BP Pulse Ox 97.7 F 82 12 95/46 L 100 07/13/18 12:04 07/13/18 14:00 07/13/18 12:04 07/13/18 12:04 07/13/18 12:04 Intake & Output 07/12/18 07/13/18 07/14/18 06:59 06:59 06:59 Intake Total 4825 1337 100 Balance 4825 1337 100 Weight 144.1 kg 145.5 kg General appearance: PRESENT: no acute distress, well-developed, well-nourished Mouth exam: PRESENT: moist, neck supple Neck exam: PRESENT: full ROM. ABSENT: JVD Respiratory exam: PRESENT: clear to auscultation so. ABSENT: accessory muscle use, crackles, rales, rhonchi, wheezes Cardiovascular exam: PRESENT: RRR, +S1, +S2 GI/Abdominal exam: PRESENT: normal bowel sounds, soft. ABSENT: tenderness Extremities exam: ABSENT: pedal edema, tenderness, +1 edema, +2 edema Musculoskeletal exam: PRESENT: normal inspection. ABSENT: tenderness Neurological exam: PRESENT: alert, awake, oriented to person, oriented to place , oriented to time, oriented to situation Psychiatric exam: PRESENT: appropriate affect, normal mood Skin exam: PRESENT: dry, intact, warm. ABSENT: cyanosis Results Laboratory Results: 07/13/18 06:40 07/13/18 06:40 07/13/18 07/13/18 07/13/18 06:40 06:40 09:24 WBC 7.4 RBC 2.92 L Hgb 8.2 L Hct 24.9 L MCV 85 MCH 28.2 MCHC 33.1 RDW 14.9 H Plt Count 481 H Seg Neutrophils % 66.0 Lymphocytes % 19.5 Monocytes % 9.5 Eosinophils % 4.2 Basophils % 0.8 Absolute Neutrophils 4.9 Absolute Lymphocytes 1.4 Absolute Monocytes 0.7 Absolute Eosinophils 0.3 Absolute Basophils 0.1 Carbonic Acid 1.13 HCO3/H2CO3 Ratio 17:1 ABG pH 7.33 L ABG pCO2 37.4 ABG pO2 57.3 L ABG HCO3 19.4 L ABG O2 Saturation 88.2 L ABG Base Excess -5.9 FiO2 ROOM AIR Sodium 135.8 L Potassium 3.2 L Chloride 104 Carbon Dioxide 19 L Anion Gap 13 BUN 27 H Creatinine 2.26 H Est GFR ( Amer) 27 L Est GFR (Non-Af Amer) 22 L Glucose 105 Calcium 7.6 L Magnesium 1.3 L Total Bilirubin 0.5 AST 29 ALT 28 Alkaline Phosphatase 99 Total Protein 6.3 Albumin 3.2 L 07/09/18 19:15 Nasophary (Mrsa Only) MRSA Surveillance Culture - Final MRSA RECOVERED 07/09/18 07/10/18 18:20 05:08 Creatine Kinase 44 48 Impressions: Renal Ultrasound 07/08/18 00:00 IMPRESSION: Morbid obesity. Very limited visualization of the kidneys with ultrasound. No gross hydronephrosis Abdomen/Pelvis CT 07/09/18 00:00 IMPRESSION: NO SIGNIFICANT OR ACUTE PROCESS IN THE ABDOMEN OR PELVIS. Chest X-Ray 07/10/18 06:00 IMPRESSION: Abnormal soft tissue gas is seen over the left supraclavicular and axillary region. Otherwise unremarkable study Assessment & Plan - Diagnosis (1) Acute renal failure Is this a current diagnosis for this admission?: Yes Plan: continuing oral rehydration, patient had slight improvement in her creatinine. 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 (2) Abscess Is this a current diagnosis for this admission?: Yes Plan: on daptomycin, medication is currently properly dosed for CKD patient with a GFR less than 30. (3) Anemia Is this a current diagnosis for this admission?: Yes Plan: currently stable, awaiting labs (4) High anion gap metabolic acidosis Is this a current diagnosis for this admission?: Yes Plan: improving on PO bicarb 1300mg bid (5) Chronic kidney disease, stage 3 Is this a current diagnosis for this admission?: Yes Plan: continue with oral rehydration, baseline is 1.2 to 1.3 (6) Diabetes mellitus Qualifiers: Diabetes mellitus type: type 2 Is this a current diagnosis for this admission?: Yes (7) MRSA (methicillin resistant Staphylococcus aureus) Is this a current diagnosis for this admission?: Yes Plan: on daptomycin (8) Hypokalemia Plan: will look to place on 20mEQ of potassium BID - Notes Notes: case was discussed with Dr. Leggett
--- NOTE | 2018-07-13 15:52 | PDOC PROGRESS REPORT ---
Subjective Progress Note for:: 07/13/18 Subjective:: This is a 53-year-old female who was admitted for severe sepsis secondary to a large back abscess which was initially drained in the ER upon admission, status post I&D 07/09/2018. Patient came in with severe metabolic acidosis likely from severe sepsis and acute on chronic renal failure. She was persistently having severe metabolic acidosis and was eventually started on bicarb drip 07/10/2018. Patient states she has multiple family members who has had abscesses caused by MRSA. No acute events overnight however patient stated that she was not able to sleep overnight because of back pain. Patient has been getting Tylenol for her back pain which is not very effective. Her narcotics were On hold because it was making her too drowsy and lethargic. Otherwise she is laying in bed comfortably with no oxygen denies any shortness of breath, chest pain, nausea, vomiting, fever, chills, diarrhea, constipation or any urinary symptoms Reason For Visit: SEVERE SEPSIS,BACK ABSCESS Physical Exam Vital Signs: Temp Pulse Resp BP Pulse Ox 97.7 F 82 12 95/46 L 100 07/13/18 12:04 07/13/18 14:00 07/13/18 12:04 07/13/18 12:04 07/13/18 12:04 Intake & Output 07/12/18 07/13/18 07/14/18 06:59 06:59 06:59 Intake Total 4825 1337 100 Balance 4825 1337 100 Weight 144.1 kg 145.5 kg General appearance: PRESENT: no acute distress, morbidly obese, well-developed, well-nourished Head exam: PRESENT: atraumatic, normocephalic Eye exam: PRESENT: conjunctiva pink, EOMI, PERRLA. ABSENT: scleral icterus Ear exam: PRESENT: normal external ear exam Mouth exam: PRESENT: moist, tongue midline Neck exam: ABSENT: carotid bruit, JVD, lymphadenopathy, thyromegaly Respiratory exam: PRESENT: clear to auscultation so. ABSENT: rales, rhonchi, wheezes Cardiovascular exam: PRESENT: RRR. ABSENT: diastolic murmur, rubs, systolic murmur Pulses: PRESENT: normal dorsalis pedis pul Vascular exam: PRESENT: normal capillary refill GI/Abdominal exam: PRESENT: normal bowel sounds, soft. ABSENT: distended, guarding, mass, organolmegaly, rebound, tenderness Rectal exam: PRESENT: deferred Extremities exam: PRESENT: full ROM. ABSENT: calf tenderness, clubbing, pedal edema Musculoskeletal exam: PRESENT: other - Right upper back status post I&D wound is clean no discharge dressing is intact. Neurological exam: PRESENT: alert, awake, oriented to person, oriented to place , oriented to time, oriented to situation, CN II-XII grossly intact. ABSENT: motor sensory deficit Psychiatric exam: PRESENT: appropriate affect, normal mood. ABSENT: homicidal ideation, suicidal ideation Skin exam: PRESENT: dry, intact, warm. ABSENT: cyanosis, rash Results Laboratory Results: 07/13/18 06:40 07/13/18 06:40 07/13/18 07/13/18 07/13/18 06:40 06:40 09:24 WBC 7.4 RBC 2.92 L Hgb 8.2 L Hct 24.9 L MCV 85 MCH 28.2 MCHC 33.1 RDW 14.9 H Plt Count 481 H Seg Neutrophils % 66.0 Lymphocytes % 19.5 Monocytes % 9.5 Eosinophils % 4.2 Basophils % 0.8 Absolute Neutrophils 4.9 Absolute Lymphocytes 1.4 Absolute Monocytes 0.7 Absolute Eosinophils 0.3 Absolute Basophils 0.1 Carbonic Acid 1.13 HCO3/H2CO3 Ratio 17:1 ABG pH 7.33 L ABG pCO2 37.4 ABG pO2 57.3 L ABG HCO3 19.4 L ABG O2 Saturation 88.2 L ABG Base Excess -5.9 FiO2 ROOM AIR Sodium 135.8 L Potassium 3.2 L Chloride 104 Carbon Dioxide 19 L Anion Gap 13 BUN 27 H Creatinine 2.26 H Est GFR ( Amer) 27 L Est GFR (Non-Af Amer) 22 L Glucose 105 Calcium 7.6 L Magnesium 1.3 L Total Bilirubin 0.5 AST 29 ALT 28 Alkaline Phosphatase 99 Total Protein 6.3 Albumin 3.2 L 07/09/18 19:15 Nasophary ([facility] Only) MRSA Surveillance Culture - Final MRSA RECOVERED 07/09/18 07/10/18 18:20 05:08 Creatine Kinase 44 48 Impressions: Renal Ultrasound 07/08/18 00:00 IMPRESSION: Morbid obesity. Very limited visualization of the kidneys with ultrasound. No gross hydronephrosis Abdomen/Pelvis CT 07/09/18 00:00 IMPRESSION: NO SIGNIFICANT OR ACUTE PROCESS IN THE ABDOMEN OR PELVIS. Chest X-Ray 07/10/18 06:00 IMPRESSION: Abnormal soft tissue gas is seen over the left supraclavicular and axillary region. Otherwise unremarkable study Assessment & Plan - Diagnosis (1) Sepsis Is this a current diagnosis for this admission?: Yes Plan: Improving. Sepsis is likely secondary to a large left upper back abscess. Culture from the abscess grew MRSA. Blood culture positive for staph epidermidis. Vancomycin was switched to daptomycin on 07/09/18 due to worsening renal functions. Baseline CPK has been obtained prior to daptomycin administration. Zosyn was DC'd. We will continue daptomycin and switch to p.o. once clinically appropriate. As per ID note positive blood cultures for staph epidermidis may have been a contamination. (2) Staphylococcus epidermidis bacteremia Is this a current diagnosis for this admission?: Yes Plan: Most likely contamination. Please refer to ID note (3) Abscess Is this a current diagnosis for this admission?: Yes Plan: Status post I&D on 07/09/2018. Surgery on board considering wound VAC placement. Cultures growing MRSA. Continue daptomycin. Negative nasal swab for staph aureus. We will continue decolonization with topical mupirocin over the anterior nares bilateral groin and axilla. Even though nasal swab was negative patient may still benefit from decolonization due to the fact that all her family has history of MRSA abscesses. (4) High anion gap metabolic acidosis Is this a current diagnosis for this admission?: Yes Plan: Soft anion gap 13. DC bicarb drip. CMP tomorrow (5) Acute renal failure Is this a current diagnosis for this admission?: Yes Plan: Creatinine 2.26 from 2.56. Potassium and magnesium replaced Baseline creatinine of 1.3-1.4. FENA is 0.4% which suggest pre renal IVORY. But this is likely more of a combination of pre renal IVORY from dehydration, severe sepsis and septic ATN. Imaging has ruled out obstructive uropathy. Hold IV fluids to volume overload, continue bicarb drip and ntibiotics for sepsis. Currently on bicarb drip. Nephrology following. CMP tomorrow (6) Chronic kidney disease, stage 3 Is this a current diagnosis for this admission?: Yes Plan: Possibly from chronic hypertension and diabetes mellitus. We will continue to closely monitor monitor renal functions. Nephrology following (7) Diabetes mellitus Qualifiers: Diabetes mellitus type: type 2 Is this a current diagnosis for this admission?: Yes Plan: Hemoglobin A1c is 7.3. Continue to monitor blood sugars. Continue sliding scale. Diabetic diet. 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 [facility] and reportedly had a recent debridement of the thigh. MRSA surveillance pending. Started on mupirocin decolonization (9) Thrombocytosis Is this a current diagnosis for this admission?: Yes Plan: Improving. CBC tomorrow (10) Anemia Is this a current diagnosis for this admission?: Yes Plan: Likely hemodiluted due to aggressive volume resuscitation for underlying sepsis. Admission hemoglobin 10.3 which suggest that patient may have had chronic anemia due to her underlying kidney disease. Hemoglobin 8. Point today. Normal iron stores, folic acid and vitamin B12 levels. Pending guaiac. CBC tomorrow. (11) Morbid obesity Is this a current diagnosis for this admission?: Yes Plan: Diet and lifestyle modification. Outpatient PCP follow-up. Patient may benefit from gastric bypass due to her BMI 56.3
[2018-07-13] MEDS ORDERED: MAGNESIUM SULFATE/D5W 1 GM/100 ML RTUPB IV ONE (16:30)
[2018-07-13] MEDS: OXYCODONE-ACETAMINOPHEN 5-325 MG TABLET PO PRN ×2 (16:36→21:37)
[2018-07-13] MEDS: MAGNESIUM OXIDE 400 MG TABLET PO SCH (17:28)
[2018-07-13] MEDS: POTASSIUM CHLORIDE 10 MEQ CAPSULE.ER PO SCH (21:35)
[2018-07-14] MEDS: OXYCODONE-ACETAMINOPHEN 5-325 MG TABLET PO PRN ×3 (03:10→22:02)
[2018-07-14] MEDS ORDERED: TIZANIDINE HCL 4 MG TABLET ONE (05:03)
[2018-07-14] MEDS: LANSOPRAZOLE 15 MG TAB.RAP.DR PO SCH (05:10)
[2018-07-14] MEDS: HEPARIN SOD (PORCINE) 5,000 UNIT/ML 1 ML SYRINGE SUBCUT SCH ×3 (05:10→21:38)
[2018-07-14 05:50] LABS: HEMATOCRIT 25.4 % (36.0-47.0); HEMOGLOBIN 8.5 g/dL (12.0-15.5); MEAN CORPUSCULAR HEMOGLOBIN 29.1 pg (27.0-33.4); MEAN CORPUSCULAR HGB CONC 33.4 g/dL (32.0-36.0); MEAN CORPUSCULAR VOLUME 87 fl (80-97); PLATELET COUNT 432 10^3/uL (150-450); RED BLOOD COUNT 2.91 10^6/uL (3.72-5.28); RED CELL DISTRIBUTION WIDTH 15.2 % (11.5-14.0); WHITE BLOOD COUNT 6.9 10^3/uL (4.0-10.5)
[2018-07-14 06:16] LABS: ALANINE AMINOTRANSFERASE 21 U/L (9-52); ALBUMIN 3.2 g/dL (3.5-5.0); ALKALINE PHOSPHATASE 91 U/L (38-126); ANION GAP 9 (5-19); ASPARTATE AMINO TRANSFERASE 26 U/L (14-36); BILIRUBIN,DIRECT 0.4 mg/dL (0.0-0.4); BILIRUBIN,TOTAL 0.4 mg/dL (0.2-1.3); BLOOD UREA NITROGEN 22 mg/dL (7-20); CALCIUM 7.8 mg/dL (8.4-10.2); CARBON DIOXIDE 23 mmol/L (22-30); CHLORIDE 107 mmol/L (98-107); GLUCOSE 95 mg/dL (75-110); POTASSIUM 3.6 mmol/L (3.6-5.0); SODIUM 138.6 mmol/L (137-145); TOTAL PROTEIN 6.6 g/dL (6.3-8.2)
--- NOTE | 2018-07-14 09:34 | RADIOLOGY REPORT (SQ) ---
EXAM DESCRIPTION: CT HEAD WITHOUT COMPLETED DATE/TIME: 07/14/2018 9:25 am REASON FOR STUDY: AMS COMPARISON: None. TECHNIQUE: Axial images acquired through the brain without intravenous contrast. Images reviewed wi th bone, brain and subdural windows. Images stored on PACS. All CT scanners at this facility use dose modulation, iterative reconstruction, and/or weight based d osing when appropriate to reduce radiation dose to as low as reasonably achievable (ALARA). [facility]: Dose Right [facility]: CareDose [facility]: Dose Right [facility]: Teradose 4D [facility]: CO2Stats RADIATION DOSE: CT Rad equipment meets quality standard of care and radiation dose reduction techniq ues were employed. CTDIvol: 48.7 mGy. DLP: 1005 mGy-cm. mGy. LIMITATIONS: None. FINDINGS: VENTRICLES: Normal size and contour. CEREBRUM: No masses. No hemorrhage. No midline shift. No evidence for acute infarction. Normal gra y/white matter differentiation. No areas of low density in the white matter. CEREBELLUM: No masses. No hemorrhage. No alteration of density. No evidence for acute infarction. EXTRAAXIAL SPACES: No fluid collections. No masses. ORBITS AND GLOBE: No intra- or extraconal masses. Normal contour of globe without masses. CALVARIUM: No fracture. PARANASAL SINUSES: No fluid or mucosal thickening. SOFT TISSUES: No mass or hematoma. OTHER: No other significant finding. IMPRESSION: NORMAL BRAIN CT WITHOUT CONTRAST. EVIDENCE OF ACUTE STROKE: NO. COMMENT: Quality ID # [id number]: Final reports with documentation of one or more dose reduction techniques (e.g., Automated exposure control, adjustment of the mA and/or kV according to patient size, use of iterative reconstruction technique) TECHNICAL DOCUMENTATION: JOB ID: [id number] [employer]- All Rights Reserved Reading location - IP/workstation name: COUNT [email or web address] THE [facility]-[email or web address]
[2018-07-14 10:33] LABS: ARTERIAL BLOOD BASE EXCESS -2.9 mmol/L; ARTERIAL BLOOD H2CO3 1.12 mmol/L (1.05-1.35); ARTERIAL BLOOD HCO3 21.8 mmol/L (20-24); ARTERIAL BLOOD O2 SATURATION 96.1 % (94-98); ARTERIAL BLOOD PCO2 37.2 mmHg (35-45); ARTERIAL BLOOD PH 7.39 (7.35-7.45); ARTERIAL BLOOD PO2 82.3 mmHg (80-100)
[2018-07-14 10:37] LABS: ARTERIAL BLOOD FIO2 ROOM AIR
[2018-07-14] MEDS: SODIUM BICARBONATE 650 MG TABLET PO SCH ×2 (10:48→21:38)
[2018-07-14] MEDS: DULOXETINE HCL 30 MG CAPSULE.DR PO SCH ×2 (10:48→21:38)
[2018-07-14] MEDS: METOPROLOL TARTRATE 100 MG TABLET PO SCH ×2 (10:49→21:38)
[2018-07-14] MEDS: ASPIRIN 81 MG TABLET, ENT COATED PO SCH (10:49)
[2018-07-14] MEDS: MAGNESIUM OXIDE 400 MG TABLET PO SCH ×2 (10:49→19:00)
[2018-07-14] MEDS: MUPIROCIN 2% OINTMENT 22 GM TP SCH ×2 (10:49→19:00)
[2018-07-14] MEDS: SENNOSIDES/DOCUSATE 8.6-50 MG 1 EACH TABLET PO SCH (10:49)
[2018-07-14] MEDS: POTASSIUM CHLORIDE 10 MEQ CAPSULE.ER PO SCH ×2 (10:49→21:38)
[2018-07-14] MEDS ORDERED: MAGNESIUM SULFATE/D5W 1 GM/100 ML RTUPB IV SCH (12:00)
--- NOTE | 2018-07-14 12:19 | PDOC PROGRESS REPORT ---
Subjective Progress Note for:: 07/14/18 Subjective:: This is a 53-year-old female who was admitted for severe sepsis secondary to a large back abscess which was initially drained in the ER upon admission, status post I&D 07/09/2018. Patient came in with severe metabolic acidosis likely from severe sepsis and acute on chronic renal failure. She was persistently having severe metabolic acidosis and was eventually started on bicarb drip 07/10/2018. Patient states she has multiple family members who has had abscesses caused by MRSA. No acute events overnight, however patient has been more drowsy and lethargic. Patient is arousable and alert and oriented 3 however she says this is not herself and she feels very lethargic. She was placed on Percocet 5/325 yesterday however she says she is taking Aloxi Contin 40 mg at home which does not make her drowsy like this. ABG this morning showed an O2 O2 of 82 pH of 7.39 CO2 of 37. She says her pain is controlled better, denies any shortness of breath, fever, chills, nausea, vomiting, diarrhea, constipation, abdominal pain, urinary symptoms. Reason For Visit: SEVERE SEPSIS,BACK ABSCESS Physical Exam Vital Signs: Temp Pulse Resp BP Pulse Ox 97.3 F 80 16 110/76 100 07/14/18 07:47 07/14/18 07:47 07/14/18 07:47 07/14/18 07:47 07/14/18 07:47 Intake & Output 07/13/18 07/14/18 07/15/18 06:59 06:59 06:59 Intake Total 1337 500 Balance 1337 500 Weight 145.5 kg 143.2 kg General appearance: PRESENT: no acute distress, well-developed, well-nourished Head exam: PRESENT: atraumatic, normocephalic Eye exam: PRESENT: conjunctiva pink, EOMI, PERRLA. ABSENT: scleral icterus Ear exam: PRESENT: normal external ear exam Mouth exam: PRESENT: moist, tongue midline Neck exam: ABSENT: carotid bruit, JVD, lymphadenopathy, thyromegaly Respiratory exam: PRESENT: clear to auscultation so. ABSENT: rales, rhonchi, wheezes Cardiovascular exam: PRESENT: RRR. ABSENT: diastolic murmur, rubs, systolic murmur Pulses: PRESENT: normal dorsalis pedis pul Vascular exam: PRESENT: normal capillary refill GI/Abdominal exam: PRESENT: normal bowel sounds, soft. ABSENT: distended, guarding, mass, organolmegaly, rebound, tenderness Rectal exam: PRESENT: deferred Extremities exam: PRESENT: full ROM. ABSENT: calf tenderness, clubbing, pedal edema Musculoskeletal exam: PRESENT: other - Right upper mid back abscesses status post I&D. Wound is clean no sign of drainage or active infection Neurological exam: PRESENT: alert, awake, oriented to person, oriented to place , oriented to time, oriented to situation, CN II-XII grossly intact. ABSENT: motor sensory deficit Psychiatric exam: PRESENT: appropriate affect, normal mood. ABSENT: homicidal ideation, suicidal ideation Skin exam: PRESENT: dry, intact, warm. ABSENT: cyanosis, rash Results Laboratory Results: 07/14/18 05:29 07/14/18 05:29 07/14/18 07/14/18 07/14/18 05:29 05:29 10:21 WBC 6.9 RBC 2.91 L Hgb 8.5 L Hct 25.4 L MCV 87 MCH 29.1 MCHC 33.4 RDW 15.2 H Plt Count 432 Carbonic Acid 1.12 HCO3/H2CO3 Ratio 19:1 ABG pH 7.39 ABG pCO2 37.2 ABG pO2 82.3 ABG HCO3 21.8 ABG O2 Saturation 96.1 ABG Base Excess -2.9 FiO2 ROOM AIR Sodium 138.6 Potassium 3.6 Chloride 107 Carbon Dioxide 23 Anion Gap 9 BUN 22 H Creatinine 1.78 H Est GFR ( Amer) 36 L Est GFR (Non-Af Amer) 30 L Glucose 95 Calcium 7.8 L Magnesium 1.4 L Total Bilirubin 0.4 AST 26 ALT 21 Alkaline Phosphatase 91 Total Protein 6.6 Albumin 3.2 L 07/09/18 07/10/18 18:20 05:08 Creatine Kinase 44 48 Impressions: Renal Ultrasound 07/08/18 00:00 IMPRESSION: Morbid obesity. Very limited visualization of the kidneys with ultrasound. No gross hydronephrosis Abdomen/Pelvis CT 07/09/18 00:00 IMPRESSION: NO SIGNIFICANT OR ACUTE PROCESS IN THE ABDOMEN OR PELVIS. Chest X-Ray 07/10/18 06:00 IMPRESSION: Abnormal soft tissue gas is seen over the left supraclavicular and axillary region. Otherwise unremarkable study Head CT 07/14/18 00:00 IMPRESSION: NORMAL BRAIN CT WITHOUT CONTRAST. EVIDENCE OF ACUTE STROKE: NO. Assessment & Plan - Diagnosis (1) Sepsis Is this a current diagnosis for this admission?: Yes Plan: Improving. Sepsis is likely secondary to a large left upper back abscess. Culture from the abscess grew MRSA. Blood culture positive for staph epidermidis. Vancomycin was switched to daptomycin on 07/09/18 due to worsening renal functions. Baseline CPK has been obtained prior to daptomycin administration. Zosyn was DC'd. We will continue daptomycin and switch to p.o. once clinically appropriate. As per ID note positive blood cultures for staph epidermidis may have been a contamination. (2) Staphylococcus epidermidis bacteremia Is this a current diagnosis for this admission?: Yes Plan: Most likely contamination. Please refer to ID note (3) Abscess Is this a current diagnosis for this admission?: Yes Plan: Status post I&D on 07/09/2018. Surgery on board considering wound VAC placement. Cultures growing MRSA. Continue daptomycin. Negative nasal swab for staph aureus. We will continue decolonization with topical mupirocin over the anterior nares bilateral groin and axilla. Even though nasal swab was negative patient may still benefit from decolonization due to the fact that all her family has history of MRSA abscesses. (4) Acute renal failure Is this a current diagnosis for this admission?: Yes Plan: Creatinine 1.78 from 2.26. Magnesium replaced.. Continue daily magnesium and p.o. potassium Baseline creatinine of 1.3-1.4. FENA is 0.4% which suggest pre renal IVORY. But this is likely more of a combination of pre renal IVORY from dehydration, severe sepsis and septic ATN. Imaging has ruled out obstructive uropathy. Hold IV fluids to volume overload, continue bicarb drip and ntibiotics for sepsis. Currently on bicarb drip. Nephrology following. CMP tomorrow (5) Chronic kidney disease, stage 3 Is this a current diagnosis for this admission?: Yes Plan: Possibly from chronic hypertension and diabetes mellitus. We will continue to closely monitor monitor renal functions. Nephrology following (6) Diabetes mellitus Qualifiers: Diabetes mellitus type: type 2 Is this a current diagnosis for this admission?: Yes Plan: Hemoglobin A1c is 7.3. Continue to monitor blood sugars. Continue sliding scale. Diabetic diet. 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 Her was recently discharged from [facility] for MRSA related infection of the thigh and reportedly had a recent debridement of the thigh. MRSA surveillance pending. Started on mupirocin decolonization (8) Thrombocytosis Is this a current diagnosis for this admission?: Yes Plan: Improving. CBC tomorrow (9) Anemia Is this a current diagnosis for this admission?: Yes Plan: Admission hemoglobin 10.3 which suggest that patient may have had chronic anemia due to her underlying kidney disease. Hemoglobin 8.5 today. Normal iron stores, folic acid and vitamin B12 levels. Pending guaiac. CBC tomorrow. (10) Morbid obesity Is this a current diagnosis for this admission?: Yes Plan: Diet and lifestyle modification. Outpatient PCP follow-up. Patient may benefit from gastric bypass due to her BMI 56.3 (11) Altered mental state Is this a current diagnosis for this admission?: Yes Plan: Unidentified cause. ABG O2 of 82 pH 7.39 CO2 37 on room air, CT head was negative for any acute abnormalities. This is likely due to narcotic that she is receiving for her pain. Will stop tizanidine and decrease the use of narcotics. Patient is on Tylenol for pain however is not controlling her pain. She cannot receive NSAIDs due to acute on chronic kidney injury. Will monitor
[2018-07-14] MEDS: DAPTOMYCIN 600 MG in NORMAL SALINE 50 ML IV SCH (16:16)
[2018-07-14 16:39] LABS: A/G RATIO 0.9 (0.7-1.7); BETA GLOBULINS 0.9 g/dL (0.7-1.3); GLOBULIN TOTAL 3.3 g/dL (2.2-3.9); MONOCLONAL SPIKE Not Observed g/dL (Not Observ); PROTEIN TOTAL SERUM 6.3 g/dL (6.0-8.5)
[2018-07-14] MEDS ORDERED: DAPTOMYCIN 600 MG in NORMAL SALINE 50 ML IV SCH (18:00)
[2018-07-15] MEDS: OXYCODONE-ACETAMINOPHEN 5-325 MG TABLET PO PRN ×2 (04:03→22:09)
[2018-07-15] MEDS: HEPARIN SOD (PORCINE) 5,000 UNIT/ML 1 ML SYRINGE SUBCUT SCH ×3 (05:49→21:36)
[2018-07-15] MEDS: LANSOPRAZOLE 15 MG TAB.RAP.DR PO SCH (05:49)
[2018-07-15 06:56] LABS: ABSOLUTE EOSINOPHILS # (AUTO) 0.3 10^3/uL (0.0-0.6); ABSOLUTE LYMPHOCYTES (AUTO) 1.8 10^3/uL (0.5-4.7); ABSOLUTE MONOCYTES (AUTO) 0.6 10^3/uL (0.1-1.4); ABSOLUTE NEUT (AUTO) 3.7 10^3/uL (1.7-8.2); BASOPHILS % (AUTO) 0.8 % (0-2); EOSINOPHILS % (AUTO) 4.4 % (0-6); HEMATOCRIT 23.9 % (36.0-47.0); LYMPHOCYTES % (AUTO) 27.4 % (13-45); MEAN CORPUSCULAR HEMOGLOBIN 28.8 pg (27.0-33.4); MEAN CORPUSCULAR HGB CONC 32.8 g/dL (32.0-36.0); MEAN CORPUSCULAR VOLUME 88 fl (80-97); MONOCYTES % (AUTO) 9.2 % (3-13); PLATELET COUNT 385 10^3/uL (150-450); RED BLOOD COUNT 2.72 10^6/uL (3.72-5.28); RED CELL DISTRIBUTION WIDTH 15.3 % (11.5-14.0); SEGMENTED NEUTROPHILS % (AUTO) 58.2 % (42-78); TOTAL CELLS COUNTED % (AUTO) 100 %; WHITE BLOOD COUNT 6.4 10^3/uL (4.0-10.5)
[2018-07-15 06:59] LABS: ALANINE AMINOTRANSFERASE 13 U/L (9-52); ALBUMIN 2.9 g/dL (3.5-5.0); ALKALINE PHOSPHATASE 79 U/L (38-126); ANION GAP 7 (5-19); ASPARTATE AMINO TRANSFERASE 29 U/L (14-36); BILIRUBIN,DIRECT 0.4 mg/dL (0.0-0.4); BILIRUBIN,TOTAL 0.4 mg/dL (0.2-1.3); BLOOD UREA NITROGEN 19 mg/dL (7-20); CALCIUM 7.5 mg/dL (8.4-10.2); CARBON DIOXIDE 22 mmol/L (22-30); CHLORIDE 107 mmol/L (98-107); GLUCOSE 113 mg/dL (75-110); HEMOGLOBIN 7.8 g/dL (12.0-15.5); POTASSIUM 4.1 mmol/L (3.6-5.0); SODIUM 135.9 mmol/L (137-145)
[2018-07-15] MEDS: MAGNESIUM OXIDE 400 MG TABLET PO SCH ×2 (09:33→18:36)
[2018-07-15] MEDS: DULOXETINE HCL 30 MG CAPSULE.DR PO SCH ×2 (09:33→22:00)
[2018-07-15] MEDS: ASPIRIN 81 MG TABLET, ENT COATED PO SCH (09:33)
[2018-07-15] MEDS: POTASSIUM CHLORIDE 10 MEQ CAPSULE.ER PO SCH ×2 (09:33→22:00)
[2018-07-15] MEDS: SODIUM BICARBONATE 650 MG TABLET PO SCH ×2 (09:33→21:59)
[2018-07-15] MEDS: METOPROLOL TARTRATE 100 MG TABLET PO SCH (09:35)
[2018-07-15] MEDS: SENNOSIDES/DOCUSATE 8.6-50 MG 1 EACH TABLET PO SCH (09:36)
[2018-07-15] MEDS: MUPIROCIN 2% OINTMENT 22 GM TP SCH ×2 (09:44→18:37)
[2018-07-15] MEDS ORDERED: METOPROLOL SUCCINATE 50 MG TAB.SR.24H PO SCH (10:00)
--- NOTE | 2018-07-15 10:48 | PDOC PROGRESS REPORT ---
Subjective Subjective:: This is a 53-year-old female who was admitted for severe sepsis secondary to a large back abscess which was initially drained in the ER upon admission, status post I&D 07/09/2018. Patient came in with severe metabolic acidosis likely from severe sepsis and acute on chronic renal failure. She was persistently having severe metabolic acidosis and was eventually started on bicarb drip 07/10/2018. Patient states she has multiple family members who has had abscesses caused by MRSA. No acute events overnight. Patient is alert and oriented back to baseline. Patient has been receiving minimal narcotics and that may be the reason that she is not lethargic anymore. She says her pain is controlled better, denies any shortness of breath, fever, chills, nausea, vomiting, diarrhea, constipation, abdominal pain, urinary symptoms. Reason For Visit: SEVERE SEPSIS,BACK ABSCESS Physical Exam Vital Signs: Temp Pulse Resp BP Pulse Ox 97.5 F 64 22 H 90/49 L 97 07/15/18 08:00 07/15/18 08:00 07/15/18 08:00 07/15/18 08:00 07/15/18 08:00 Intake & Output 07/14/18 07/15/18 07/16/18 06:59 06:59 06:59 Intake Total 500 2092 Balance 500 2092 Weight 143.2 kg 144.8 kg Results Laboratory Results: 07/15/18 06:24 07/15/18 06:24 07/14/18 07/15/18 07/15/18 13:00 06:24 06:24 WBC 6.4 RBC 2.72 L Hgb 7.8 L Hct 23.9 L MCV 88 MCH 28.8 MCHC 32.8 RDW 15.3 H Plt Count 385 Seg Neutrophils % 58.2 Lymphocytes % 27.4 Monocytes % 9.2 Eosinophils % 4.4 Basophils % 0.8 Absolute Neutrophils 3.7 Absolute Lymphocytes 1.8 Absolute Monocytes 0.6 Absolute Eosinophils 0.3 Absolute Basophils 0.0 Sodium 135.9 L Potassium 4.1 Chloride 107 Carbon Dioxide 22 Anion Gap 7 BUN 19 Creatinine 1.42 H Est GFR ( Amer) 46 L Est GFR (Non-Af Amer) 38 L Glucose 113 H Calcium 7.5 L Magnesium 1.5 L Total Bilirubin 0.4 AST 29 ALT 13 Alkaline Phosphatase 79 Ammonia < 8.7 L Total Protein 6.0 L Albumin 2.9 L 07/09/18 07/10/18 07/14/18 18:20 05:08 13:00 Creatine Kinase 44 48 185 H Impressions: Renal Ultrasound 07/08/18 00:00 IMPRESSION: Morbid obesity. Very limited visualization of the kidneys with ultrasound. No gross hydronephrosis Abdomen/Pelvis CT 07/09/18 00:00 IMPRESSION: NO SIGNIFICANT OR ACUTE PROCESS IN THE ABDOMEN OR PELVIS. Chest X-Ray 07/10/18 06:00 IMPRESSION: Abnormal soft tissue gas is seen over the left supraclavicular and axillary region. Otherwise unremarkable study Head CT 07/14/18 00:00 IMPRESSION: NORMAL BRAIN CT WITHOUT CONTRAST. EVIDENCE OF ACUTE STROKE: NO. Assessment & Plan - Diagnosis (1) Sepsis Is this a current diagnosis for this admission?: Yes Plan: Improving. Sepsis is likely secondary to a large left upper back abscess. Culture from the abscess grew MRSA. Blood culture positive for staph epidermidis. Vancomycin was switched to daptomycin on 07/09/18 due to worsening renal functions. Baseline CPK has been obtained prior to daptomycin administration. Zosyn was DC'd. We will continue daptomycin and switch to p.o. once clinically appropriate. As per ID note positive blood cultures for staph epidermidis may have been a contamination. (2) Staphylococcus epidermidis bacteremia Is this a current diagnosis for this admission?: Yes Plan: Most likely contamination. Please refer to ID note (3) Abscess Is this a current diagnosis for this admission?: Yes Plan: Status post I&D on 07/09/2018. Surgery on board considering wound VAC placement. Cultures growing MRSA. Continue daptomycin. Negative nasal swab for staph aureus. We will continue decolonization with topical mupirocin over the anterior nares bilateral groin and axilla. Even though nasal swab was negative patient may still benefit from decolonization due to the fact that all her family has history of MRSA abscesses. (4) Acute renal failure Is this a current diagnosis for this admission?: Yes Plan: Improving. Creatinine 1.46 from 1.78. Magnesium replaced.. Continue daily magnesium and p.o. potassium Baseline creatinine of 1.3-1.4. FENA is 0.4% which suggest pre renal IVORY. But this is likely more of a combination of pre renal IVORY from dehydration, severe sepsis and septic ATN. Imaging has ruled out obstructive uropathy. Nephrology following. CMP tomorrow (5) Chronic kidney disease, stage 3 Is this a current diagnosis for this admission?: Yes Plan: Possibly from chronic hypertension and diabetes mellitus. We will continue to closely monitor monitor renal functions. Nephrology following (6) Diabetes mellitus Qualifiers: Diabetes mellitus type: type 2 Is this a current diagnosis for this admission?: Yes Plan: Hemoglobin A1c is 7.3. Continue to monitor blood sugars. Continue sliding scale. Diabetic diet. 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 Her was recently discharged from [facility] for MRSA related infection of the thigh and reportedly had a recent debridement of the thigh. MRSA surveillance pending. Started on mupirocin decolonization (8) Thrombocytosis Is this a current diagnosis for this admission?: Yes Plan: Likely due to underlying sepsis. Resolved. (9) Anemia Is this a current diagnosis for this admission?: Yes Plan: Admission hemoglobin 10.3 which suggest that patient may have had chronic anemia due to her underlying kidney disease. Hemoglobin 7.8 today. Asymptomatic. Start on supplemental iron. Normal iron stores, folic acid and vitamin B12 levels. Pending guaiac. CBC tomorrow. (10) Morbid obesity Is this a current diagnosis for this admission?: Yes Plan: Diet and lifestyle modification. Outpatient PCP follow-up. Patient may benefit from gastric bypass due to her BMI 56.3 (11) Altered mental state Is this a current diagnosis for this admission?: Yes Plan: Resolved. This is likely due to narcotic that she is receiving for her pain. Will stop tizanidine and decrease the use of narcotics. Patient is on Tylenol for pain however is not controlling her pain. She cannot receive NSAIDs due to acute on chronic kidney injury. Will monitor
[2018-07-15] MEDS: MAGNESIUM SULFATE/D5W 1 GM/100 ML RTUPB IV SCH ×2 (11:52→15:36)
[2018-07-15] MEDS ORDERED: MAGNESIUM SULFATE/D5W 1 GM/100 ML RTUPB IV ONE ×2 (15:35→16:00)
[2018-07-15] MEDS: DAPTOMYCIN 600 MG in NORMAL SALINE 50 ML IV SCH (15:37)
[2018-07-15] MEDS: ACETAMINOPHEN 325 MG TABLET PO PRN (16:25)
[2018-07-15] MEDS ORDERED: TRAMADOL HCL 50 MG TABLET PO PRN (17:13)
[2018-07-15] MEDS ORDERED: NORMAL SALINE 1000 ML 1,000 ML IV ONE (20:30)
[2018-07-16] MEDS: HEPARIN SOD (PORCINE) 5,000 UNIT/ML 1 ML SYRINGE SUBCUT SCH ×3 (06:08→21:59)
[2018-07-16] MEDS: LANSOPRAZOLE 15 MG TAB.RAP.DR PO SCH (06:08)
[2018-07-16 08:54] LABS: ABSOLUTE EOSINOPHILS # (AUTO) 0.2 10^3/uL (0.0-0.6); ABSOLUTE LYMPHOCYTES (AUTO) 1.2 10^3/uL (0.5-4.7); ABSOLUTE MONOCYTES (AUTO) 0.3 10^3/uL (0.1-1.4); ABSOLUTE NEUT (AUTO) 2.6 10^3/uL (1.7-8.2); BASOPHILS % (AUTO) 0.4 % (0-2); EOSINOPHILS % (AUTO) 5.4 % (0-6); HEMATOCRIT 22.5 % (36.0-47.0); LYMPHOCYTES % (AUTO) 26.9 % (13-45); MEAN CORPUSCULAR HEMOGLOBIN 29.1 pg (27.0-33.4); MEAN CORPUSCULAR HGB CONC 33.2 g/dL (32.0-36.0); MEAN CORPUSCULAR VOLUME 88 fl (80-97); PLATELET COUNT 346 10^3/uL (150-450); RED BLOOD COUNT 2.56 10^6/uL (3.72-5.28); RED CELL DISTRIBUTION WIDTH 15.4 % (11.5-14.0); SEGMENTED NEUTROPHILS % (AUTO) 60.3 % (42-78); TOTAL CELLS COUNTED % (AUTO) 100 %; WHITE BLOOD COUNT 4.4 10^3/uL (4.0-10.5)
[2018-07-16 08:56] LABS: HEMOGLOBIN 7.4 g/dL (12.0-15.5)
[2018-07-16 09:06] LABS: ALANINE AMINOTRANSFERASE 21 U/L (9-52); ALBUMIN 2.5 g/dL (3.5-5.0); ALKALINE PHOSPHATASE 79 U/L (38-126); ANION GAP 9 (5-19); ASPARTATE AMINO TRANSFERASE 15 U/L (14-36); BILIRUBIN,DIRECT 0.3 mg/dL (0.0-0.4); BILIRUBIN,TOTAL 0.3 mg/dL (0.2-1.3); BLOOD UREA NITROGEN 16 mg/dL (7-20); CALCIUM 7.7 mg/dL (8.4-10.2); CARBON DIOXIDE 20 mmol/L (22-30); CHLORIDE 106 mmol/L (98-107); GLUCOSE 115 mg/dL (75-110); POTASSIUM 4.3 mmol/L (3.6-5.0); SODIUM 134.9 mmol/L (137-145); TOTAL PROTEIN 5.2 g/dL (6.3-8.2)
--- NOTE | 2018-07-16 10:09 | PDOC PROGRESS REPORT ---
Subjective Subjective:: This is a 53-year-old female who was admitted for severe sepsis secondary to a large back abscess which was initially drained in the ER upon admission, status post I&D 07/09/2018. Patient came in with severe metabolic acidosis likely from severe sepsis and acute on chronic renal failure. She was persistently having severe metabolic acidosis and was eventually started on bicarb drip 07/10/2018. Patient states she has multiple family members who has had abscesses caused by MRSA. Patient hypotensive overnight but asymptomatic. Refuses her IV bolus.. Patient is alert and oriented back to baseline. Switch Percocet to tramadol. denies any shortness of breath, fever, chills, nausea, vomiting, diarrhea, constipation, abdominal pain, urinary symptoms. Reason For Visit: SEVERE SEPSIS,BACK ABSCESS Physical Exam Vital Signs: Temp Pulse Resp BP Pulse Ox 97.7 F 70 20 98/51 L 100 07/16/18 07:22 07/16/18 07:22 07/16/18 07:22 07/16/18 07:22 07/16/18 07:22 Intake & Output 07/15/18 07/16/18 07/17/18 06:59 06:59 06:59 Intake Total 2 730 Balance 2091 730 Weight 144.8 kg 146.1 kg General appearance: PRESENT: no acute distress, morbidly obese, well-developed, well-nourished Head exam: PRESENT: atraumatic, normocephalic Eye exam: PRESENT: conjunctiva pink, EOMI, PERRLA. ABSENT: scleral icterus Ear exam: PRESENT: normal external ear exam Mouth exam: PRESENT: moist, tongue midline Neck exam: ABSENT: carotid bruit, JVD, lymphadenopathy, thyromegaly Respiratory exam: PRESENT: clear to auscultation so. ABSENT: rales, rhonchi, wheezes Cardiovascular exam: PRESENT: RRR. ABSENT: diastolic murmur, rubs, systolic murmur Pulses: PRESENT: normal dorsalis pedis pul Vascular exam: PRESENT: normal capillary refill GI/Abdominal exam: PRESENT: normal bowel sounds, soft. ABSENT: distended, guarding, mass, organolmegaly, rebound, tenderness Rectal exam: PRESENT: deferred Extremities exam: PRESENT: full ROM. ABSENT: calf tenderness, clubbing, pedal edema Neurological exam: PRESENT: alert, awake, oriented to person, oriented to place , oriented to time, oriented to situation, CN II-XII grossly intact. ABSENT: motor sensory deficit Psychiatric exam: PRESENT: appropriate affect, normal mood. ABSENT: homicidal ideation, suicidal ideation Skin exam: PRESENT: dry, intact, warm, other - Right upper mid back abscess status post I&D. Wound is clean no sign of discharge no tenderness.. ABSENT: cyanosis, rash Results Laboratory Results: 07/16/18 08:17 07/16/18 08:17 07/16/18 07/16/18 08:17 08:17 WBC 4.4 RBC 2.56 L Hgb 7.4 L Hct 22.5 L MCV 88 MCH 29.1 MCHC 33.2 RDW 15.4 H Plt Count 346 Seg Neutrophils % 60.3 Lymphocytes % 26.9 Monocytes % 7.0 Eosinophils % 5.4 Basophils % 0.4 Absolute Neutrophils 2.6 Absolute Lymphocytes 1.2 Absolute Monocytes 0.3 Absolute Eosinophils 0.2 Absolute Basophils 0.0 Sodium 134.9 L Potassium 4.3 Chloride 106 Carbon Dioxide 20 L Anion Gap 9 BUN 16 Creatinine 1.29 H Est GFR ( Amer) 52 L Est GFR (Non-Af Amer) 43 L Glucose 115 H Calcium 7.7 L Total Bilirubin 0.3 AST 15 ALT 21 Alkaline Phosphatase 79 Total Protein 5.2 L Albumin 2.5 L 07/09/18 07/10/18 07/14/18 18:20 05:08 13:00 Creatine Kinase 44 48 185 H Impressions: Renal Ultrasound 07/08/18 00:00 IMPRESSION: Morbid obesity. Very limited visualization of the kidneys with ultrasound. No gross hydronephrosis Abdomen/Pelvis CT 07/09/18 00:00 IMPRESSION: NO SIGNIFICANT OR ACUTE PROCESS IN THE ABDOMEN OR PELVIS. Chest X-Ray 07/10/18 06:00 IMPRESSION: Abnormal soft tissue gas is seen over the left supraclavicular and axillary region. Otherwise unremarkable study Head CT 07/14/18 00:00 IMPRESSION: NORMAL BRAIN CT WITHOUT CONTRAST. EVIDENCE OF ACUTE STROKE: NO. Assessment & Plan - Diagnosis (1) Acute renal failure Is this a current diagnosis for this admission?: Yes Plan: Improving. Creatinine 1.2 from 1.46. Electrolytes within normal limits Baseline creatinine of 1.3-1.4. FENA is 0.4% which suggest pre renal IVORY. But this is likely more of a combination of pre renal IVORY from dehydration, severe sepsis and septic ATN. Imaging has ruled out obstructive uropathy. Nephrology following. CMP tomorrow (2) Staphylococcus epidermidis bacteremia Is this a current diagnosis for this admission?: Yes Plan: Most likely contamination. Please refer to ID note (3) Abscess Is this a current diagnosis for this admission?: Yes Plan: Status post I&D on 07/09/2018. Pending surgery recommendation. Switch daptomycin to clindamycin 450 tidy. Total of 8 days of biotics. Continue another 6 days. Clindamycin day 1/7. Negative nasal swab for staph aureus. We will continue decolonization with topical mupirocin over the anterior nares bilateral groin and axilla. Even though nasal swab was negative patient may still benefit from decolonization due to the fact that all her family has history of MRSA abscesses. (4) Chronic kidney disease, stage 3 Is this a current diagnosis for this admission?: Yes Plan: Possibly from chronic hypertension and diabetes mellitus. We will continue to closely monitor monitor renal functions. Nephrology following (5) Diabetes mellitus Qualifiers: Diabetes mellitus type: type 2 Is this a current diagnosis for this admission?: Yes Plan: Hemoglobin A1c is 7.3. Continue to monitor blood sugars. Continue sliding scale. Diabetic diet. 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 Her was recently discharged from [facility] for MRSA related infection of the thigh and reportedly had a recent debridement of the thigh. Started on mupirocin decolonization (7) Thrombocytosis Is this a current diagnosis for this admission?: Yes Plan: Likely due to underlying sepsis. Resolved. (8) Anemia Is this a current diagnosis for this admission?: Yes Plan: Admission hemoglobin 10.3 which suggest that patient may have had chronic anemia due to her underlying kidney disease. Hemoglobin 7. 3 today. Asymptomatic. Transfuse 1 PRBC today. Start on supplemental iron. Normal iron stores, folic acid and vitamin B12 levels. Pending guaiac. CBC tomorrow. (9) Morbid obesity Is this a current diagnosis for this admission?: Yes Plan: Diet and lifestyle modification. Outpatient PCP follow-up. Patient may benefit from gastric bypass due to her BMI 56.3 (10) Altered mental state Is this a current diagnosis for this admission?: Yes Plan: Resolved. DC Percocet, started on tramadol low-dose. Hold tizanidine. Patient is on Tylenol for pain however is not controlling her pain. She cannot receive NSAIDs due to acute on chronic kidney injury. Will monitor
[2018-07-16] MEDS: POTASSIUM CHLORIDE 10 MEQ CAPSULE.ER PO SCH ×2 (14:02→21:59)
[2018-07-16] MEDS: MAGNESIUM OXIDE 400 MG TABLET PO SCH ×2 (14:02→18:45)
[2018-07-16] MEDS: DULOXETINE HCL 30 MG CAPSULE.DR PO SCH ×2 (14:02→21:58)
[2018-07-16] MEDS: ASPIRIN 81 MG TABLET, ENT COATED PO SCH (14:02)
[2018-07-16] MEDS: FERROUS SULFATE 325 MG TABLET PO SCH (14:02)
[2018-07-16] MEDS: SENNOSIDES/DOCUSATE 8.6-50 MG 1 EACH TABLET PO SCH (14:03)
[2018-07-16] MEDS: SODIUM BICARBONATE 650 MG TABLET PO SCH ×2 (14:03→21:59)
[2018-07-16] MEDS: DAPTOMYCIN 600 MG in NORMAL SALINE 50 ML IV SCH (14:03)
[2018-07-16] MEDS: MUPIROCIN 2% OINTMENT 22 GM TP SCH ×2 (14:07→18:45)
[2018-07-16] MEDS: CLINDAMYCIN HCL 150 MG CAPSULE PO SCH ×2 (16:28→21:58)
[2018-07-16] MEDS: TRAMADOL HCL 50 MG TABLET PO PRN (16:29)
[2018-07-16] MEDS: OXYCODONE-ACETAMINOPHEN 5-325 MG TABLET PO PRN ×2 (16:31→22:02)
--- NOTE | 2018-07-17 00:02 | PDOC PROGRESS REPORT ---
Subjective Progress Note for:: 07/16/18 Subjective:: pains left upper back I&D site Reason For Visit: SEVERE SEPSIS,BACK ABSCESS Physical Exam Vital Signs: Temp Pulse Resp BP Pulse Ox 98.2 F 89 20 115/65 99 07/16/18 20:11 07/16/18 20:11 07/16/18 20:11 07/16/18 20:11 07/16/18 20:11 Intake & Output 07/15/18 07/16/18 07/17/18 06:59 06:59 06:59 Intake Total 2 730 540 Balance 2 730 540 Weight 144.8 kg 146.1 kg Exam: abscess cavity with outer incsional defect getting smaller but still has a lot of undermining Results Laboratory Results: 07/16/18 08:17 07/16/18 08:17 07/13/18 07/16/18 07/16/18 06:40 08:17 08:17 WBC 4.4 RBC 2.56 L Hgb 7.4 L Hct 22.5 L MCV 88 MCH 29.1 MCHC 33.2 RDW 15.4 H Plt Count 346 Seg Neutrophils % 60.3 Lymphocytes % 26.9 Monocytes % 7.0 Eosinophils % 5.4 Basophils % 0.4 Absolute Neutrophils 2.6 Absolute Lymphocytes 1.2 Absolute Monocytes 0.3 Absolute Eosinophils 0.2 Absolute Basophils 0.0 Sodium 134.9 L Potassium 4.3 Chloride 106 Carbon Dioxide 20 L Anion Gap 9 BUN 16 Creatinine 1.29 H Est GFR ( Amer) 52 L Est GFR (Non-Af Amer) 43 L Glucose 115 H Calcium 7.7 L Total Bilirubin 0.3 AST 15 ALT 21 Alkaline Phosphatase 79 Total Protein 6.3 5.2 L Albumin 3.0 2.5 L Blood Type Antibody Screen 07/16/18 13:18 WBC RBC Hgb Hct MCV MCH MCHC RDW Plt Count Seg Neutrophils % Lymphocytes % Monocytes % Eosinophils % Basophils % Absolute Neutrophils Absolute Lymphocytes Absolute Monocytes Absolute Eosinophils Absolute Basophils Sodium Potassium Chloride Carbon Dioxide Anion Gap BUN Creatinine Est GFR ( Amer) Est GFR (Non-Af Amer) Glucose Calcium Total Bilirubin AST ALT Alkaline Phosphatase Total Protein Albumin Blood Type O POSITIVE Antibody Screen NEGATIVE 07/09/18 07/10/18 07/14/18 18:20 05:08 13:00 Creatine Kinase 44 48 185 H Impressions: Renal Ultrasound 07/08/18 00:00 IMPRESSION: Morbid obesity. Very limited visualization of the kidneys with ultrasound. No gross hydronephrosis Abdomen/Pelvis CT 07/09/18 00:00 IMPRESSION: NO SIGNIFICANT OR ACUTE PROCESS IN THE ABDOMEN OR PELVIS. Chest X-Ray 07/10/18 06:00 IMPRESSION: Abnormal soft tissue gas is seen over the left supraclavicular and axillary region. Otherwise unremarkable study Head CT 07/14/18 00:00 IMPRESSION: NORMAL BRAIN CT WITHOUT CONTRAST. EVIDENCE OF ACUTE STROKE: NO. Assessment & Plan - Time Time Spent with patient: 15-24 minutes - Inpatient Certification Medical Necessity: Need for IV Antibiotics, Need for Surgery - Plan Summary Plan Summary: Will likely benefit from unroofing the abscess cavity. Patient initially agred and signed consent but later decided to cancel procedure. Continue with wet to dry dressings and IV antibiotics.
[2018-07-17] MEDS: TRAMADOL HCL 50 MG TABLET PO PRN ×2 (00:54→18:42)
[2018-07-17] MEDS: CLINDAMYCIN HCL 150 MG CAPSULE PO SCH ×3 (06:23→21:11)
[2018-07-17] MEDS: LANSOPRAZOLE 15 MG TAB.RAP.DR PO SCH (06:23)
[2018-07-17] MEDS: OXYCODONE-ACETAMINOPHEN 5-325 MG TABLET PO PRN ×3 (06:23→21:00)
[2018-07-17] MEDS: HEPARIN SOD (PORCINE) 5,000 UNIT/ML 1 ML SYRINGE SUBCUT SCH ×3 (06:24→21:11)
[2018-07-17 07:43] LABS: ABSOLUTE EOSINOPHILS # (AUTO) 0.3 10^3/uL (0.0-0.6); ABSOLUTE LYMPHOCYTES (AUTO) 1.2 10^3/uL (0.5-4.7); ABSOLUTE MONOCYTES (AUTO) 0.4 10^3/uL (0.1-1.4); ABSOLUTE NEUT (AUTO) 2.5 10^3/uL (1.7-8.2); BASOPHILS % (AUTO) 0.5 % (0-2); EOSINOPHILS % (AUTO) 6.7 % (0-6); HEMATOCRIT 24.7 % (36.0-47.0); HEMOGLOBIN 8.4 g/dL (12.0-15.5); LYMPHOCYTES % (AUTO) 27.2 % (13-45); MEAN CORPUSCULAR HEMOGLOBIN 29.6 pg (27.0-33.4); MEAN CORPUSCULAR HGB CONC 34.2 g/dL (32.0-36.0); MEAN CORPUSCULAR VOLUME 87 fl (80-97); MONOCYTES % (AUTO) 8.7 % (3-13); PLATELET COUNT 306 10^3/uL (150-450); RED BLOOD COUNT 2.85 10^6/uL (3.72-5.28); SEGMENTED NEUTROPHILS % (AUTO) 56.9 % (42-78); TOTAL CELLS COUNTED % (AUTO) 100 %; WHITE BLOOD COUNT 4.4 10^3/uL (4.0-10.5)
[2018-07-17 08:10] LABS: ALANINE AMINOTRANSFERASE 23 U/L (9-52); ALBUMIN 2.5 g/dL (3.5-5.0); ALKALINE PHOSPHATASE 80 U/L (38-126); ANION GAP 9 (5-19); ASPARTATE AMINO TRANSFERASE 16 U/L (14-36); BILIRUBIN,DIRECT 0.3 mg/dL (0.0-0.4); BILIRUBIN,TOTAL 0.3 mg/dL (0.2-1.3); BLOOD UREA NITROGEN 13 mg/dL (7-20); CALCIUM 7.8 mg/dL (8.4-10.2); CARBON DIOXIDE 19 mmol/L (22-30); CHLORIDE 107 mmol/L (98-107); GLUCOSE 82 mg/dL (75-110); POTASSIUM 4.6 mmol/L (3.6-5.0); SODIUM 134.9 mmol/L (137-145); TOTAL PROTEIN 5.3 g/dL (6.3-8.2)
[2018-07-17] MEDS ORDERED: ONDANSETRON HCL INJ/PF 4 MG/2 ML SDV ONE (08:15)
[2018-07-17] MEDS ORDERED: PROPOFOL INJ 200 MG/20 ML VIAL IV ONE (08:15)
[2018-07-17] MEDS ORDERED: FENTANYL CITRATE INJ/PF 100 MCG/2 ML AMPUL ONE (08:15)
[2018-07-17] MEDS ORDERED: LIDOCAINE 1% INJ-PF (10 MG/ML) 30 ML SDV ONE (08:35)
[2018-07-17] MEDS ORDERED: LIDOCAINE 0.5% INJ-PF (5 MG/ML) 50 ML SDV ONE (08:35)
[2018-07-17] MEDS ORDERED: BUPIVACAINE HCL 0.5 % INJ/PF 30 ML SDV ONE (08:35)
[2018-07-17] MEDS ORDERED: MIDAZOLAM 2 MG/2 ML INJ ONE (08:38)
[2018-07-17] MEDS ORDERED: PROMETHAZINE HCL INJ 25 MG/1 ML VIAL IV PRN (09:12)
[2018-07-17] MEDS ORDERED: DIPHENHYDRAMINE HCL 50 MG/ML VIAL IV PRN (09:12)
[2018-07-17] MEDS ORDERED: MEPERIDINE HCL/PF INJ 25 MG/1 ML DISP.SYRIN IV PRN (09:12)
[2018-07-17] MEDS ORDERED: FENTANYL CITRATE INJ/PF 100 MCG/2 ML AMPUL IV PRN ×2 (09:12)
[2018-07-17] MEDS ORDERED: NORMAL SALINE INJ/PF 0.9% 10 ML SDV IV PRN (09:38)
--- NOTE | 2018-07-17 09:44 | Operative Report ---
Nonrecallable Operative Report DATE OF SURGERY: 07/17/18 PREOPERATIVE DIAGNOSIS: 1. Deep right back abscess. 2. Inadequate intravenous access. 3. Morbid obesity POSTOPERATIVE DIAGNOSIS: Same OPERATION: 1. Ultrasound directed insertion of left internal jugular vein central venous access catheter. 2. Excisional debridement of right upper back abscess, irrigation and packing SURGEON: ARMANI MERINO ANESTHESIA: LMAC TISSUE REMOVED OR ALTERED: Skin and subcutaneous tissue right upper back COMPLICATIONS: None ESTIMATED BLOOD LOSS: 75 cc INTRAOPERATIVE FINDINGS: See below PROCEDURE: Patient was taken to the preop holding area to the main operating room where LMAC anesthesia was induced. She was placed in supine position arms tucked left neck exposed. Arrangements were made for left internal jugular vein central venous access catheter insertion. Surgical plan surgical timeout conducted The skin was prepped and draped with chlorhexidine. Using ultrasound as a guide , the left internal jugular vein was cannulated after anesthetizing the skin with 1% plain lidocaine. Needle and wire were threaded uneventfully. Tract dilated up, and a triple lumen central venous access catheter was threaded to its hub. There was excellent blood flow from all 3 lm. Ports flushed with saline, Biopatch, silk suture and benzoin and Tegaderm applied. Patient tolerated procedure well. The catheter was used throughout the remainder of the operation. Patient was now placed in the right lateral decubitus position left side up. The previously debrided right upper back wound was exposed, prepped and draped with Betadine. The skin around the previous opening was anesthetized with 1 % plain lidocaine. It was now excised in a circumferential fashion to a final diameter of 6 cm x 3.5 cm. The underlying large abscess cavity was explored. There was no foul smell, drainage. The subcutaneous tissue was lobulated but not loose or necrotic. It was covered with granulation tissue. The wound was irrigated several times with saline, and finger dissection ensured no undrained pockets. Several small bleeders were cauterized. We felt additional debridement was was not required. The wound was packed with an entire saline moistened Kerlix. 4 x 4's applied. Patient procedure well, taken recovery room in stable condition.
[2018-07-17] MEDS: FENTANYL CITRATE INJ/PF 100 MCG/2 ML AMPUL ONE ×2 (09:50→09:55)
[2018-07-17] MEDS ORDERED: HYDROMORPHONE HCL INJ/PF 2 MG/ML AMPULE ONE (10:12)
[2018-07-17] MEDS: POTASSIUM CHLORIDE 10 MEQ CAPSULE.ER PO SCH (11:48)
[2018-07-17] MEDS: FERROUS SULFATE 325 MG TABLET PO SCH (11:48)
[2018-07-17] MEDS: DULOXETINE HCL 30 MG CAPSULE.DR PO SCH ×2 (11:48→21:11)
[2018-07-17] MEDS: MAGNESIUM OXIDE 400 MG TABLET PO SCH (11:48)
[2018-07-17] MEDS: SODIUM BICARBONATE 650 MG TABLET PO SCH ×2 (11:48→21:12)
[2018-07-17] MEDS: ASPIRIN 81 MG TABLET, ENT COATED PO SCH (11:49)
[2018-07-17] MEDS: SENNOSIDES/DOCUSATE 8.6-50 MG 1 EACH TABLET PO SCH (11:50)
[2018-07-17] MEDS: MUPIROCIN 2% OINTMENT 22 GM TP SCH ×2 (11:50→18:44)
--- NOTE | 2018-07-17 13:05 | RADIOLOGY REPORT (SQ) ---
EXAM DESCRIPTION: CHEST SINGLE VIEW COMPLETED DATE/TIME: 07/17/2018 12:52 pm REASON FOR STUDY: central line placement COMPARISON: None. EXAM PARAMETERS: NUMBER OF VIEWS: One view. TECHNIQUE: Single frontal radiographic view of the chest acquired. RADIATION DOSE: NA LIMITATIONS: None. FINDINGS: LUNGS AND PLEURA: No opacities, masses or pneumothorax. No pleural effusion. MEDIASTINUM AND HILAR STRUCTURES: No masses. Contour normal. HEART AND VASCULAR STRUCTURES: Heart normal in size. Normal vasculature. BONES: No acute findings. HARDWARE: Interval placement of left IJV line with the tip in the region of the right atrium. OTHER: As on the prior examination, abnormal complex subcutaneous emphysematous density in the left supraclavicular and axillary region. Some slight decrease since the prior examination. IMPRESSION: 1. Interval placement of left IJV line since the previous examination dated 07/10/2018, t ip in the region of the right atrium. 2. No evidence of pneumothorax. 3. Abnormal complex subcutaneous emphysematous density in the left supraclavicular and axillary paulina on with some slight decrease. TECHNICAL DOCUMENTATION: JOB ID: [id number] [employer]- All Rights Reserved Reading location - IP/workstation name: [email or web address]
--- NOTE | 2018-07-17 14:39 | PDOC PROGRESS REPORT ---
Subjective Progress Note for:: 07/17/18 Subjective:: Patient was sitting up in her bed at the time of examination. Recently was taken down for surgery this morning and had an I&D of the abscess her back. She denies chest pain, SOB, n/v/d/c. Reason For Visit: SEVERE SEPSIS,BACK ABSCESS Physical Exam Vital Signs: Temp Pulse Resp BP Pulse Ox 97.5 F 90 12 130/80 H 99 07/17/18 11:07 07/17/18 11:07 07/17/18 11:07 07/17/18 11:07 07/17/18 11:07 Intake & Output 07/16/18 07/17/18 07/18/18 06:59 06:59 06:59 Intake Total 730 840 350 Output Total 50 Balance 730 840 300 Weight 146.1 kg 143.3 kg General appearance: PRESENT: no acute distress, well-developed, well-nourished Mouth exam: PRESENT: moist, neck supple Neck exam: PRESENT: full ROM. ABSENT: JVD Respiratory exam: PRESENT: clear to auscultation so. ABSENT: accessory muscle use, crackles, rales, rhonchi, wheezes Cardiovascular exam: PRESENT: RRR, +S1, +S2 GI/Abdominal exam: PRESENT: normal bowel sounds, soft. ABSENT: tenderness Extremities exam: ABSENT: pedal edema, tenderness, +1 edema, +2 edema Musculoskeletal exam: PRESENT: normal inspection. ABSENT: tenderness Neurological exam: PRESENT: alert, awake, oriented to person, oriented to place , oriented to time, oriented to situation Skin exam: PRESENT: dry, erythema, intact, warm Results Laboratory Results: 07/17/18 06:59 07/17/18 06:59 07/16/18 07/17/18 07/17/18 13:18 06:59 06:59 WBC 4.4 RBC 2.85 L Hgb 8.4 L Hct 24.7 L MCV 87 MCH 29.6 MCHC 34.2 RDW 15.0 H Plt Count 306 Seg Neutrophils % 56.9 Lymphocytes % 27.2 Monocytes % 8.7 Eosinophils % 6.7 H Basophils % 0.5 Absolute Neutrophils 2.5 Absolute Lymphocytes 1.2 Absolute Monocytes 0.4 Absolute Eosinophils 0.3 Absolute Basophils 0.0 Sodium 134.9 L Potassium 4.6 Chloride 107 Carbon Dioxide 19 L Anion Gap 9 BUN 13 Creatinine 1.28 H Est GFR ( Amer) 52 L Est GFR (Non-Af Amer) 43 L Glucose 82 Calcium 7.8 L Total Bilirubin 0.3 AST 16 ALT 23 Alkaline Phosphatase 80 Total Protein 5.3 L Albumin 2.5 L Blood Type O POSITIVE Antibody Screen NEGATIVE 07/09/18 07/10/18 07/14/18 18:20 05:08 13:00 Creatine Kinase 44 48 185 H Impressions: Renal Ultrasound 07/08/18 00:00 IMPRESSION: Morbid obesity. Very limited visualization of the kidneys with ultrasound. No gross hydronephrosis Abdomen/Pelvis CT 07/09/18 00:00 IMPRESSION: NO SIGNIFICANT OR ACUTE PROCESS IN THE ABDOMEN OR PELVIS. Head CT 07/14/18 00:00 IMPRESSION: NORMAL BRAIN CT WITHOUT CONTRAST. EVIDENCE OF ACUTE STROKE: NO. Chest X-Ray 07/17/18 00:00 IMPRESSION: 1. Interval placement of left IJV line since the previous examination dated 07/10/2018, tip in the region of the right atrium. 2. No evidence of pneumothorax. 3. Abnormal complex subcutaneous emphysematous density in the left supraclavicular and axillary region with some slight decrease. Assessment & Plan - Diagnosis (1) Acute renal failure Is this a current diagnosis for this admission?: Yes Plan: resolved and currently at baseline (2) Abscess Is this a current diagnosis for this admission?: Yes Plan: on clindamycin and recently had an I&D. (3) Anemia Is this a current diagnosis for this admission?: Yes Plan: I advised the patient that she does need procrit shots. She stated that she was uninsured so it was not an option due to serr[place]. She is currently applying for medicaid. If/when she gets medicaid then procrit shots will be arranged. (4) High anion gap metabolic acidosis Is this a current diagnosis for this admission?: Yes Plan: Increasing sodium bicarb to TID (5) Chronic kidney disease, stage 3 Is this a current diagnosis for this admission?: Yes Plan: baseline is 1.2 to 1.3 (6) Diabetes mellitus Qualifiers: Diabetes mellitus type: type 2 Is this a current diagnosis for this admission?: Yes (7) MRSA (methicillin resistant Staphylococcus aureus) Is this a current diagnosis for this admission?: Yes (8) Hypokalemia Plan: decreasing to 20mEQ daily
[2018-07-17] MEDS ORDERED: FLUCONAZOLE 100 MG TABLET PO ONE (16:00)
--- NOTE | 2018-07-17 16:21 | RADIOLOGY REPORT (SQ) ---
EXAM DESCRIPTION: CHEST SINGLE VIEW COMPLETED DATE/TIME: 07/17/2018 4:09 pm REASON FOR STUDY: central line placement COMPARISON: 07/17/2018 EXAM PARAMETERS: NUMBER OF VIEWS: One view. TECHNIQUE: Single frontal radiographic view of the chest acquired. RADIATION DOSE: NA LIMITATIONS: None. FINDINGS: LUNGS AND PLEURA: No opacities, masses or pneumothorax. No pleural effusion. MEDIASTINUM AND HILAR STRUCTURES: No masses. Contour normal. HEART AND VASCULAR STRUCTURES: Heart normal in size. Normal vasculature. BONES: No acute findings. HARDWARE: Repositioning of the left IJV line since the prior examination performed earlier on the [place] date. The tip of the line is near or within the region of the superior vena cava. OTHER: No significant interval changes in the appearance of the left supraclavicular and left axillar y complex subcutaneous emphysematous density. IMPRESSION: 1. Interval repositioning of the left IJV line since the prior study performed earlier on the same date. The tip of the line is near or within the superior vena cava. 2. No evidence of pneumothorax. TECHNICAL DOCUMENTATION: JOB ID: [id number] [employer]- All Rights Reserved Reading location - IP/workstation name: [email or web address]
--- NOTE | 2018-07-17 17:41 | PDOC PROGRESS REPORT ---
Subjective Progress Note for:: 07/17/18 Subjective:: This is a 53-year-old female who was admitted for severe sepsis secondary to a large back abscess which was initially drained in the ER upon admission, status post I&D 07/09/2018. Patient came in with severe metabolic acidosis likely from severe sepsis and acute on chronic renal failure. She was persistently having severe metabolic acidosis and was eventually started on bicarb drip 07/10/2018. Patient states she has multiple family members who has had abscesses caused by MRSA. No acute events overnight. Patient has been normotensive. Also has been stable. Currently is taking tramadol and Tylenol. denies any shortness of breath, fever, chills, nausea, vomiting, diarrhea, constipation, abdominal pain, urinary symptoms. Reason For Visit: SEVERE SEPSIS,BACK ABSCESS Physical Exam Vital Signs: Temp Pulse Resp BP Pulse Ox 97.6 F 108 H 18 121/74 100 07/17/18 15:50 07/17/18 15:50 07/17/18 15:50 07/17/18 15:50 07/17/18 15:50 Intake & Output 07/16/18 07/17/18 07/18/18 06:59 06:59 06:59 Intake Total 730 840 350 Output Total 50 Balance 730 840 300 Weight 146.1 kg 143.3 kg Results Laboratory Results: 07/17/18 06:59 07/17/18 06:59 07/17/18 07/17/18 06:59 06:59 WBC 4.4 RBC 2.85 L Hgb 8.4 L Hct 24.7 L MCV 87 MCH 29.6 MCHC 34.2 RDW 15.0 H Plt Count 306 Seg Neutrophils % 56.9 Lymphocytes % 27.2 Monocytes % 8.7 Eosinophils % 6.7 H Basophils % 0.5 Absolute Neutrophils 2.5 Absolute Lymphocytes 1.2 Absolute Monocytes 0.4 Absolute Eosinophils 0.3 Absolute Basophils 0.0 Sodium 134.9 L Potassium 4.6 Chloride 107 Carbon Dioxide 19 L Anion Gap 9 BUN 13 Creatinine 1.28 H Est GFR ( Amer) 52 L Est GFR (Non-Af Amer) 43 L Glucose 82 Calcium 7.8 L Total Bilirubin 0.3 AST 16 ALT 23 Alkaline Phosphatase 80 Total Protein 5.3 L Albumin 2.5 L 07/09/18 07/10/18 07/14/18 18:20 05:08 13:00 Creatine Kinase 44 48 185 H Impressions: Renal Ultrasound 07/08/18 00:00 IMPRESSION: Morbid obesity. Very limited visualization of the kidneys with ultrasound. No gross hydronephrosis Abdomen/Pelvis CT 07/09/18 00:00 IMPRESSION: NO SIGNIFICANT OR ACUTE PROCESS IN THE ABDOMEN OR PELVIS. Head CT 07/14/18 00:00 IMPRESSION: NORMAL BRAIN CT WITHOUT CONTRAST. EVIDENCE OF ACUTE STROKE: NO. Chest X-Ray 07/17/18 00:00 IMPRESSION: 1. Interval repositioning of the left IJV line since the prior study performed earlier on the same date. The tip of the line is near or within the superior vena cava. 2. No evidence of pneumothorax. Assessment & Plan - Diagnosis (1) Acute renal failure Is this a current diagnosis for this admission?: Yes Plan: Improving. Creatinine 1.2 from 1.46. Electrolytes within normal limits Baseline creatinine of 1.3-1.4. FENA is 0.4% which suggest pre renal IVORY. But this is likely more of a combination of pre renal IVORY from dehydration, severe sepsis and septic ATN. Imaging has ruled out obstructive uropathy. Nephrology following. CMP tomorrow (2) Staphylococcus epidermidis bacteremia Is this a current diagnosis for this admission?: Yes Plan: Most likely contamination. Please refer to ID note (3) Abscess Is this a current diagnosis for this admission?: Yes Plan: Status post I&D on 07/09/2018 and 07/17/2018. Pending surgery recommendation. Switched daptomycin to clindamycin 450 milligrams 3 times daily. Clindamycin day 01/11. Total antibiotics day 07/21 Negative nasal swab for staph aureus. We will continue decolonization with topical mupirocin over the anterior nares bilateral groin and axilla. Even though nasal swab was negative patient may still benefit from decolonization due to the fact that all her family has history of MRSA abscesses. (4) Chronic kidney disease, stage 3 Is this a current diagnosis for this admission?: Yes Plan: Possibly from chronic hypertension and diabetes mellitus. We will continue to closely monitor monitor renal functions. Nephrology following (5) Diabetes mellitus Qualifiers: Diabetes mellitus type: type 2 Is this a current diagnosis for this admission?: Yes Plan: Hemoglobin A1c is 7.3. Continue to monitor blood sugars. Continue sliding scale. Diabetic diet. 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 Her was recently discharged from [facility] for MRSA related infection of the thigh and reportedly had a recent debridement of the thigh. Started on mupirocin decolonization (7) Anemia Is this a current diagnosis for this admission?: Yes Plan: Admission hemoglobin 10.3 which suggest that patient may have had chronic anemia due to her underlying kidney disease. Hemoglobin 8.3 today. Supposed 1 PRBC on 07/16/2080. Transfuse 1 PRBC today. Start on supplemental iron. Normal iron stores, folic acid and vitamin B12 levels. Pending guaiac. CBC tomorrow. (8) Morbid obesity Is this a current diagnosis for this admission?: Yes Plan: Diet and lifestyle modification. Outpatient PCP follow-up. Patient may benefit from gastric bypass due to her BMI 56.3 (9) Altered mental state Is this a current diagnosis for this admission?: Yes Plan: Likely very sensitive to narcotics. Resolved. DC Percocet, started on tramadol low-dose. Hold tizanidine. Patient is on Tylenol for pain however is not controlling her pain. She cannot receive NSAIDs due to acute on chronic kidney injury. Will monitor
[2018-07-17] MEDS: METOPROLOL TARTRATE 25 MG TABLET PO SCH (21:12)
[2018-07-18] MEDS: OXYCODONE-ACETAMINOPHEN 5-325 MG TABLET PO PRN ×3 (02:56→15:47)
[2018-07-18] MEDS: TRAMADOL HCL 50 MG TABLET PO PRN (06:26)
[2018-07-18] MEDS: CLINDAMYCIN HCL 150 MG CAPSULE PO SCH ×2 (06:26→14:26)
[2018-07-18] MEDS: LANSOPRAZOLE 15 MG TAB.RAP.DR PO SCH (06:27)
[2018-07-18] MEDS: SODIUM BICARBONATE 650 MG TABLET PO SCH ×2 (06:27→13:29)
[2018-07-18] MEDS: HEPARIN SOD (PORCINE) 5,000 UNIT/ML 1 ML SYRINGE SUBCUT SCH ×2 (06:27→13:31)
[2018-07-18 06:57] LABS: ABSOLUTE EOSINOPHILS # (AUTO) 0.3 10^3/uL (0.0-0.6); ABSOLUTE LYMPHOCYTES (AUTO) 1.3 10^3/uL (0.5-4.7); ABSOLUTE MONOCYTES (AUTO) 0.5 10^3/uL (0.1-1.4); ABSOLUTE NEUT (AUTO) 2.5 10^3/uL (1.7-8.2); BASOPHILS % (AUTO) 0.7 % (0-2); EOSINOPHILS % (AUTO) 7.1 % (0-6); HEMATOCRIT 24.6 % (36.0-47.0); HEMOGLOBIN 8.2 g/dL (12.0-15.5); LYMPHOCYTES % (AUTO) 27.4 % (13-45); MEAN CORPUSCULAR HEMOGLOBIN 29.2 pg (27.0-33.4); MEAN CORPUSCULAR HGB CONC 33.2 g/dL (32.0-36.0); MEAN CORPUSCULAR VOLUME 88 fl (80-97); PLATELET COUNT 273 10^3/uL (150-450); RED BLOOD COUNT 2.79 10^6/uL (3.72-5.28); RED CELL DISTRIBUTION WIDTH 15.3 % (11.5-14.0); SEGMENTED NEUTROPHILS % (AUTO) 53.8 % (42-78); TOTAL CELLS COUNTED % (AUTO) 100 %; WHITE BLOOD COUNT 4.7 10^3/uL (4.0-10.5)
[2018-07-18 07:10] LABS: ALANINE AMINOTRANSFERASE 25 U/L (9-52); ALBUMIN 2.5 g/dL (3.5-5.0); ALKALINE PHOSPHATASE 82 U/L (38-126); ANION GAP 6 (5-19); ASPARTATE AMINO TRANSFERASE 15 U/L (14-36); BILIRUBIN,DIRECT 0.3 mg/dL (0.0-0.4); BILIRUBIN,TOTAL 0.3 mg/dL (0.2-1.3); BLOOD UREA NITROGEN 13 mg/dL (7-20); CALCIUM 7.7 mg/dL (8.4-10.2); CARBON DIOXIDE 23 mmol/L (22-30); CHLORIDE 105 mmol/L (98-107); GLUCOSE 88 mg/dL (75-110); SODIUM 133.8 mmol/L (137-145); TOTAL PROTEIN 5.1 g/dL (6.3-8.2)
[2018-07-18] MEDS: DULOXETINE HCL 30 MG CAPSULE.DR PO SCH (09:33)
[2018-07-18] MEDS: SENNOSIDES/DOCUSATE 8.6-50 MG 1 EACH TABLET PO SCH (09:33)
[2018-07-18] MEDS: ASPIRIN 81 MG TABLET, ENT COATED PO SCH (09:33)
[2018-07-18] MEDS: METOPROLOL TARTRATE 25 MG TABLET PO SCH (09:33)
[2018-07-18] MEDS: FERROUS SULFATE 325 MG TABLET PO SCH (09:33)
[2018-07-18] MEDS: MUPIROCIN 2% OINTMENT 22 GM TP SCH (09:34)
[2018-07-18] MEDS ORDERED: POTASSIUM CHLORIDE 10 MEQ CAPSULE.ER PO SCH (10:00)
[2018-07-18 15:54] VITALS: BP 119/75
--- NOTE | 2018-07-18 19:00 | PDOC DISCHARGE SUMMARY ---
General - Admit/Disc Date/PCP Admission Date/Primary Care Provider: 07/08/18 12:31 SIMONA LARA MD Discharge Date: 07/18/18 - Discharge Diagnosis (1) Severe sepsis Is this a current diagnosis for this admission?: Yes (2) Abscess Is this a current diagnosis for this admission?: Yes (3) MRSA (methicillin resistant Staphylococcus aureus) Is this a current diagnosis for this admission?: Yes (4) High anion gap metabolic acidosis Is this a current diagnosis for this admission?: Yes (5) Acute renal failure Is this a current diagnosis for this admission?: Yes (6) Diabetes mellitus Is this a current diagnosis for this admission?: Yes (7) Thrombocytosis Is this a current diagnosis for this admission?: Yes (8) Chronic kidney disease, stage 3 Is this a current diagnosis for this admission?: Yes - Additional Information Resuscitation Status: Full Code Discharge Diet: Regular Discharge Activity: Activity As Tolerated Prescriptions: Clindamycin HCl [Cleocin 150 mg Capsule] 450 mg PO Q8 #12 capsule Ferrous Sulfate [Feosol 325 mg Tablet] 325 mg PO DAILY #30 tablet Metoprolol Tartrate [Lopressor 50 mg Tablet] 50 mg PO Q12H #60 tablet Omeprazole 20 mg PO DAILY #14 capsule. Oxycodone HCl/Acetaminophen [Percocet 5-325 mg Tablet] 1 tab PO Q6HP PRN #16 tablet PRN Reason: Sennosides/Docusate 8.6-50 mg [Senna Plus Tablet] 1 each PO DAILY PRN #10 tablet PRN Reason: Tramadol HCl [Ultram 50 mg Tablet] 25 mg PO Q12HP PRN #10 tablet PRN Reason: Home Medications: Albuterol Sulfate [Proair HFA Inhalation Aerosol 8.5 gm MDI] 1 puff IH Q6HP PRN 07/08/18 Aspirin [Aspirin EC] 81 mg PO DAILY 07/08/18 Duloxetine HCl [Cymbalta] 60 mg PO Q12 07/08/18 Estazolam [Prosom] 2 mg PO QHS MDD LAST FILLED 04-19-18 07/08/18 Tizanidine HCl [Zanaflex 4 mg Tablet] 4 mg PO Q8HP PRN 07/08/18 Acetaminophen [Tylenol 325 mg Tablet] 650 mg PO Q6HP PRN tablet 07/18/18 Clindamycin HCl [Cleocin 150 mg Capsule] 450 mg PO Q8 #12 capsule 07/18/18 Ferrous Sulfate [Feosol 325 mg Tablet] 325 mg PO DAILY #30 tablet 07/18/18 Metoprolol Tartrate [Lopressor 50 mg Tablet] 50 mg PO Q12H #60 tablet 07/18/18 Omeprazole 20 mg PO DAILY #14 capsule. 07/18/18 Oxycodone HCl/Acetaminophen [Percocet 5-325 mg Tablet] 1 tab PO Q6HP PRN #16 tablet 07/18/18 Sennosides/Docusate 8.6-50 mg [Senna Plus Tablet] 1 each PO DAILY PRN #10 tablet 07/18/18 Tramadol HCl [Ultram 50 mg Tablet] 25 mg PO Q12HP PRN #10 tablet 07/18/18 History of Present Illness History of Present Illness: REBECCA BRITT is a 53 year old female with a past medical history of diet- controlled diabetes mellitus, history of MRSA colonization, hypertension, asthma , osteoarthritis, depression, GERD and CKD 2 who presented with fever and chills. Patient says that 10 days ago, she initially had 2 pimple-like lesions on the mid upper back and then over the next few days the started to increase in size and started to coalesce to form a big lump. She says the lesion started becoming tender and started oozing purulent discharge. Over the past week, she started having fever and chills. She says that she also started having generalized weakness and was getting easily winded. She says she had chronic on and off shortness of breath and this has also been worsening in the past week. She says her had a recent bad MRSA infection on the thigh muscle. She denies any other sick contacts. Denies recent travel. In the ER, patient was noted to have a large abscess of the left mid upper back. This was incised and drained by the ER physician. Hospital Course Hospital Course: REBECCA BRITT is a 53 year old female with a past medical history of diet- controlled diabetes mellitus, history of MRSA colonization, hypertension, asthma , osteoarthritis, depression, GERD and CKD 2 who was admitted for severe sepsis and severe metabolic acidosis secondary to a large abscess in the back. Patient was started initially on broad IV spectrum antibiotics particularly Zosyn and vancomycin. The patient had an initial debridement of the large abscess in the ER which showed a lot of purulent discharge. Due to increasing purulent secretions, surgery was consulted and did another/second I&D the next day. Patient has underlying CKD 3 but came in with acute kidney injury on top of CKD. She was given multiple fluid boluses for her severe acidosis. Her acute kidney injury was deemed to be a combination of severe dehydration, severe sepsis and septic ATN. This was initially unresponsive to fluid resuscitation and patient was eventually started on bicarbonate drip. Nephrology was consulted who did recommend continue the bicarb drip. Patient's acidosis gradually improved with fluid resuscitation and bicarbonate. Antibiotics were initially adjusted because of her worsening renal function and she was initially switched to daptomycin. Patient underwent a third I&D by surgery on 07/17/18. Her cultures from the abscess grew MRSA 2/2 bottles. Blood cultures came back positive for staph epidermidis which were deemed as contaminant. Infectious disease was consulted and patient's antibiotics were eventually de-escalated to clindamycin. Recommendation from ID was to complete a total of 14 days of antibiotic therapy. Patient has significantly improved over the next few days. Her acidosis resolved. Her creatinine also came down to baseline. Patient will be discharged on a 4 more days of clindamycin. She will follow-up closely with the wound clinic. Physical Exam Vital Signs: Temp Pulse Resp BP Pulse Ox 97.5 F 71 19 119/75 99 07/18/18 15:49 07/18/18 15:49 07/18/18 15:49 07/18/18 15:49 07/18/18 15:49 Intake & Output 07/17/18 07/18/18 07/19/18 06:59 06:59 06:59 Intake Total 840 2253 480 Output Total 50 Balance 840 2203 480 Weight 315 lb 14.758 oz 319 lb 10.724 oz General appearance: PRESENT: no acute distress, well-developed, well-nourished Head exam: PRESENT: atraumatic, normocephalic Eye exam: PRESENT: conjunctiva pink, EOMI, PERRLA. ABSENT: scleral icterus Ear exam: PRESENT: normal external ear exam Respiratory exam: PRESENT: clear to auscultation so. ABSENT: rales, rhonchi, wheezes Cardiovascular exam: PRESENT: RRR. ABSENT: diastolic murmur, rubs, systolic murmur Pulses: PRESENT: normal dorsalis pedis pul GI/Abdominal exam: PRESENT: normal bowel sounds, soft. ABSENT: distended, guarding, mass, organolmegaly, rebound, tenderness Rectal exam: PRESENT: deferred Musculoskeletal exam: PRESENT: other - Packed wound after recent I&D, dressing appears to be dry. Neurological exam: PRESENT: alert, awake, oriented to person, oriented to place , oriented to time, oriented to situation, CN II-XII grossly intact. ABSENT: motor sensory deficit Results Laboratory Results: 07/18/18 06:37 07/18/18 06:37 07/18/18 07/18/18 06:37 06:37 WBC 4.7 RBC 2.79 L Hgb 8.2 L Hct 24.6 L MCV 88 MCH 29.2 MCHC 33.2 RDW 15.3 H Plt Count 273 Seg Neutrophils % 53.8 Lymphocytes % 27.4 Monocytes % 11.0 Eosinophils % 7.1 H Basophils % 0.7 Absolute Neutrophils 2.5 Absolute Lymphocytes 1.3 Absolute Monocytes 0.5 Absolute Eosinophils 0.3 Absolute Basophils 0.0 Sodium 133.8 L Potassium 5.0 Chloride 105 Carbon Dioxide 23 Anion Gap 6 BUN 13 Creatinine 1.32 H Est GFR ( Amer) 51 L Est GFR (Non-Af Amer) 42 L Glucose 88 Calcium 7.7 L Total Bilirubin 0.3 AST 15 ALT 25 Alkaline Phosphatase 82 Total Protein 5.1 L Albumin 2.5 L 07/09/18 07/10/18 07/14/18 18:20 05:08 13:00 Creatine Kinase 44 48 185 H Impressions: Renal Ultrasound 07/08/18 00:00 IMPRESSION: Morbid obesity. Very limited visualization of the kidneys with ultrasound. No gross hydronephrosis Abdomen/Pelvis CT 07/09/18 00:00 IMPRESSION: NO SIGNIFICANT OR ACUTE PROCESS IN THE ABDOMEN OR PELVIS. Head CT 07/14/18 00:00 IMPRESSION: NORMAL BRAIN CT WITHOUT CONTRAST. EVIDENCE OF ACUTE STROKE: NO. Chest X-Ray 07/17/18 00:00 IMPRESSION: 1. Interval repositioning of the left IJV line since the prior study performed earlier on the same date. The tip of the line is near or within the superior vena cava. 2. No evidence of pneumothorax. Qualifiers - * PATIENT BEING DISCHARGED WITH ANY OF THE FOLLOWING DIAGNOSIS: No
--- NOTE | 2018-07-18 23:45 | PDOC PROGRESS REPORT ---
Subjective Progress Note for:: 07/18/18 Subjective:: Mild pains along right back abscess site Reason For Visit: SEVERE SEPSIS,BACK ABSCESS Physical Exam Vital Signs: Temp Pulse Resp BP Pulse Ox 97.5 F 71 19 119/75 99 07/18/18 15:49 07/18/18 15:49 07/18/18 15:49 07/18/18 15:49 07/18/18 15:49 Intake & Output 07/17/18 07/18/18 07/19/18 06:59 06:59 06:59 Intake Total 840 2253 480 Output Total 50 Balance 840 2203 480 Weight 143.3 kg 145 kg Exam: Packing removed. Looks clean with minimal serous drainage. Wound repacked with 3 bottles of quarter inch iodoform and sterile gauze and ABD pad placed. Results Laboratory Results: 07/18/18 06:37 07/18/18 06:37 07/18/18 07/18/18 06:37 06:37 WBC 4.7 RBC 2.79 L Hgb 8.2 L Hct 24.6 L MCV 88 MCH 29.2 MCHC 33.2 RDW 15.3 H Plt Count 273 Seg Neutrophils % 53.8 Lymphocytes % 27.4 Monocytes % 11.0 Eosinophils % 7.1 H Basophils % 0.7 Absolute Neutrophils 2.5 Absolute Lymphocytes 1.3 Absolute Monocytes 0.5 Absolute Eosinophils 0.3 Absolute Basophils 0.0 Sodium 133.8 L Potassium 5.0 Chloride 105 Carbon Dioxide 23 Anion Gap 6 BUN 13 Creatinine 1.32 H Est GFR ( Amer) 51 L Est GFR (Non-Af Amer) 42 L Glucose 88 Calcium 7.7 L Total Bilirubin 0.3 AST 15 ALT 25 Alkaline Phosphatase 82 Total Protein 5.1 L Albumin 2.5 L 07/09/18 07/10/18 07/14/18 18:20 05:08 13:00 Creatine Kinase 44 48 185 H Impressions: Renal Ultrasound 07/08/18 00:00 IMPRESSION: Morbid obesity. Very limited visualization of the kidneys with ultrasound. No gross hydronephrosis Abdomen/Pelvis CT 07/09/18 00:00 IMPRESSION: NO SIGNIFICANT OR ACUTE PROCESS IN THE ABDOMEN OR PELVIS. Head CT 07/14/18 00:00 IMPRESSION: NORMAL BRAIN CT WITHOUT CONTRAST. EVIDENCE OF ACUTE STROKE: NO. Chest X-Ray 09/10/18 00:00 IMPRESSION: 1. Interval repositioning of the left IJV line since the prior study performed earlier on the same date. The tip of the line is near or within the superior vena cava. 2. No evidence of pneumothorax. Assessment & Plan - Time Time Spent with patient: 15-24 minutes - Plan Summary Plan Summary: OK to discharge Arrange home health care for daily dressing changes with wound packing Arrange [facility] visit at [facility] in one week Continue antibiotics po
== END 2018-07-18 16:46 | disposition home or self-care (01) | DRG 853 ==
LOC: ER 08:56 → EH 12:31 → 3S 14:04
PROVIDERS: ADMIT Internal Medicine; ATTEND Internal Medicine
PROC: 0JB70ZZ Excision of Back Subcutaneous Tissue and Fascia, Open Approach (ICD-10-PCS; principal; 2018-07-09 15:30)
PROC: 02HV33Z Insertion of Infusion Device into Superior Vena Cava, Percutaneous Approach (ICD-10-PCS; 2018-07-17)
PROC: B548ZZA Ultrasonography of Superior Vena Cava, Guidance (ICD-10-PCS; 2018-07-17)
PROC: 0HB6XZZ Excision of Back Skin, External Approach (ICD-10-PCS; 2018-07-17 08:45)
DX: A41.9 Sepsis, unspecified organism (principal); N17.0 Acute kidney failure with tubular necrosis; L02.212 Cutaneous abscess of back [any part, except buttock and flank]; R65.20 Severe sepsis without septic shock; E86.0 Dehydration; I12.9 Hypertensive chronic kidney disease with stage 1 through stage 4 chronic kidney disease, or unspecified chronic kidney disease; N18.3 Chronic kidney disease, stage 3 (moderate); E11.22 Type 2 diabetes mellitus with diabetic chronic kidney disease; K21.9 Gastro-esophageal reflux disease without esophagitis; M19.90 Unspecified osteoarthritis, unspecified site; F32.9 Major depressive disorder, single episode, unspecified; Z79.82 Long term (current) use of aspirin; Z79.899 Other long term (current) drug therapy; Z86.14 Personal history of Methicillin resistant Staphylococcus aureus infection; Z90.49 Acquired absence of other specified parts of digestive tract; Z98.84 Bariatric surgery status; Z90.710 Acquired absence of both cervix and uterus; Z96.642 Presence of left artificial hip joint; Z88.8 Allergy status to other drugs, medicaments and biological substances
CPT/HCPCS: 300; 36415; 36430; 36600; 70450; 71045; 74176; 76775; 80048; 80053; 81001; 82140; 82550; 82570; 82607; 82728; 82746; 82803; 82962; 83036; 83540; 83550; 83605; 83735; 84165; 84300; 85025; 85027; 85045; 85610; 86850; 86900; 86901; 86920; 87040; 87070; 87075; 87077; 87086; 87186; 87205; 93005; 93010; 93306; 96365; 96367; 96375; 99285; A6266; C1751; J0878; J1170; J1642; J1644; J1815; J2250; J2270; J2405; J2543; J2704; J3010; J3370; J3475; J3490; J7030; J7040; J7060; P9016

== ENCOUNTER 2018-08-04 11:57 | Emergency (ER) | payer SELFPAY ==
[2018-08-04 14:39] LABS: ABSOLUTE BASOPHILS # (AUTO) 0.1 10^3/uL (0.0-0.2); ABSOLUTE EOSINOPHILS # (AUTO) 0.5 10^3/uL (0.0-0.6); ABSOLUTE LYMPHOCYTES (AUTO) 1.5 10^3/uL (0.5-4.7); ABSOLUTE MONOCYTES (AUTO) 0.4 10^3/uL (0.1-1.4); BASOPHILS % (AUTO) 1.1 % (0-2); EOSINOPHILS % (AUTO) 6.1 % (0-6); HEMATOCRIT 34.4 % (36.0-47.0); HEMOGLOBIN 11.6 g/dL (12.0-15.5); LYMPHOCYTES % (AUTO) 17.5 % (13-45); MEAN CORPUSCULAR HEMOGLOBIN 29.6 pg (27.0-33.4); MEAN CORPUSCULAR HGB CONC 33.6 g/dL (32.0-36.0); MEAN CORPUSCULAR VOLUME 88 fl (80-97); MONOCYTES % (AUTO) 4.9 % (3-13); PLATELET COUNT 394 10^3/uL (150-450); RED BLOOD COUNT 3.91 10^6/uL (3.72-5.28); RED CELL DISTRIBUTION WIDTH 15.9 % (11.5-14.0); SEGMENTED NEUTROPHILS % (AUTO) 70.4 % (42-78); TOTAL CELLS COUNTED % (AUTO) 100 %; WHITE BLOOD COUNT 8.5 10^3/uL (4.0-10.5)
--- NOTE | 2018-08-04 15:02 | ER Document Report ---
ED Wound - General Chief Complaint: Wound Recheck Stated Complaint: POSSIBLE INFECTION Time Seen by Provider: 08/04/18 12:59 Notes: Chief complaint: Chronic wound History of complain:( obtained from----patient) 53 years old female with a history of diabetes, uncontrolled had a left upper back abscess which was drained a few days ago comes in with open wound, pain over that area. She was referred to wound clinic because of lack of insurance she could not follow-up. Denies any fever chills or other constitutional symptoms. Onset: As above Duration: Gradual Severity: Moderate Quality: Sharp Context: As described above Exacerbating factor and relieving factors: REVIEW OF SYSTEMS: CONSTITUTIONAL : Denies fever, chills, or sweats. Denies recent illness. EENT: Denies eye, ear, throat, or mouth pain or symptoms. Denies nasal or sinus congestion or discharge. Denies throat, tongue, or mouth swelling or difficulty swallowing. CARDIOVASCULAR: Denies chest pain. Denies palpitations or racing or irregular heart beat. Denies ankle edema. RESPIRATORY: Denies cough, cold, or chest congestion. Denies shortness of breath, difficulty breathing, or wheezing. GASTROINTESTINAL: Denies distention. Denies nausea, vomiting, or diarrhea. Denies blood in vomitus, stools, or per rectum. Denies black, tarry stools. Denies constipation. GENITOURINARY: Denies difficulty urinating, painful urination, burning, frequency, blood in urine, or discharge. FEMALE GENITOURINARY: Denies vaginal bleeding, heavy or abnormal periods, irregular periods. Denies vaginal discharge or odor. MUSCULOSKELETAL: Denies back or neck pain or stiffness. Denies joint pain or swelling. SKIN: Denies rash, lesions or sores. HEMATOLOGIC : Denies easy bruising or bleeding. LYMPHATIC: Denies swollen, enlarged glands. NEUROLOGICAL: Denies confusion or altered mental status. Denies passing out or loss of consciousness. Denies dizziness or lightheadedness. Denies headache. Denies weakness or paralysis or loss of use of either side. Denies problems with gait or speech. Denies sensory loss, numbness, or tingling. Denies seizures. PSYCHIATRIC: Denies anxiety or stress. Denies depression, suicidal ideation, or homicidal ideation. ALL OTHER SYSTEMS REVIEWED AND NEGATIVE. PHYSICAL EXAMINATION: GENERAL: Well-appearing, well-nourished and in no acute distress. Morbid obesity HEAD: Atraumatic, normocephalic. EYES: Pupils equal round and reactive to light, extraocular movements intact, conjunctiva are normal. ENT: Nares patent, oropharynx clear without exudates. Moist mucous membranes. NECK: Normal range of motion, supple without lymphadenopathy LUNGS: Breath sounds clear to auscultation bilaterally and equal. No wheezes rales or rhonchi. HEART: Regular rate and rhythm without murmurs ABDOMEN: Soft, nontender, nondistended abdomen. No guarding, no rebound. No masses appreciated. Examination of genitals-deferred Musculoskeletal: Normal range of motion, no pitting or edema. No cyanosis. NEUROLOGICAL: Cranial nerves grossly intact. Normal speech, normal gait. Normal sensory, motor exams PSYCH: Normal mood, normal affect. SKIN: Skin over the left upper back has a cavitating open wound with good granulation tissue at the base, slight purulent discharge is noted. Dictation was performed using [employer] voice recognition software TRAVEL OUTSIDE OF THE [place] IN LAST 30 DAYS: No - HPI Notes: Dictated - Related Data Allergies/Adverse Reactions: NSAIDS (Non-Steroidal Anti-Inflamma [Nsaids] Allergy (Severe, Verified 08/04/18 12:00) Severe diarrhea Past Medical History - Social History Smoking Status: Unknown if Ever Smoked Cigarette use (# per day): No Chew tobacco use (# tins/day): No Smoking Education Provided: No Frequency of alcohol use: None Drug Abuse: None Lives with: Family Family History: Arthritis, CAD, COPD, DM, Hyperlipidemia, Hypertension, Malignancy. denies: CVA, Thyroid Disfunction Patient has suicidal ideation: No Patient has homicidal ideation: No - Past Medical History Cardiac Medical History: Reports: Hx Hypertension Denies: Hx Atrial Fibrillation, Hx Congestive Heart Failure, Hx Heart Attack , Hx Hypercholesterolemia Pulmonary Medical History: Reports: Hx Asthma, Hx Bronchitis, Hx Sleep Apnea Denies: Hx COPD, Hx Pneumonia, Hx Tuberculosis Neurological Medical History: Reports: Hx Migraine. Denies: Hx Seizures Endocrine Medical History: Reports: Hx Diabetes Mellitus Type 2 - borderline controlled by diet Renal/ Medical History: Reports: Hx End Stage Renal Disease - Stage III, Hx Ovarian Cysts, Hx Pelvic Inflammatory Disease. Denies: Hx Kidney Stones, Hx Peritoneal Dialysis Malignancy Medical History: GI Medical History: Reports: Hx Diverticulitis, Hx Gastritis, Hx Gastroesophageal Reflux Disease, Hx Colonoscopy, Hx Endoscopy. 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 Denies: Hx Bowel Surgery, Hx Section, Hx Hysterectomy, Hx Mastectomy, Hx Tubal Ligation - Immunizations Hx Diphtheria, Pertussis, Tetanus Vaccination: Yes - 2014 Hx Pneumococcal Vaccination: 11/07/08 Review of Systems - Review of Systems Notes: Dictated Physical Exam - Vital signs Vitals: Temp Pulse Resp BP Pulse Ox 98.9 F 62 20 140/80 H 97 08/04/18 12:11 08/04/18 12:11 08/04/18 12:11 08/04/18 12:11 08/04/18 12:11 - Notes Notes: Dictated Course - Vital Signs Vital signs: Temp Pulse Resp BP Pulse Ox 98.9 F 62 20 140/80 H 97 08/04/18 12:11 08/04/18 12:11 08/04/18 12:11 08/04/18 12:11 08/04/18 12:11 - Laboratory Result Diagrams: 08/04/18 14:22 08/04/18 14:22 Laboratory results interpreted by me: 08/04/18 14:22 Hgb 11.6 L Hct 34.4 L RDW 15.9 H Eosinophils % 6.1 H Discharge - Discharge Clinical Impression: Open wound Condition: Fair Disposition: HOME, SELF-CARE Instructions: Wound Infection ([facility]) Prescriptions: Cephalexin [Keflex] 500 mg PO TID #30 capsule Hydrocodone/Acetaminophen [Hydrocodon-Acetaminophen 5-325] 1 each PO TID #14 tablet Referrals: SIMONA LARA MD [Primary Care Provider] - Follow up as needed
[2018-08-04 15:09] LABS: ALANINE AMINOTRANSFERASE 20 U/L (9-52); ALBUMIN 4.2 g/dL (3.5-5.0); ALKALINE PHOSPHATASE 141 U/L (38-126); ANION GAP 13 (5-19); ASPARTATE AMINO TRANSFERASE 27 U/L (14-36); BILIRUBIN,DIRECT 0.4 mg/dL (0.0-0.4); BILIRUBIN,TOTAL 0.5 mg/dL (0.2-1.3); BLOOD UREA NITROGEN 16 mg/dL (7-20); CALCIUM 9.5 mg/dL (8.4-10.2); CARBON DIOXIDE 17 mmol/L (22-30); CHLORIDE 108 mmol/L (98-107); GLUCOSE 90 mg/dL (75-110); POTASSIUM 5.2 mmol/L (3.6-5.0); SODIUM 138.2 mmol/L (137-145); TOTAL PROTEIN 7.6 g/dL (6.3-8.2)
[2018-08-04 15:44] VITALS: BP 145/90
== END 2018-08-04 15:10 | disposition home or self-care (01) ==
LOC: ER 11:57
DX: L02.212 Cutaneous abscess of back [any part, except buttock and flank] (principal); E11.22 Type 2 diabetes mellitus with diabetic chronic kidney disease; I12.0 Hypertensive chronic kidney disease with stage 5 chronic kidney disease or end stage renal disease; N18.6 End stage renal disease; Z99.2 Dependence on renal dialysis; Z86.14 Personal history of Methicillin resistant Staphylococcus aureus infection; Z90.49 Acquired absence of other specified parts of digestive tract; Z98.84 Bariatric surgery status; Z96.642 Presence of left artificial hip joint
CPT/HCPCS: 36415; 80053; 85025; 99283